=== PATIENT | male | born 1950 | race Caucasian/White ===

== ENCOUNTER 2020-09-15 14:03 | Outpatient (CLI) | payer OTHER, SELFPAY ==
[2020-09-20 03:11] LABS: Abnormal Protein Band 1 3.7 g/dL; Albumin 3.7 g/dL (3.8-4.8); Alpha 1 Globulin 0.3 g/dL (0.2-0.3); Alpha 2 Globulin 0.7 g/dL (0.5-0.9); Beta 1 Globulin 0.4 g/dL (0.4-0.6); Gamma Globulin 3.9 g/dL (0.8-1.7); Protein, Total 9.1 g/dL (6.1-8.1)
== END 2020-09-15 14:04 | disposition home or self-care (01) ==
PROVIDERS: PCP Emergency Medicine; Visit Provider Emergency Medicine
DX: R79.82 Elevated C-reactive protein (CRP) (principal)
CPT/HCPCS: 36415; 84155; 84165

== ENCOUNTER 2020-10-28 14:54 | Outpatient (CLI) | payer OTHER, SELFPAY ==
--- NOTE | ~2020-10-28 | DEXA_ITS ---
Bone Density Report Name: Tommy Antony Age: 70 Sex: Male Ethnicity: White Date of : 1950 Indication: osteopenia; height loss; Referring Provider: Abhinav Caal Study: Bone densitometry was performed. Exam Date: October 28, 2020 Accession number: [id number] Bone Density: Region BMD T-score Z-score Classification AP Spine (L1-L4) 0.851 -2.2 -1.3 Osteopenia Femoral Neck (Left) 0.522 -3.0 -1.8 Osteoporosis Total Hip (Left) 0.709 -2.1 -1.4 Osteopenia Total Hip Bilateral Avg 0.680 -2.3 -1.6 Osteopenia Femoral Neck (Right) 0.481 -3.3 -2.1 Osteoporosis Total Hip (Right) 0.650 -2.5 -1.8 Osteoporosis World Health Organization criteria for BMD impression classify patients as: Normal (T-score at or above -1.0), Osteopenia (T-score between -1.0 and -2.5), or Osteoporosis (T-score at or below -2.5). 10-year Fracture Risk: FRAX not reported because: Some T-score for Spine Total or Hip Total or Femoral Neck at or below -2.5 Previous Exams: Region Exam Age BMD T-score BMD Change BMD Change Date g/cm2 vs Baseline vs Previous AP Spine(L1-L4) 10/28/2020 70 0.851 -2.2 -0.031(-3.5%)* -0.031(-3.5%)* 10/23/2016 66 0.882 -1.9 Total Hip(Left) 10/28/2020 70 0.709 -2.1 -0.054(-7.1%)* -0.054(-7.1%)* 10/23/2016 66 0.763 -1.8 Total Hip(Right) 10/28/2020 70 0.650 -2.5 -0.087(-11.8%) -0.087(-11.8%) 10/23/2016 66 0.737 -2.0 *Denotes significance at 95% confidence level, LSC for AP Spine = 0.022 g/cm2, LSC for Total Hip = 0.027 g/cm2 Clinical Information Provided by Patient: Has used the following medications: Vitamin D Patient maximum height was 69 No regular weight bearing exercise Drinks caffeinated beverages Impression: The patient has osteoporosis, based on the Right Femoral Neck T-score. The BMD for the AP Spine(L1-L4) decreased, changing by -3.5% since the last DXA exam. The BMD for the Total Hip(Left) decreased, changing by -7.1% since the last DXA exam. The BMD for the Total Hip(Right) decreased, changing by -11.8% since the last DXA exam. Discussion: HIGH RISK OF FRACTURE. BONE DENSITY IS UNDESIRABLY LOW AT ONE OR MORE SKELETAL SITES, CONSISTENT WITH OSTEOPOROSIS. ALSO, BONE DENSITY IS LOWER THAN EXPECTED FOR AGE, SEX AND RACE AT ONE OR MORE SKELETAL SITES; RECOMMEND A DILIGENT SEARCH FOR SECONDARY CAUSES OF BONE LOSS. This patient's lowest T-score meets the World Health Organization's (WHO) criteria for osteoporosis at one or more sites (T-score -2.5 or below)
== END 2020-10-28 14:55 | disposition home or self-care (01) ==
PROVIDERS: PCP Emergency Medicine; Visit Provider Emergency Medicine
DX: M81.0 Age-related osteoporosis without current pathological fracture (principal); M85.851 Other specified disorders of bone density and structure, right thigh; M85.852 Other specified disorders of bone density and structure, left thigh
CPT/HCPCS: 77080

== ENCOUNTER 2021-08-01 20:24 | Emergency (ER) | payer OTHER, SELFPAY ==
--- NOTE | ~2021-08-01 | XR_ITS ---
EXAM: XR thoracic spine 2V HISTORY: PAIN SINCE MAY RADIATES DOWN RT LEG,WORSE TONIGHT COMPARISON: X-ray chest 09/25/2014. FINDINGS: Severely decreased mineralization. This decreases the sensitivity of radiographs. Exaggera yvette thoracic kyphosis. Severe height loss at T12. Mild anterior wedge deformity at T11. Remaining una tebral body heights are maintained given that the upper thoracic spine is poorly visualized in the la teral view. IMPRESSION: Limited exam due to severe osteopenia and poor visualization of the upper thoracic spine and lateral view. Acute versus chronic thoracic compression deformities, severe at T12, mild at T11. Reviewed, dictated and finalized at location K. IMPRESSION: Limited exam due to severe osteopenia and poor visualization of the upper thora cic spine and lateral view. Acute versus chronic thoracic compression deformities, severe at T12, mild at T 11.
--- NOTE | ~2021-08-01 | XR_ITS ---
EXAM: XR lumbar spine 2-3V HISTORY: PAIN SINCE MAY RADIATES DOWN RT LEG,WORSE TONIGHT COMPARISON: CT abdomen and pelvis 09/26/2014. FINDINGS: Bilateral iliac grafts. Soft tissue anchors project over the right pelvis. Severe osteopen ia. 5 nonrib-bearing lumbar-type vertebral bodies with intact pedicles. Stable grade 1 anterolisthesi s of L4 on L5. Multilevel vertebral body height loss at all levels in the lumbar spine. Mild anterior wedge deformity of L2 and L3. IMPRESSION: Moderate vertebral body compression fractures, all levels in the lumbar spine. All demonstrate progre ssion since the comparison study. Reviewed, dictated and finalized at location K. IMPRESSION: Moderate vertebral body compression fractures, all levels in the lumbar spine. All demonstrate progression since the comparison study.
--- NOTE | ~2021-08-01 | CT_ITS ---
EXAMINATION: CT thoracic lumbar wo con DATE: 08/01/2021 23:26 INDICATION: Back pain TECHNIQUE: Computed tomography (CT) of the thoracic and lumbar spine was performed without intravenou s contrast. The dose-length product (DLP) was 1276.51 mGy-cm. Iterative reconstruction was used. COMPARISON: None FINDINGS: Thoracic spine: There is an age-indeterminate compression fracture of T6 with approximately 50% loss of anterior vertebral body height. There is an age-indeterminate compression fracture of T12 with rusty roximately 70% of anterior vertebral body loss. Bone alignment is normal. There is moderate to severe loss of intervertebral disc space height at multiple levels in the thoracic spine. Lumbar spine: There are multiple age-indeterminate fractures of the lumbar spine. At L1 there is a co mpression fracture with approximately 30% vertebral body loss. At L2 there is a compression fracture with approximately 50% vertebral body height loss. At L3 there is a compression fracture with approxi mately 40% vertebral body height loss. There is a burst fracture of L4 with approximately 4 mm of ret ropulsion of fracture fragments. There is a compression fracture of L5 with approximately 35% vertebr al body height loss. There is severe loss of intervertebral disc space height at L1-2 and L5-S1. Endo luminal stents are noted in the common iliac veins. IMPRESSION: 1. Age-indeterminate compression and burst fractures of the thoracic and lumbar spine as detailed abo ve. Reviewed, dictated and finalized at location A. IMPRESSION: 1. Age-indeterminate compression and burst fractures of the thoracic and lumbar spine as detailed above.
[2021-08-01 20:27] VITALS: BP 110/61; PULSE 93; RESP 16; TEMP 37.3; O2SAT 99
[2021-08-01 22:14] VITALS: BP 129/73; PULSE 78; RESP 18; O2SAT 98
[2021-08-01] MEDS: IBUPROFEN 600 MG TABLET PO (23:03)
[2021-08-01] MEDS: ACETAMINOPHEN 325 MG TABLET 650 MG PO (23:04)
--- NOTE | 2021-08-01 23:07 | PC.NURSE ---
assumed care of pt. at this time. report from ISAI Castano and ISAI Velásquez
[2021-08-01 23:08] VITALS: BP 110/61; PULSE 74; RESP 19; O2SAT 98
[2021-08-01] MEDS: LIDOCAINE 5% PATCH 1 PATCH TRANSDERM (23:57)
--- NOTE | 2021-08-02 00:07 | ED.BACK ---
HPI - Back Pain/Injury General Chief Complaint: Back Pain/Injury <PHYLLIS Hawkins Last Filed: 08/02/21 02:10> Stated Complaint: Back pain, seizing up <PHYLLIS Hawkins Last Filed: 08/02/21 02:10> Time Seen by Provider: 08/01/21 22:05 <PHYLLIS Hawkins Last Filed: 08/02/21 02:10> History of Present Illness HPI Narrative: Patient is a 70-year-old male here for evaluation of low back pain that first came on about 2 months ago but worsened in severity today. The pain begins in his right low back and occasionally will radiate down his right leg or left lower back. He states the pain feels like a spasm . The pain worsened today when he was twisting his torso. He attempted 400 milligrams of ibuprofen without relief of pain. He denies no known trauma to his back, no recent falls, incontinence or retention of his bowel or bladder, saddle anesthesia. Denies any chest pain, shortness of breath, fevers, rashes. <PHYLLIS Hawkins Last Filed: 08/02/21 02:10> Related Data Allergies/Adverse Reactions: Allergies Allergy/AdvReac Type Severity Reaction Status Date / Time Penicillins Allergy Intermediate Unknown Verified 08/01/21 23:06 <PHYLLIS Hawkins Last Filed: 08/02/21 02:10> Review of Systems Review of Systems: Gen.: Denies fevers or chills Eyes: Denies eye pain or visual change ENT: Denies congestion Respiratory: Denies shortness of breath or cough CV: Denies chest pain or palpitations GI: Denies abdominal pain nausea, emesis or diarrhea denies burning, urgency, frequency or hematuria Musculoskeletal: Reports back pain. Denies saddle anesthesia, incontinence or retention of bowel or bladder. Neuro: Denies numbness, tingling, weakness or focal weakness Skin: Denies rash Except as documented, all other systems reviewed and negative <PHYLLIS Hawkins Last Filed: 08/02/21 02:10> Exam Narrative: APPEARANCE: Uncomfortable appearing. Head normocephalic and atraumatic. EYES: PERRLA/EOMI, conjunctivae clear EARS: External ear normal in appearance THROAT: Oropharynx is clear. Mucous membranes are moist. NECK: Supple. No adenopathy, no masses. RESPIRATORY: Airway patent, respirations nonlabored. Clear to auscultation bilaterally, no rales, rhonchi, wheezing. CARDIOVASCULAR: Regular rate and rhythm without murmurs, rubs, or gallops. 2+ DP and PT pulses bilaterally. ABDOMINAL: Normoactive bowel sounds. Soft, nontender, nondistended. No rebound tenderness or guarding. MUSCULOSKELETAL: Tender to palpation in left paraspinal region; no palpable muscle spasm. No midline tenderness along cervical, thoracic, or lumbar spine. Straight leg raise negative bilaterally. Extremities are warm and well-perfused. No edema. No CVA tenderness. NEURO: Normal speech. No focal neurologic deficits. SKIN: Skin is warm and dry. No rashes. Patient has dry skin to bilateral lower extremities with thick toenails, but no ulcers noted on feet bilaterally. PSYCHIATRIC: Normal affect/mood. <Lisa Cueva PA-C - Last Filed: 08/02/21 02:10> Course Course Emergency Course: CT L spine and T spine with evidence of compression fracture at T6 and T12, with no evidence of retropulsion or posterior element fracture. <Lisa Cueva PA-C - Last Filed: 08/02/21 02:10> OUTPATIENT SERVICES DIRECTOR/PA Physician Supervision I did not see this patient but the care plan was discussed with me, imaging reviewed. I agree with the documentation as above <Alex Alas MD - Last Filed: 08/02/21 02:23> Vital Signs Vital signs: Vital Signs Temperature 37.3 C 08/01/21 20:27 Pulse Rate 93 08/01/21 20:27 Respiratory Rate 16 08/01/21 20:27 Blood Pressure 110/61 08/01/21 20:27 Pulse Oximetry 99 08/01/21 20:27 Temperature 37.3 C 08/01/21 20:27 Pulse Rate 88 08/02/21 02:15 Respiratory Rate 14 08/02/21 02:15 Blood Pressure 110/74
[2021-08-02] MEDS: CYCLOBENZAPRINE HCL 10 MG TABLET PO (01:14)
[2021-08-02 01:18] VITALS: BP 111/74; PULSE 77; RESP 14; O2SAT 97
[2021-08-02 02:15] VITALS: BP 110/74; PULSE 88; RESP 14; O2SAT 97
== END 2021-08-02 02:15 | disposition home or self-care (01) ==
PROVIDERS: Emergency Provider Emergency Medicine; PCP Emergency Medicine
DX: S39.012A Strain of muscle, fascia and tendon of lower back, initial encounter (principal); X58.XXXA Exposure to other specified factors, initial encounter
CPT/HCPCS: 72070; 72100; 72128; 72131; 99284; A9270

== ENCOUNTER 2021-09-01 23:51 | Inpatient (IN) | payer OTHER, SELFPAY ==
--- NOTE | ~2021-09-01 | BM_ITS ---
EXAMINATION: CCL bone marrow asp w bx diag ORDER COMPLETED DATE: 09/05/2021 12:58 INDICATION: Multiple myeloma workup. Multiple fractures suspicious for pathologic fracture. TECHNIQUE: A time-out was performed to verify the patient's name, date of , and procedure to b e performed. The procedure including the risks and benefits was discussed with the patient. Risks dis cussed included bleeding, infection, nerve injury and allergic reaction. The patient understood the r isks and agreed to proceed. The skin overlying the right posterior iliac spine was prepped and draped in usual sterile fashion. Anesthetic was administered with 1% lidocaine subcutaneously. Moderate co nscious sedation was achieved with 100 mcg fentanyl IV and 2 mg of Versed IV. An 11 gauge needle was inserted into the ilium with fluoroscopic guidance. Bone marrow was aspirated. An 8 gauge needle was then inserted into the ilium with fluoroscopic guidance. A core bone marrow biopsy was obtained. The needle was removed and the entry site was cleaned and dressed. There were no immediate complications . A total of 9 fluoroscopic images were recorded. Fluoroscopy exposure time was 0.1 minutes. Total DA P was 48.0 mGycm^2 FINDINGS: Real-time fluoroscopy demonstrates the biopsy needle tip overlying the right posterior mehnaz c spine. IMPRESSION: 1. Successful fluoroscopic guided bone marrow aspiration. 2. Successful fluoroscopic guided bone marrow biopsy. Reviewed, dictated and finalized at location A.
--- NOTE | ~2021-09-01 | CT_ITS ---
EXAMINATION: CTA chest PE protocol DATE: 09/02/2021 05:17 INDICATION: Shortness of breath, tachycardia TECHNIQUE: Computed tomography angiography (CTA) of the chest was performed with 100 mL Omnipaque-350 intravenous contrast timed to evaluate the pulmonary arteries. Coronal maximum intensity projection 3D-reconstructions were created by the technologist. The dose-length product (DLP) was 526.72 mGy-cm. Automated exposure control and iterative reconstruction technique were employed. COMPARISON: 08/01/2021 FINDINGS: The pulmonary arteries are moderately well-opacified. No pulmonary embolism is identified. There are airspace opacities in the lower lobes. Small pleural effusions are present. There is no pne umothorax. Cardiomegaly is noted. There are no pathologically enlarged thoracic lymph nodes. There ar e multiple left-sided rib fractures, some acute and some healing. There is a new burst fracture of T1 1. There is a stable burst fracture of T12 there is stable compression fracture of T6. IMPRESSION: 1. No pulmonary embolism identified. 2. Bibasilar airspace opacities, consistent with atelectasis and/or pneumonia. 3. New burst fracture of T11. 4. Multiple left-sided rib fractures, acute and healing. Reviewed, dictated and finalized at location A.
--- NOTE | ~2021-09-01 | XR_ITS ---
EXAMINATION: XR chest 1V portable INDICATION: Shortness of breath TECHNIQUE: Portable AP chest at 0129 hours COMPARISON: 09/25/2014 FINDINGS: There is mild atelectasis of the lung bases. No pleural effusion or pneumothorax is identif ied. Cardiomegaly is noted. IMPRESSION: 1. Mild atelectasis of the lung bases. Reviewed, dictated and finalized at location A.
--- NOTE | ~2021-09-01 | XR_ITS ---
EXAMINATION: BONE SURVEY/METASTATIC SURVEY DATE: 09/02/2021 INDICATION: Old fractures. Assess for multiple myeloma. TECHNIQUE: A skeletal survey was performed including AP views of the chest, abdomen and pelvis; AP an d lateral/lateral swimmers views of the cervical, thoracic and lumbar spine; lateral view of the skul l, and AP and lateral views of the appendicular skeleton excluding the hands and feet. COMPARISON: CT chest dated 09/02/[address] thoracic and lumbar spine dated 08/01/2021 FINDINGS: There are multiple chronic thoracic and lumbar compression and burst fractures. There are also severa l bilateral rib fractures which appear to be a very including ascites. Comment diffuse osteopenia thr oughout the axial and appendicular skeleton with increased prominence of the trabecular pattern resul ting in artifactual appearance of numerous small lucencies which is most conspicuous in the long bone s. Multiple small lucencies project over the skull but no definitive lytic lesions along the profiled portions of the inner or outer tables of the skull. No clearly suspicious lytic or blastic bone lesi ons evident on the plain radiographs. On review of the CT images of the chest, thoracic and lumbar sp ine there is redemonstration of the prominent diffuse osteopenia resulting diffuse increased lucency of the bones. The most suspicious locations for or discrete lytic lesions include at the right escalator attendant ior aspect of the T1 vertebral body where there is loss of the trabecular pattern and with heterogene ous soft tissue attenuation medullary space which extends into the right transverse process. Endolumi nal stenting of the left and right common iliac veins. Postoperative change of right inguinal hernia repair. Small lung volumes particularly on the left where there is relative elevation left hemidiaphr agm. Bibasilar opacities most likely atelectasis although differential includes pneumonia. Heart size is normal. IMPRESSION: 1. Multiple compression and burst fractures in the thoracic and lumbar spine and multiple bilateral r ib fractures of varying thickness disease. 2. Widespread increased lucency of the bones with appearance consistent with marked diffuse osteopeni a. No definitive lytic lesions evident on the plain radiographs although there is suggestion of a cou ple potential lytic lesions on the CT images at T1 and at the left innominate bone for which differen tial would include both osteopenia and multiple myeloma. Reviewed, dictated and finalized at location A. IMPRESSION: 1. Multiple compression and burst fractures in the thoracic and lumbar spine an d multiple bilateral rib fractures of varying thickness disease. 2. Widespread increased lucency of the bones with appearance consistent with ma rked diffuse osteopenia. No definitive lytic lesions evident on the plain radio graphs although there is suggestion of a couple potential lytic lesions on the CT images at T1 and at the left innominate bone for which differential would in clude both osteopenia and multiple myeloma.
[2021-09-01 23:56] VITALS: BP 146/81; PULSE 121; RESP 26; TEMP 37.3; O2SAT 98
[2021-09-02] VITALS (44 sets, daily range): BP systolic 101–158; BP diastolic 66–101; PULSE 93–115; RESP 12–25; TEMP 36.3–36.9; O2SAT 97–100; BMI 24.7
--- NOTE | 2021-09-02 | ECHO_ITS ---
Patient Info Name: Tommy Antony Age: 71 years : 1950 Gender: Male Ht: 64 in Wt: 144 lbs BSA: 1.73 m2 HR: 103 bpm BP: 127 / 66 mmHg Heart Rhythm: Sinus Rhythm Technical Quality: Fair Exam Date: 09/02/2021 4:34 PM Exam Location: [facility] Patient Status: Inpatient Admit Date: 09/02/2021 Staff Ordering Physician: Isacc Dumont MD Accounting Tutor: Pina Aguiar RDCS Attending Provider: Leandro Joy DO Exam Type: CA echo doppler color flow Study Info Indications - cp Complete two-dimensional, color flow and Doppler transthoracic echocardiogram is performed. Summary 1. Complete two-dimensional, color flow and Doppler transthoracic echocardiogram is performed. 2. Left ventricular chamber dimension is normal. 3. Left ventricular systolic function is normal, estimated at 60-65%. 4. There is mildly increased left ventricular wall thickness. 5. The left ventricular diastolic function is grade I diastolic dysfunction. 6. E/e' 6 is not elevated. 7. Left atrial chamber dimension is moderately enlarged. 8. The mitral valve has mildly calcified annulus. 9. There is trace mitral valve regurgitation. 10. There is trace tricuspid valve regurgitation. 11. No pulmonary hypertension, estimated pulmonary arterial systolic pressure is 36 mmHg. 12. There is trace pulmonic regurgitation. Left Ventricle E/e' 6 is not elevated. Left ventricular chamber dimension is normal. Left ventricular systolic function is normal, estimated at 60-65%. There is mildly increased left ventricular wall thickness. The left ventricular diastolic function is grade I diastolic dysfunction. Right Ventricle Right ventricular systolic function is normal and with normal TAPSE 2.5 cm. Right ventricular chamber dimension is normal. Left Atria Left atrial chamber dimension is moderately enlarged. Right Atria Right atrial chamber dimension is normal. Aortic Valve The aortic valve is trileaflet. There is no aortic valve stenosis. There is no aortic valve regurgitation. Pulmonic Valve There is trace pulmonic regurgitation. Mitral Valve The mitral valve has mildly calcified annulus. There is no mitral valve stenosis. There is trace mitral valve regurgitation. Tricuspid Valve There is trace tricuspid valve regurgitation. No pulmonary hypertension, estimated pulmonary arterial systolic pressure is 36 mmHg. Pericardium/Pleural There is no pericardial effusion. Inferior Vena Cava Normal inferior vena cava with >50% collapse upon inspiration consistent with normal right atrial pressure, 5 mmHg. Aorta The aortic root size at the sinus of Valsalva is normal. Left Ventricular Outflow Tract Name Value Normal LVOT 2D LVOT Diameter 2.0 cm LVOT Doppler LVOT Peak Gradient 7 mmHg LVOT Mean Gradient 3 mmHg LVOT VTI 21 cm LVOT VTI/AV VTI Ratio 0.9 LVOT Stroke Volume 67 ml LVOT CO 6.7 l/min LVOT CI
--- NOTE | 2021-09-02 | ECG_ITS ---
Measurements Intervals [place] Rate: 117 P: 56 TN: 141 QRS: 24 QRSD: 96 T: 12 QT: 295 QTc: 412 Interpretive Statements SINUS TACHYCARDIA VENTRICULAR PREMATURE COMPLEX BORDERLINE ST-T WAVE ABNORMALITY- INFERIOR LEADS BASELINE ARTIFACT- I, II, III, AVL, AVF, V5-V6 ABNORMAL ECG Electronically Signed On 09-02-2021 6:33:28 CDT by Madi Bradley D.O.
[2021-09-02] MEDS: ALBUTEROL SULFATE NEB 2.5 MG/3 ML INH 5 MG INHALATION ×3 (00:52→02:18)
[2021-09-02] MEDS: IPRATROPIUM BR 0.02% INH SOLN 0.5 MG/2.5 ML VIAL INHALATION ×3 (00:53→02:18)
[2021-09-02 01:26] LABS: Alanine Aminotransferase 21 U/L (6-50); Albumin Level 3.2 g/dL (3.5-5.1); Alkaline Phosphatase 106 U/L (38-126); Anion Gap 4 mmol/L (8-16); Aspartate Amino Transferase 42 U/L (17-59); Bilirubin,Total 0.2 mg/dL (0.2-1.3); Blood Urea Nitrogen 30 mg/dL (9-20); Carbon Dioxide 26 mmol/L (22-30); Chloride 113 mmol/L (98-107); Estimated CRCL calculation 49 ml/min; Estimated Glomerular Filt Rate > 60; Glucose 100 mg/dL (65-110); Magnesium 1.7 mg/dL (1.6-2.3); Potassium 4.2 mmol/L (3.4-5.0); Sodium 143 mmol/L (137-145)
[2021-09-02 01:40] LABS: NT Pro B Type Natriuretic Pept 83 pg/mL (5-100); Troponin I 0.036 ng/mL (0.000-0.034)
[2021-09-02 01:42] LABS: Basophils Percent Auto 0.4 % (0.2-1.2); Eosinophils Absolute Auto 0.1 K/mm3 (0-0.3); Eosinophils Percent Auto 1.8 % (0-4.4); Hematocrit 23.8 % (42.0-52.0); Hemoglobin 7.2 g/dL (14.0-18.0); Immature Granulocyte Absolute 0.03 K/mm3 (0.00-0.031); Immature Granulocyte Percent A 1.1 % (0-0.5); Lymphocytes Absolute Auto 1.09 K/mm3 (0.9-3.2); Lymphocytes Percent Auto 39.6 % (18.3-44.2); Mean Corpuscular HGB Conc 30.3 g/dl (32-36); Mean Corpuscular Volume 109.2 fl (80-100); Mean Platelet Volume 8.6 fl (7.4-10.4); Monocytes Absolute Auto 0.1 K/mm3 (0.1-0.6); Neutrophils Absolute Auto 1.5 K/mm3 (1.3-6.7); Neutrophils Percent Auto 53.1 % (45.5-73.1); Platelet Count Result 154 k/mm3 (150-375); Red Blood Count 2.18 M/mm3 (4.6-6.20); Red Cell Distribution Width 16.2 % (11.5-14.5); White Blood Count 2.8 K/mm3 (4.5-10.0)
[2021-09-02] MEDS: WARFARIN (*PBKC) 2 MG TABLET PO (02:42)
[2021-09-02 04:27] LABS: Troponin I 0.039 ng/mL (0.000-0.034)
--- NOTE | 2021-09-02 04:28 | ED.SOB ---
HPI - SOB/Dyspnea General Chief Complaint: Shortness of Breath/Dyspnea Stated Complaint: sob Time Seen by Provider: 09/02/21 00:03 History of Present Illness HPI Narrative: 71-year-old male presents here with 1 month of difficulty breathing, worse with exertion, he is already on Coumadin for DVT, she was seen in clinic today and with his shallow breathing, the nurse told him come to the ER. Denies any nausea or vomiting, fevers or chills, cough. Related Data Allergies Allergy/AdvReac Type Severity Reaction Status Date / Time Penicillins Allergy Intermediate Unknown Verified 08/01/21 23:06 Review of Systems Review of Systems: All systems reviewed & are unremarkable except as noted in HPI and below PMFSH Past Medical History Medical History DVT (deep venous thrombosis) Exam Narrative: EXAMINATION OF ORGAN SYSTEMS/BODY AREAS: Constitutional: Vital signs per nursing GENERAL:[No acute distress, non-toxic appearing.] HEAD: Normal with no signs of head trauma. EYES: EOMI, conjunctiva normal ENT: Hearing grossly intact LUNGS: Tachypneic, clear lung sounds HEART: Tachycardic ABD: [Soft], [nontender to palpation] EXT: Normal range of motion SKIN: [No rashes or lesions.] NEURO: [Alert and oriented x 3. No gross focal sensory or strength deficits.] PSYCH: Normal affect Course Course Emergency Course: ED COURSE AND MEDICAL DECISION MAKIN-year-old male presenting with dyspnea on exertion. Vital signs notable for tachycardia, exam shows clear lungs but dyspneic patient. Differential includes ACS/GA, valvular etiology, less likely PE as he has been taking Coumadin, possibly COPD. EKG done in triage negative for acute ischemic changes. Cardiac workup is initiated. EKG: Performed in triage and interpreted by me. Sinus tachycardia. Rate 117. Normal axis. RI normal. QRS duration normal. QTc normal. No pathologic Q waves. No ST segment elevation or depression to suggest acute ischemia. No RV strain pattern. Troponin is elevated, ASA is given, I feel patient would benefit from admission at this time, he is amenable to this. DISPOSITION: Admit to telemetry, case discussed with hospitalist IMPRESSION: Acute chest pain, NOS. Vital Signs Vital signs: Vital Signs Temperature 99.2 F 09/01/21 23:56 Pulse Rate 121 H 09/01/21 23:56 Respiratory Rate 26 H 09/01/21 23:56 Blood Pressure 146/81 H 09/01/21 23:56 Pulse Oximetry 98 09/01/21 23:56 Temperature 99.2 F 09/01/21 23:56 Pulse Rate 109 H 09/02/21 02:18 Respiratory Rate 20 09/02/21 02:18 Blood Pressure 146/81 H 09/01/21 23:56 Pulse Oximetry 99 09/02/21 00:11 MDM - SOB/Dyspnea Lab Data Result diagrams: 09/02/21 01:08 09/02/21 01:08 Labs: Lab Results 09/02/21 09/02/21 09/02/21 Range/Units 01:08 01:08 03:49 WBC 2.8 L (4.5-10.0) K/mm3 RBC 2.18 L (4.6-6.20) M/mm3 Hgb 7.2 L (14.0-18.0) g/dL Hct 23.8 L (42.0-52.0) % MCV 109.2 H (80-100) fl MCH 33.0 (26-34) pg MCHC 30.3 L (32-36) g/dl RDW 16.2 H (11.5-14.5) % Plt Count 154 (150-375) k/mm3 MPV 8.6 (7.4-10.4) fl Immature Gran % (Auto) 1.1 H (0-0.5) % Neut % (Auto) 53.1 (45.5-73.1) % Lymph % (Auto) 39.6 (18.3-44.2) % Webb % (Auto) 4.0 (2.6-8.5) % Eos % (Auto) 1.8 (0-4.4) % Baso % (Auto) 0.4 (0.2-1.2) % Lymph # (Auto) 1.09 (0.9-3.2) K/mm3 Webb # (Auto) 0.1 (0.1-0.6) K/mm3 Eos # (Auto) 0.1 (0-0.3) K/mm3 Baso # (Auto) 0.0 (0.0-0.1) K/mm3 Abs Immat Gran (auto) 0.03 (0.00-0.031) K/mm3 Absolute Neuts (auto) 1.5 (1.3-6.7) K/mm3 Absolute Nucleated RBC 0.0 (0.0-0.012) K/mm3 Nucleated RBC % 0.0 (0.0-0.2) % Sodium 143 (137-145) mmol/L Potassium 4.2 (3.4-5.0) mmol/L Chloride 113 H (98-107) mmol/L Carbon Dioxide 26 (22-30) mmol/L Anion Gap 4 L (8-16) mmol/L BUN 30 H
[2021-09-02 04:39] LABS: SARS-CoV-2 RNA PCR Negative
[2021-09-02] MEDS: ASPIRIN 81 MG CHEWABLE TABLET 324 MG PO (05:30)
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
--- NOTE | 2021-09-02 07:56 | ADMGEN ---
This patient, Tommy Antony, was admitted to IMU Room 202-01 at 0721. Patient/family oriented to hospital policies and general routines including ID bracelet, bed and alarms, visiting hours, pain management, procedures, bathroom and other care routines, personal items, smoking policy, room service/diet, and visiting hours. Information on how to activate the Rapid Response Team has been discussed. Patient/Family are encouraged to report perceived risks to care and to ask questions if they do not understand what they are told or what they should do.
[2021-09-02 14:37] LABS: Immature Reticulocyte Fraction 16.9 % (3.0-15.9); Reticulocyte Hemoglobin Conten 31.8 pg (28.2-35.7); Reticulocyte Percent 0.89 % (0.7-4.3); Reticulocytes Absolute 0.02 B/L (32.2-175.7)
[2021-09-02 14:46] LABS: Phosphorus 4.2 mg/dL (2.5-4.5)
[2021-09-02 14:48] LABS: Rheumatoid Factor < 8.6 IU/ML (<12)
[2021-09-02 14:48] LABS: INR 2.7; Partial Thromboplastin Time 35.2 SECONDS (22.3-36.8); Prothrombin Time 27.7 Seconds (11.1-14.7)
[2021-09-02 15:06] LABS: Iron 74 ug/dL (49-181)
[2021-09-02 15:16] LABS: Percent Iron Saturation 30 % (20-50)
[2021-09-02 15:28] LABS: Hemoglobin A1C 5.9 % (<5.7)
[2021-09-02 15:53] LABS: Folic Acid 7.6 ng/mL (2.76->20)
[2021-09-02 15:54] LABS: Immunoglobulin A < 40 mg/dL (70-400); Immunoglobulin G 6220 mg/dL (700-1600); Immunoglobulin M < 25 mg/dL (40-230)
[2021-09-02 16:19] LABS: Vitamin D 25 Hydroxy 64.2 ng/mL
[2021-09-02] MEDS: FERROUS SULFATE 324 MG TABLET PO (16:20)
[2021-09-02] MEDS: TAMSULOSIN HCL 0.4 MG CAPSULE PO (16:20)
[2021-09-02] MEDS: PANTOPRAZOLE 40 MG TABLET PO (16:21)
[2021-09-02 16:45] LABS: Glucose Point of Care 105 mg/dl (65-105)
--- NOTE | 2021-09-02 16:47 | PDONCCN ---
HPI - Date of Consult Date/Time: 09/02/21 16:47 Requesting Physician: Leandro Joy DO Primary Care Provider: Abhinav Caal MD - Consult Narrative Reason for consult: Likely multiple myeloma Narrative: Tommy Antony is a 71 year old male who has been in good health came to the emergency department with complaint of shortness of breath. He developed back pain while he was shoveling snow back in May of 2021. He came to the ER in July and found to have compression fracture of T6 and T12 vertebral body. Now he has been dealing with ribcage pain especially when he tries to take deep breath. He denies any weight loss. CTA chest showed no PE but new T11 burst fracture. Labs showed hemoglobin of 7.2 with WBC of 2.8. Total protein was elevated at 10.0. Quantitative immunoglobulin showed IgG level of 6220. He denies any previous history of malignancy. Review of Systems - Review of Systems All systems reviewed & are unremarkable except as noted in [facility] and [facility] Medical History: Medical History (Last Updated 09/02/21 @ 14:11 by Isacc Dumont MD) BPH (benign prostatic hyperplasia) Chronic venous stasis Stents in common iliac veins for the chronic edema Diabetes mellitus Patient denies DVT (deep venous thrombosis) Right common femoral in 2014 History of nephrolithiasis obstructing req hosp in 2014 Hx of essential hypertension Patient denies Osteoporosis Surgical History: Surgical History (Last Updated 09/02/21 @ 06:55 by Isacc Dumont MD) Hx of hemorrhoidectomy Hx of tonsillectomy Family History: Family History (Last Reviewed 09/02/21 @ 13:43 by Isacc Dumont MD) Mother Heart disease CHF (congestive heart failure) Father Parkinson disease - Social History Social History: Social History (Last Updated 09/02/21 @ 13:44 by Isacc Dumont MD) Alcohol Use: Alcohol intake: never Substance Use: Substance use: never Others: Spiritual care concerns: No Smoking Status: Smoking status: Never smoker Meds Home Medications Medication Instructions Recorded Confirmed Type cyclobenzaprine 10 mg PO TID PRN #30 tablet 08/09/21 09/02/21 Rx cholecalciferol (vitamin D3) 50,000 unit PO MONTHLY 09/02/21 09/02/21 History ferrous sulfate 325 mg PO DAILY 09/02/21 09/02/21 History tamsulosin 0.4 mg PO DAILY 09/02/21 09/02/21 History warfarin 6 mg PO DAILY 09/02/21 09/02/21 History Allergies Allergy/AdvReac Type Severity Reaction Status Date / Time Penicillins Allergy Intermediate Unknown Verified 08/01/21 23:06 Results - Labs CBC & Chem 7: 09/02/21 01:08 09/02/21 01:08 Labs: Short CBC 09/02/21 Range/Units 01:08 WBC 2.8 L (4.5-10.0) K/mm3 Hgb 7.2 L (14.0-18.0) g/dL Hct 23.8 L (42.0-52.0) % Plt Count 154 (150-375) k/mm3 BMP 09/02/21 01:08 Sodium 143 Potassium 4.2 Chloride 113 H Carbon Dioxide 26 BUN 30 H Creatinine 1.10 Glucose 100 Calcium 8.0 L Cardiac Enzymes 09/02/21 09/02/21 Range/Units 01:08 03:49 Troponin I 0.036 H* 0.039 H* (0.000-0.034) ng/mL Liver Function 09/02/21 Range/Units 01:08 Total Bilirubin 0.2 (0.2-1.3) mg/dL AST 42 (17-59) U/L ALT 21 (6-50) U/L Alkaline Phosphatase 106 (38-126) U/L Albumin 3.2 L (3.5-5.1) g/dL Assessment and Plan - Additional Plan Likely multiple myeloma. Patient came into the hospital with ribcage pain feels like charley horses specially with a deep breath. CTA chest showed no evidence of PE but new T11 burst fracture. Labs showed leukopenia and anemia with elevated serum protein. Quantitative immunoglobulin showed elevated IgG level. Serum protein electrophoresis immunofixation is pending. Skeletal survey has been performed and results are pending. I will order bone marrow aspiration and biopsy. I have provided him my office information for follow-up. Anemia. Kidney function is normal. Ir
--- NOTE | 2021-09-02 17:25 | PM.CNOR ---
Assessment and Plan Assessment and plan (1) Vertebral fracture: Qualifiers: Encounter type: initial encounter Fracture morphology: wedge compression Fracture of vertebra location: thoracic Fracture type: closed Thoracic vertebra fracture level: unspecified thoracic vertebra Qualified Code(s): S22.000A - Wedge compression fracture of unspecified thoracic vertebra, initial encounter for closed fracture Status: Acute Assessment and Plan: Multiple compression fractures at varying stages of healing. Thoracic kyphosis. Complains of episodic severe thoracic pain. Pain may be secondary to the fractures or systemic disease (multiple myeloma). Consider a thoracic brace. This can be ordered from [facility]. The patient says he is overwhelmed by all of the information today, and would like to consider his options. History of Present Illness HPI Consult date: 09/02/21 Chief complaint: Dyspnea on exertion, elevated troponin Narrative: 71 y.o. male complains of intermittent severe chest pain, rib pain and thoracic back pain. Several episodes of worsening symptoms over the last few months. Diagnosed with T11 compression fracture in the ER in July. He was referred to neurosurgery but did not follow up. Now complains of persistent symptoms and admitted for evaluation. Review of Systems Review of Systems: Gen.: Denies fevers or chills Eyes: Denies eye pain or visual change ENT: Denies congestion Respiratory: Denies shortness of breath or cough CV: Denies chest pain or palpitations GI: Denies abdominal pain nausea, emesis or diarrhea denies burning, urgency, frequency or hematuria Musculoskeletal: Reports back pain. Denies saddle anesthesia, incontinence or retention of bowel or bladder. Neuro: Denies numbness, tingling, weakness or focal weakness Skin: Denies rash Except as documented, all other systems reviewed and negative [facility] Past Medical History Medical History BPH (benign prostatic hyperplasia) Chronic venous stasis Stents in common iliac veins for the chronic edema Diabetes mellitus Patient denies DVT (deep venous thrombosis) Right common femoral in 2014 History of nephrolithiasis obstructing req hosp in 2014 Hx of essential hypertension Patient denies Osteoporosis Surgical History Surgical History Hx of hemorrhoidectomy Hx of tonsillectomy Family History Family History Mother Heart disease CHF (congestive heart failure) Father Parkinson disease Social History Social History Social History: Patient lives alone. Lifelong nonsmoker. Rare alcohol use. No drug use. Full code. He does not have an individual who would make medical decisions for him if he is unable. Smoking status: Never smoker Alcohol intake: never Substance use: never Spiritual care concerns: No Meds Home Medications and Allergies Home Medications Medication Instructions Recorded Confirmed Type cyclobenzaprine 10 mg PO TID PRN #30 tablet 08/09/21 09/02/21 Rx cholecalciferol (vitamin D3) 50,000 unit PO MONTHLY 09/02/21 09/02/21 History ferrous sulfate 325 mg PO DAILY 09/02/21 09/02/21 History tamsulosin 0.4 mg PO DAILY 09/02/21 09/02/21 History warfarin 6 mg PO DAILY 09/02/21 09/02/21 History Allergies Allergy/AdvReac Type Severity Reaction Status Date / Time Penicillins Allergy Intermediate Unknown Verified 08/01/21 23:06 Vital Signs Vital Signs - 24 hr 09/01/21 23:56 09/02/21 00:11 09/02/21 00:13 Temperature 37.3 C Pulse Rate 121 H 112 H Respiratory Rate 26 H Blood Pressure 146/81 H Pulse Oximetry 98 99 09/02/21 00:46 09/02/21 00:58 09/02/21 01:31 Temperature Pulse Rate 107 H Respiratory Rate 20 Blood Pressure 127/74
[2021-09-02 20:41] LABS: Glucose Point of Care 118 mg/dl (65-105)
[2021-09-02] MEDS: EUCERIN CREAM 120 GM JAR 1 APPLIC TOPICAL (22:52)
[2021-09-03] VITALS (10 sets, daily range): BP systolic 118–137; BP diastolic 76–93; PULSE 96–126; RESP 16–20; TEMP 35.6–36.8; O2SAT 97–100
[2021-09-03 01:31] LABS: Add Urine Microscopic? YES; Appearance Urine Clear (Clear); Bilirubin Urine Negative (Negative); Blood Urine 2+ (Negative); Color Urine Yellow (Yellow); Glucose Urine UA Negative (Negative); Ketones Urine Negative (Negative); Leukocyte Esterase Ur Negative LEU/UL (Negative); Nitrate Urine Negative (Negative); Protein Urine 1+ mg/dL (Negative); Specific Grav Ur 1.025 (1.001-1.035); Urobilinogen Urine 0.2 mg/dL (<2.0)
[2021-09-03 01:48] LABS: Bacteria Urine Trace /hpf; Mucus Urine Rare /lpf; RBC Urine 51-75 /hpf (0-2)
[2021-09-03 06:04] LABS: Eosinophils Absolute Auto 0.1 K/mm3 (0-0.3); Eosinophils Percent Auto 1.8 % (0-4.4); Hematocrit 24.1 % (42.0-52.0); Hemoglobin 7.4 g/dL (14.0-18.0); Immature Granulocyte Absolute 0.01 K/mm3 (0.00-0.031); Immature Granulocyte Percent A 0.4 % (0-0.5); Lymphocytes Absolute Auto 1.21 K/mm3 (0.9-3.2); Mean Corpuscular HGB Conc 30.7 g/dl (32-36); Mean Corpuscular Hemoglobin 32.7 pg (26-34); Mean Corpuscular Volume 106.6 fl (80-100); Mean Platelet Volume 8.8 fl (7.4-10.4); Monocytes Absolute Auto 0.1 K/mm3 (0.1-0.6); Monocytes Percent Auto 3.3 % (2.6-8.5); Neutrophils Absolute Auto 1.4 K/mm3 (1.3-6.7); Neutrophils Percent Auto 50.5 % (45.5-73.1); Platelet Count Result 157 k/mm3 (150-375); Red Blood Count 2.26 M/mm3 (4.6-6.20); Red Cell Distribution Width 15.9 % (11.5-14.5); White Blood Count 2.8 K/mm3 (4.5-10.0)
[2021-09-03 06:14] LABS: INR 2.2; Prothrombin Time 23.3 Seconds (11.1-14.7)
[2021-09-03 06:16] LABS: Alanine Aminotransferase 18 U/L (6-50); Albumin Level 3.1 g/dL (3.5-5.1); Alkaline Phosphatase 107 U/L (38-126); Anion Gap 4 mmol/L (8-16); Aspartate Amino Transferase 36 U/L (17-59); Bilirubin,Total 0.3 mg/dL (0.2-1.3); Blood Urea Nitrogen 24 mg/dL (9-20); Calcium 7.9 mg/dL (8.4-10.2); Carbon Dioxide 24 mmol/L (22-30); Chloride 109 mmol/L (98-107); Estimated CRCL calculation 55 ml/min; Estimated Glomerular Filt Rate > 60; Glucose 95 mg/dL (65-110); Magnesium 1.6 mg/dL (1.6-2.3); Potassium 3.8 mmol/L (3.4-5.0); Sodium 137 mmol/L (137-145)
[2021-09-03 07:01] LABS: Platelet Estimate Adequate (Adequate); Poikilocytosis 1+ (NORMAL)
--- NOTE | 2021-09-03 08:00 | ECG_ITS ---
Measurements Intervals [place] Rate: 99 P: 60 MA: 154 QRS: 0 QRSD: 93 T: 14 QT: 343 QTc: 442 Interpretive Statements SINUS RHYTHM BORDERLINE T WAVE ABNORMALITY- INFERIOR LEADS BASELINE ARTIFACT- II, III, AVF, V6 BORDERLINE ECG Electronically Signed On 09-03-2021 15:00:50 CDT by Madi Bradley D.O.
[2021-09-03 08:11] LABS: Glucose Point of Care 91 mg/dl (65-105)
[2021-09-03] MEDS: CYANOCOBALAMIN 1,000 MCG TABLET 1000 MCG PO (09:55)
[2021-09-03] MEDS: FOLIC ACID 1 MG TABLET PO (09:55)
[2021-09-03] MEDS: EUCERIN CREAM 120 GM JAR 1 APPLIC TOPICAL (09:56)
[2021-09-03] MEDS: PANTOPRAZOLE 40 MG TABLET PO (09:56)
[2021-09-03] MEDS: TAMSULOSIN HCL 0.4 MG CAPSULE PO (09:56)
[2021-09-03] MEDS: FERROUS SULFATE 324 MG TABLET PO (09:56)
--- NOTE | 2021-09-03 10:21 | PM.IMPN ---
Progress Note: A&P Assessment and Plan (1) Chest pain: Qualifiers: Chest pain type: other chest pain Qualified Code(s): R07.89 - Other chest pain Code(s): R07.9 - Chest pain, unspecified Status: Acute Assessment and Plan: Patient with positional chest pain that is more associated with his rib and vertebral fractures then cardiac. Unclear why Troponin were drawn. EKG reviewed showing no acute findings. Will monitor on tele for now. Check echocardiogram. CTA also showing bibasilar airspace disease and more likely atelectasis given no cough, no SOB (unless he bends over), no fever or elevated WBC. Monitor for now. Add incentive spirometry (2) Elevated troponin: Code(s): R77.8 - Other specified abnormalities of plasma proteins Status: Acute Assessment and Plan: Troponin mildly elevated but flat. Doubt cardiac etiology. This is probably more likely related to the tachycardia on presentation. CTA was negative for PE. Echo unremarkable (3) Vertebral fracture: Qualifiers: Encounter type: initial encounter Fracture of vertebra location: thoracic Thoracic vertebra fracture level: unspecified thoracic vertebra Fracture type: closed Fracture morphology: wedge compression Qualified Code(s): S22.000A - Wedge compression fracture of unspecified thoracic vertebra, initial encounter for closed fracture Status: Acute Assessment and Plan: Last month, patient had a CT of the thoracic and lumbar spine which showed age-indeterminate compression fracture of T6 and T12. There is also some multiple age-indeterminate fracture of the lumbar spine with L4 being a burst fracture. CTA of the chest this admission shows new burst fracture in T11, stable burst fracture in T12 and stable compression fracture T6. Suspect pathological fx's (4) Rib fracture: Qualifiers: Encounter type: sequela Rib fracture type: multiple ribs Fracture type: closed Laterality: left Qualified Code(s): S22.42XS - Multiple fractures of ribs, left side, sequela Code(s): S22.39XA - Fracture of one rib, unspecified side, initial encounter for closed fracture Status: Acute Assessment and Plan: CTA shows multiple left-sided rib fractures that appear to be acute and chronic with some healing. He denies any overt trauma. He may have severe osteoporosis resulting in acute fractures with minimal exertion. Continue supportive care. (5) Hyperproteinemia: Code(s): E88.09 - Other disorders of plasma-protein metabolism, not elsewhere classified Status: Acute Assessment and Plan: Protein level is 10 with a low albumin. Concerning for either elevated immunoglobulins or elevated paraprotein. Immunofixation and electrophoresis ordered. Also check rheumatoid factor. (6) Leukopenia: Qualifiers: Leukopenia type: unspecified Qualified Code(s): D72.819 - Decreased white blood cell count, unspecified Code(s): D72.819 - Decreased white blood cell count, unspecified Status: Acute Assessment and Plan: Patient with leukopenia with normal differential. B12 unremarkable. Bone marrow Bx pending (7) Macrocytic anemia: Code(s): D53.9 - Nutritional anemia, unspecified Status: Acute Assessment and Plan: Hemoglobin 7.2 on admission. 09/03 7.4 Await bone marrow bx. (8) Diabetes mellitus: Qualifiers: Diabetes mellitus type: type 2 Diabetes mellitus scrubber operator insulin use: without scrubber operator use Diabetes mellitus complication status: without complication Qualified Code(s): E11.9 - Type 2 diabetes mellitus without complications Code(s): E11.9 - Type 2 diabetes mellitus without complications Status: Acute Assessment and Plan: A1c 5.7, c/w IGT vs DM2 that has improved with his recent weight loss. D/c bedside glucose monitoring. (9) DVT (deep venous thrombosis): Qualifiers:
--- NOTE | 2021-09-03 16:31 | PC.NURSE ---
This patient, Tommy Antony, was transferred to [[id number] ] on 09/03/21 at 1631. Personal belongings sent with patient. Report given to [ Shameka ALXE]. Appropriate documentation sent with patient.
--- NOTE | 2021-09-03 16:37 | PC.NURSE ---
Patient received from IMU room 202 to room 259. Patient oriented to the room.
[2021-09-03 16:59] LABS: Glucose Point of Care 131 mg/dl (65-105)
[2021-09-03 17:00] LABS: Glucose Point of Care 93 mg/dl (65-105)
--- NOTE | 2021-09-03 23:23 | ECG_ITS ---
Measurements Intervals [place] Rate: 98 P: 23 MI: 144 QRS: -10 QRSD: 92 T: 3 QT: 336 QTc: 431 Interpretive Statements SINUS RHYTHM DELAYED PRECORDIAL R/S TRANSITION VOLTAGE CRITERIA FOR LVH BORDERLINE T WAVE ABNORMALITY- INFERIOR LEADS BASELINE ARTIFACT- I, II, III, AVR, AVL, AVF, V4-V6 BORDERLINE ECG Electronically Signed On 09-04-2021 7:44:43 CDT by Madi Bradley D.O.
[2021-09-04 04:32] VITALS: BP 130/84; PULSE 94; RESP 18; TEMP 36; O2SAT 97
[2021-09-04 06:46] LABS: INR 1.5; Prothrombin Time 17.6 Seconds (11.1-14.7)
[2021-09-04] MEDS: PANTOPRAZOLE 40 MG TABLET PO (08:35)
[2021-09-04] MEDS: CYANOCOBALAMIN 1,000 MCG TABLET 1000 MCG PO (08:35)
[2021-09-04] MEDS: TAMSULOSIN HCL 0.4 MG CAPSULE PO (08:36)
[2021-09-04] MEDS: FOLIC ACID 1 MG TABLET PO (08:36)
[2021-09-04] MEDS: FERROUS SULFATE 324 MG TABLET PO (09:08)
[2021-09-04] MEDS: DOCUSATE SODIUM 100 MG CAPSULE PO ×2 (09:08→20:03)
--- NOTE | 2021-09-04 10:49 | PM.IMPN ---
Progress Note: A&P Assessment and Plan (1) Chest pain: Qualifiers: Chest pain type: other chest pain Qualified Code(s): R07.89 - Other chest pain Code(s): R07.9 - Chest pain, unspecified Status: Acute Assessment and Plan: Patient with positional chest pain that is more associated with his rib and vertebral fractures then cardiac. Unclear why Troponin were drawn. EKG reviewed showing no acute findings. Will monitor on tele for now. Check echocardiogram. CTA also showing bibasilar airspace disease and more likely atelectasis given no cough, no SOB (unless he bends over), no fever or elevated WBC. Monitor for now. Added incentive spirometry (2) Elevated troponin: Code(s): R77.8 - Other specified abnormalities of plasma proteins Status: Acute Assessment and Plan: Troponin mildly elevated but flat. Doubt cardiac etiology. This is probably more likely related to the tachycardia on presentation. CTA was negative for PE. Echo unremarkable (3) Vertebral fracture: Qualifiers: Encounter type: initial encounter Fracture of vertebra location: thoracic Thoracic vertebra fracture level: unspecified thoracic vertebra Fracture type: closed Fracture morphology: wedge compression Qualified Code(s): S22.000A - Wedge compression fracture of unspecified thoracic vertebra, initial encounter for closed fracture Status: Acute Assessment and Plan: Last month, patient had a CT of the thoracic and lumbar spine which showed age-indeterminate compression fracture of T6 and T12. There is also some multiple age-indeterminate fracture of the lumbar spine with L4 being a burst fracture. CTA of the chest this admission shows new burst fracture in T11, stable burst fracture in T12 and stable compression fracture T6. Suspect pathological fx's (4) Rib fracture: Qualifiers: Encounter type: sequela Rib fracture type: multiple ribs Fracture type: closed Laterality: left Qualified Code(s): S22.42XS - Multiple fractures of ribs, left side, sequela Code(s): S22.39XA - Fracture of one rib, unspecified side, initial encounter for closed fracture Status: Acute Assessment and Plan: CTA shows multiple left-sided rib fractures that appear to be acute and chronic with some healing. He denies any overt trauma. He may have severe osteoporosis resulting in acute fractures with minimal exertion. Continue supportive care. (5) Hyperproteinemia: Code(s): E88.09 - Other disorders of plasma-protein metabolism, not elsewhere classified Status: Acute Assessment and Plan: Protein level is 10 with a low albumin. Concerning for either elevated immunoglobulins or elevated paraprotein. Immunofixation and electrophoresis ordered. Also checked rheumatoid factor. (6) Leukopenia: Qualifiers: Leukopenia type: unspecified Qualified Code(s): D72.819 - Decreased white blood cell count, unspecified Code(s): D72.819 - Decreased white blood cell count, unspecified Status: Acute Assessment and Plan: Patient with leukopenia with normal differential. B12 unremarkable. Bone marrow Bx pending (7) Macrocytic anemia: Code(s): D53.9 - Nutritional anemia, unspecified Status: Acute Assessment and Plan: Hemoglobin 7.2 on admission. 09/03 7.4 Await bone marrow bx. (8) Diabetes mellitus: Qualifiers: Diabetes mellitus type: type 2 Diabetes mellitus senior care insulin use: without pressure sealer and tester use Diabetes mellitus complication status: without complication Qualified Code(s): E11.9 - Type 2 diabetes mellitus without complications Code(s): E11.9 - Type 2 diabetes mellitus without complications Status: Acute Assessment and Plan: A1c 5.7, c/w IGT vs DM2 that has improved with his recent weight loss. D/c bedside glucose monitoring. (9) DVT (deep venous thrombosis): Qualifi
[2021-09-04 11:26] LABS: IFOB Positive Control Positive; Immunochemical Fecal Occult Bl Negative (N)
[2021-09-04 12:00] VITALS: BP 132/78; PULSE 98; RESP 18; TEMP 36.6; O2SAT 99
[2021-09-04 14:00] VITALS: BP 128/82; PULSE 92; RESP 16; TEMP 36.3; O2SAT 98
[2021-09-04 19:48] VITALS: BP 112/67; PULSE 100; RESP 18; TEMP 36; O2SAT 100
[2021-09-04 20:00] VITALS: PULSE 100; RESP 18; O2SAT 100
[2021-09-04 21:19] LABS: Glucose Point of Care 92 mg/dl (65-105)
[2021-09-04] MEDS: TRIAMCINOLONE ACET 0.1% OINT 15 GM TUBE 1 APPLIC TOPICAL (21:26)
[2021-09-05 03:38] VITALS: BP 126/71; PULSE 84; RESP 17; TEMP 36.4; O2SAT 97
[2021-09-05 05:40] LABS: Hematocrit 23.2 % (42.0-52.0); Hemoglobin 7.2 g/dL (14.0-18.0); Mean Corpuscular Hemoglobin 32.6 pg (26-34); Mean Platelet Volume 8.4 fl (7.4-10.4); Platelet Count Result 148 k/mm3 (150-375); Red Blood Count 2.21 M/mm3 (4.6-6.20); Red Cell Distribution Width 15.6 % (11.5-14.5); White Blood Count 2.5 K/mm3 (4.5-10.0)
[2021-09-05 05:49] LABS: INR 1.3; Prothrombin Time 15.8 Seconds (11.1-14.7)
[2021-09-05 06:12] LABS: Sodium 132 mmol/L (137-145)
[2021-09-05 06:16] LABS: Anion Gap 0 mmol/L (8-16); Blood Urea Nitrogen 25 mg/dL (9-20); Calcium 7.9 mg/dL (8.4-10.2); Carbon Dioxide 29 mmol/L (22-30); Chloride 103 mmol/L (98-107); Estimated CRCL calculation 55 ml/min; Estimated Glomerular Filt Rate > 60; Glucose 95 mg/dL (65-110); Potassium 3.9 mmol/L (3.4-5.0)
[2021-09-05] MEDS: DOCUSATE SODIUM 100 MG CAPSULE PO ×2 (08:39→21:05)
[2021-09-05] MEDS: PANTOPRAZOLE 40 MG TABLET PO (08:40)
[2021-09-05] MEDS: CYANOCOBALAMIN 1,000 MCG TABLET 1000 MCG PO (08:40)
[2021-09-05] MEDS: FOLIC ACID 1 MG TABLET PO (08:40)
[2021-09-05] MEDS: FERROUS SULFATE 324 MG TABLET PO (08:40)
[2021-09-05] MEDS: TAMSULOSIN HCL 0.4 MG CAPSULE PO (08:40)
--- NOTE | 2021-09-05 10:53 | PCPTNOTE ---
Patient refused treatment this session. Patient reported he has something to take care of with nursing at the moment.
--- NOTE | 2021-09-05 11:20 | PCOTNOTE ---
Attempted to see patient this am, however patient off floor for testing/procedure.
--- NOTE | 2021-09-05 11:53 | WPDMODSED ---
Moderate Sedation Note-Pt Data Patient Data Allergies Allergy/AdvReac Type Severity Reaction Status Date / Time Penicillins Allergy Intermediate Unknown Verified 08/01/21 23:06 Home Medications Medication Instructions Recorded Confirmed Type cyclobenzaprine 10 mg PO TID PRN #30 tablet 08/09/21 09/02/21 Rx cholecalciferol (vitamin D3) 50,000 unit PO MONTHLY 09/02/21 09/02/21 History ferrous sulfate 325 mg PO DAILY 09/02/21 09/02/21 History tamsulosin 0.4 mg PO DAILY 09/02/21 09/02/21 History warfarin 6 mg PO DAILY 09/02/21 09/02/21 History Current Medications: Active Medications Cyanocobalamin (Cyanocobalamin 1,000 Mcg Tablet) 1,000 mcg PO QAM [facility] Last Admin: 09/05/21 08:40 Dose: 1,000 mcg Documented by: Dextrose (Dextrose 50% 25 Gm/50 Ml Syringe) 12.5 gm IV PUSH PRN PRN; Protocol PRN Reason: Hypoglycemia Docusate Sodium (Docusate Sodium 100 Mg Capsule) 100 mg PO Q12HR [facility] Last Admin: 09/05/21 08:39 Dose: 100 mg Documented by: Ferrous Sulfate (Ferrous Sulfate 324 Mg Tablet) 324 mg PO DAILY@0800 [facility] Last Admin: 09/05/21 08:40 Dose: 324 mg Documented by: Folic Acid (Folic Acid 1 Mg Tablet) 1 mg PO DAILY [facility] Last Admin: 09/05/21 08:40 Dose: 1 mg Documented by: Glucagon (Glucagon For Inj 1 Mg Vial) 1 mg IM PRN PRN; Protocol PRN Reason: Hypoglycemia Glucose (Glucose Oral Gel 15 Gm Of Glucse In 37.5 Gm Tube) 15 gm PO PRN PRN; Protocol PRN Reason: Hypoglycemia Dextrose (Dextrose 5% 1,000 Ml) 1,000 mls @ 100 mls/hr IVPB PRN PRN; Protocol PRN Reason: Hypoglycemia Neomycin/Polymyxin/Bacitracin (Neomycin/Polymyxin/Bacitracin Ointment 15 Gm Tube) 1 applic TOPICAL PRN PRN PRN Reason: with dressing changes Pantoprazole Sodium (Pantoprazole 40 Mg Tablet) 40 mg PO QAM [facility] Last Admin: 09/05/21 08:40 Dose: 40 mg Documented by: Perflutren Lipid Microsphere (Perflutren Lipid Microspheres 1.5 Ml Vial Diluted To 10 Ml Total Volume) 0 ml IV PUSH ONCE PRN; Protocol PRN Reason: adequate visualization Senna (Sennosides 8.8 Mg/5 Ml Syrup) 8.8 mg PO BID PRN PRN Reason: Constipation Tamsulosin HCl (Tamsulosin Hcl 0.4 Mg Capsule) 0.4 mg PO DAILY [facility] Last Admin: 09/05/21 08:40 Dose: 0.4 mg Documented by: Triamcinolone Acetonide (Triamcinolone Acet 0.1% Oint 15 Gm Tube) 1 applic TOPICAL Q12HR PRN PRN Reason: Dry Skin Last Admin: 09/04/21 21:26 Dose: 1 applic Documented by: Sedation/Anesthesia: No previous sedation/anesthesia problems (including family history). [facility] Past Medical History Medical History BPH (benign prostatic hyperplasia) Chronic venous stasis Stents in common iliac veins for the chronic edema Diabetes mellitus Patient denies DVT (deep venous thrombosis) Right common femoral in 2014 History of nephrolithiasis obstructing req hosp in 2014 Hx of essential hypertension Patient denies Osteoporosis Surgical History Surgical History Hx of hemorrhoidectomy Hx of tonsillectomy Family History Family History Mother Heart disease CHF (congestive heart failure) Father Parkinson disease Social History Social History Social History: Patient lives alone. Lifelong nonsmoker. Rare alcohol use. No drug use. Full code. He does not have an individual who would make medical decisions for him if he is unable. Smoking status: Never smoker Alcohol intake: never Substance use: never Spiritual care concerns: No Mod Sed Physical Exam Physical Exam Pre Procedural Exam: Normal: Appearance, Throat, Lungs, Heart Rate, Heart Rhythm and Extremities Hours since solid foods: 12 Hours since liquid intake: 12 Mallampati Classification: class III Internal Medicine - PN: Obj Da Vital Signs Vital Signs: Vital Signs - 24 hr 09/04/21 12:00 09/04/21 14:00 09/04/21 19:48
--- NOTE | 2021-09-05 12:28 | PM.IMPN ---
Progress Note: A&P Assessment and Plan (1) Chest pain: Qualifiers: Chest pain type: other chest pain Qualified Code(s): R07.89 - Other chest pain Code(s): R07.9 - Chest pain, unspecified Status: Acute Assessment and Plan: Patient with positional chest pain that is more associated with his rib and vertebral fractures then cardiac. Unclear why Troponin were drawn. EKG reviewed showing no acute findings. Echocardiogram showed EF of 60 65% and grade 1 diastolic dysfunction. CTA also showing bibasilar airspace disease and more likely atelectasis given no cough, no SOB (unless he bends over), no fever or elevated WBC. Continue to monitor. Encourage incentive spirometry use. (2) Elevated troponin: Code(s): R77.8 - Other specified abnormalities of plasma proteins Status: Acute Assessment and Plan: Troponin mildly elevated but flat. Doubt cardiac etiology. This is probably more likely related to the tachycardia on presentation. CTA was negative for PE. Echo unremarkable. (3) Vertebral fracture: Qualifiers: Encounter type: initial encounter Fracture morphology: wedge compression Fracture of vertebra location: thoracic Fracture type: closed Thoracic vertebra fracture level: unspecified thoracic vertebra Qualified Code(s): S22.000A - Wedge compression fracture of unspecified thoracic vertebra, initial encounter for closed fracture Status: Acute Assessment and Plan: Last year bone density showing osteoporosis and osteopenia. Last month, patient had a CT of the thoracic and lumbar spine which showed age-indeterminate compression fracture of T6 and T12. There is also some multiple age-indeterminate fracture of the lumbar spine with L4 being a burst fracture. CTA of the chest this admission shows new burst fracture in T11, stable burst fracture in T12 and stable compression fracture T6. Suspect pathological fx's. Appreciate ortho input. Bone bx performed today. Thoracic brace being considered. (4) Rib fracture: Qualifiers: Encounter type: sequela Fracture type: closed Laterality: left Rib fracture type: multiple ribs Qualified Code(s): S22.42XS - Multiple fractures of ribs, left side, sequela Code(s): S22.39XA - Fracture of one rib, unspecified side, initial encounter for closed fracture Status: Acute Assessment and Plan: CTA shows multiple left-sided rib fractures that appear to be acute and chronic with some healing. He denies any overt trauma. He may have severe osteoporosis resulting in acute fractures with minimal exertion. Consider also pathologic fractures. Continue supportive care. (5) Hyperproteinemia: Code(s): E88.09 - Other disorders of plasma-protein metabolism, not elsewhere classified Status: Acute Assessment and Plan: Protein level is 10 with a low albumin. Skeletal survey showing widespread lucency. IgG 6220 with undetectable IgA and IgM. Concerning for either elevated immunoglobulins or elevated paraprotein. Rheumatoid factor negative. Immunofixation and electrophoresis ordered. Concern for multiple myeloma. Bone bx performed today. (6) Leukopenia: Qualifiers: Leukopenia type: unspecified Qualified Code(s): D72.819 - Decreased white blood cell count, unspecified Code(s): D72.819 - Decreased white blood cell count, unspecified Status: Acute Assessment and Plan: Patient with leukopenia with normal differential. B12 low end of normal. Check MMA. Bone marrow Bx performed with path pending. B12 orally started. (7) Macrocytic anemia: Code(s): D53.9 - Nutritional anemia, unspecified Status: Acute Assessment and Plan: Hemoglobin 7.2 on admission. 09/03 7.4 and 09/05 7.2. Low but stable. Await bone marrow bx results. (8) Diabetes mellitus: Qualifiers: Diabetes mellitus complication status: without complication Diabet
--- NOTE | 2021-09-05 13:05 | P.PNONC_ITS ---
Progress Note: A/P - Additional Plan Likely multiple myeloma. Patient scan prior from the bone marrow aspiration and biopsy. Previous CT chest showed T11 burst fracture. A skeletal survey say multiple compression and burst fracture in the thoracic and lumbar spine along with widespread increased lucency of the bone consistent with marked osteopenia with no definitive lytic lesions but there was the suggestion of couple of poten tial lytic lesion of the CT images at T1 and left innominate bone. Quantitative immunoglobulin showed IgG level of 6220. Serum protein electrophoresis and immunofixation findings are pending. Patient was given my office information for follow-up. - Time Spent With Patient Total time spent is greater than 50% in coordination of care (as documented) at patient's floor/unit and/or counseling patient: 15 - 25 minutes Subjective Interval history: Likely multiple myeloma Review of Systems - Review of Systems Patient just came back from the bone marrow biopsy. He denies any chest pain and shortness of breath. He has some back pain. No other new complaints. Exam Vital signs: Temp Pulse Resp BP Pulse Ox 36.4 C 84 17 126/71 97 09/05/21 03:38 09/05/21 03:38 09/05/21 03:38 09/05/21 03:38 09/05/21 03:38 Narrative: Lungs are clear to auscultation bilaterally Cardiovascular regular rate rhythm no murmurs Abdomen soft nontender nondistended bowel sounds are positive Extremities no edema PN: Objective Data - Labs CBC & Chem 7: 09/05/21 05:26 09/05/21 05:26 Labs: Laboratory Results - last 24 hr 09/04/21 09/05/21 09/05/21 20:05 05:26 05:26 WBC 2.5 L RBC 2.21 L Hgb 7.2 L Hct 23.2 L MCV 105.0 H MCH 32.6 MCHC 31.0 L RDW 15.6 H Plt Count 148 L MPV 8.4 PT 15.8 H INR 1.3 Sodium Potassium Chloride Carbon Dioxide Anion Gap BUN Creatinine Estim Creat Clear Calc Estimated GFR Glucose POC Capillary Glucose 92 Calcium 09/05/21 05:26 WBC RBC Hgb Hct MCV MCH MCHC RDW Plt Count MPV PT INR Sodium 132 L Potassium 3.9 Chloride 103 Carbon Dioxide 29 Anion Gap 0 L BUN 25 H Creatinine 0.90 Estim Creat Clear Calc 55 Estimated GFR > 60 Glucose 95 POC Capillary Glucose Calcium 7.9 L
[2021-09-05 13:52] VITALS: BP 119/77; PULSE 88; RESP 16; TEMP 36.2; O2SAT 96
[2021-09-05] MEDS: ACETAMINOPHEN 325 MG TABLET 650 MG PO (16:36)
[2021-09-05] MEDS: WARFARIN (*PBKC) 3 MG TABLET 6 MG PO (16:36)
--- NOTE | 2021-09-05 17:25 | PC.NURSE ---
Patient states that tylenol does nothing for his pain and he wants 800mg Ibuprofen TID, called Dr Dumont of patients request. gave order for 1x 400mg ibuprofen.
--- NOTE | 2021-09-05 17:30 | PC.NURSE ---
Ibuprofen has a severe interaction with Warfarin, new order for norco 5-325 Q^ PRN for pain 6-[address] Dumont.
--- NOTE | 2021-09-05 17:41 | PC.NURSE ---
Patient refuses the norco 5-325 states doesn't want narcotics, explained to him that warfarin and ibuprofen together can lead to excessive bleeding and therefore can not give.
[2021-09-05 19:36] VITALS: BP 127/65; PULSE 92; RESP 17; TEMP 36.2; O2SAT 92
[2021-09-05 20:00] VITALS: O2SAT 92
[2021-09-06 03:52] VITALS: BP 123/84; PULSE 82; RESP 16; TEMP 36.2; O2SAT 94
[2021-09-06 05:24] LABS: Eosinophils Absolute Auto 0.1 K/mm3 (0-0.3); Eosinophils Percent Auto 1.7 % (0-4.4); Hematocrit 23.7 % (42.0-52.0); Hemoglobin 7.4 g/dL (14.0-18.0); Immature Granulocyte Absolute 0.01 K/mm3 (0.00-0.031); Immature Granulocyte Percent A 0.3 % (0-0.5); Lymphocytes Absolute Auto 1.12 K/mm3 (0.9-3.2); Mean Corpuscular HGB Conc 31.2 g/dl (32-36); Mean Corpuscular Hemoglobin 32.9 pg (26-34); Mean Corpuscular Volume 105.3 fl (80-100); Mean Platelet Volume 8.6 fl (7.4-10.4); Monocytes Absolute Auto 0.1 K/mm3 (0.1-0.6); Monocytes Percent Auto 3.5 % (2.6-8.5); Neutrophils Absolute Auto 1.6 K/mm3 (1.3-6.7); Neutrophils Percent Auto 55.5 % (45.5-73.1); Platelet Count Result 153 k/mm3 (150-375); Red Blood Count 2.25 M/mm3 (4.6-6.20); Red Cell Distribution Width 15.4 % (11.5-14.5); White Blood Count 2.9 K/mm3 (4.5-10.0)
[2021-09-06 05:31] LABS: INR 1.3; Prothrombin Time 15.4 Seconds (11.1-14.7)
[2021-09-06 05:36] LABS: Anion Gap 2 mmol/L (8-16); Blood Urea Nitrogen 27 mg/dL (9-20); Calcium 7.9 mg/dL (8.4-10.2); Carbon Dioxide 30 mmol/L (22-30); Chloride 101 mmol/L (98-107); Estimated CRCL calculation 49 ml/min; Estimated Glomerular Filt Rate > 60; Glucose 91 mg/dL (65-110); Magnesium 1.6 mg/dL (1.6-2.3); Sodium 133 mmol/L (137-145)
[2021-09-06] MEDS: CYANOCOBALAMIN 1,000 MCG TABLET 1000 MCG PO (08:53)
[2021-09-06] MEDS: FERROUS SULFATE 324 MG TABLET PO (08:53)
[2021-09-06] MEDS: PANTOPRAZOLE 40 MG TABLET PO (08:53)
[2021-09-06] MEDS: DOCUSATE SODIUM 100 MG CAPSULE PO ×2 (08:53→21:41)
[2021-09-06] MEDS: FOLIC ACID 1 MG TABLET PO (08:53)
[2021-09-06] MEDS: TAMSULOSIN HCL 0.4 MG CAPSULE PO (09:41)
[2021-09-06 13:40] LABS: Abnormal Protein Band 1 4.7 g/dL; Albumin 3.6 g/dL (3.8-4.8); Alpha 1 Globulin 0.4 g/dL (0.2-0.3); Alpha 2 Globulin 0.9 g/dL (0.5-0.9); Beta 1 Globulin 0.4 g/dL (0.4-0.6); Protein, Total 10.4 g/dL (6.1-8.1)
--- NOTE | 2021-09-06 13:55 | PM.IMPN ---
Progress Note: A&P Assessment and Plan (1) Chest pain: Qualifiers: Chest pain type: other chest pain Qualified Code(s): R07.89 - Other chest pain Code(s): R07.9 - Chest pain, unspecified Status: Acute Assessment and Plan: Patient with positional chest pain that is more associated with his rib and vertebral fractures then cardiac. Unclear why Troponin were drawn. EKG reviewed showing no acute findings. Echocardiogram showed EF of 60 65% and grade 1 diastolic dysfunction. CTA also showing bibasilar airspace disease and more likely atelectasis given no cough, no SOB (unless he bends over), no fever or elevated WBC. Encouraged incentive spirometry use. (2) Elevated troponin: Code(s): R77.8 - Other specified abnormalities of plasma proteins Status: Acute Assessment and Plan: Troponin mildly elevated but flat. Doubt cardiac etiology. This is more likely related to the tachycardia on presentation. CTA was negative for PE. Echo unremarkable. (3) Vertebral fracture: Qualifiers: Encounter type: initial encounter Fracture morphology: wedge compression Fracture of vertebra location: thoracic Fracture type: closed Thoracic vertebra fracture level: unspecified thoracic vertebra Qualified Code(s): S22.000A - Wedge compression fracture of unspecified thoracic vertebra, initial encounter for closed fracture Status: Acute Assessment and Plan: Last year bone density showing osteoporosis and osteopenia. Last month, patient had a CT of the thoracic and lumbar spine which showed age-indeterminate compression fracture of T6 and T12. There is also some multiple age-indeterminate fracture of the lumbar spine with L4 being a burst fracture. CTA of the chest this admission shows new burst fracture in T11, stable burst fracture in T12 and stable compression fracture T6. Suspect pathological fx's. Appreciate ortho input. Bone bx performed yesterday. Thoracic brace being considered. Clarify with ortho if this is necessary. (4) Rib fracture: Qualifiers: Encounter type: sequela Fracture type: closed Laterality: left Rib fracture type: multiple ribs Qualified Code(s): S22.42XS - Multiple fractures of ribs, left side, sequela Code(s): S22.39XA - Fracture of one rib, unspecified side, initial encounter for closed fracture Status: Acute Assessment and Plan: CTA shows multiple left-sided rib fractures that appear to be acute and chronic with some healing. He denies any overt trauma. He may have severe osteoporosis resulting in acute fractures with minimal exertion. Consider also pathologic fractures. Continue supportive care. (5) Hyperproteinemia: Code(s): E88.09 - Other disorders of plasma-protein metabolism, not elsewhere classified Status: Acute Assessment and Plan: Protein level is 10 with a low albumin. Skeletal survey showing widespread lucency. IgG 6220 with undetectable IgA and IgM. Concerning for either elevated immunoglobulins or elevated paraprotein. Rheumatoid factor negative. Concern for multiple myeloma. Bone bx results pending. SPEP showing M-spike. SIF pending. (6) Leukopenia: Qualifiers: Leukopenia type: unspecified Qualified Code(s): D72.819 - Decreased white blood cell count, unspecified Code(s): D72.819 - Decreased white blood cell count, unspecified Status: Acute Assessment and Plan: Patient with leukopenia with normal differential. B12 low end of normal. Check MMA. Bone Marrow Bx performed with path pending. B12 orally started. (7) Macrocytic anemia: Code(s): D53.9 - Nutritional anemia, unspecified Status: Acute Assessment and Plan: Hemoglobin 7.2 on admission. Low but stable. Await bone marrow bx results. (8) Diabetes mellitus: Qualifiers: Diabetes mellitus complication status: without complication Diabetes mellitus long te
[2021-09-06 14:00] VITALS: BP 124/82; PULSE 80; RESP 16; TEMP 36.4; O2SAT 94
[2021-09-06] MEDS: MAGNESIUM HYDROXIDE SUSP 30 ML UDC PO (14:56)
[2021-09-06] MEDS: WARFARIN (*PBKC) 3 MG TABLET 6 MG PO (16:22)
[2021-09-06 20:11] VITALS: BP 135/80; PULSE 107; RESP 18; TEMP 37; O2SAT 97
[2021-09-06 20:15] VITALS: PULSE 107; RESP 18; O2SAT 97
[2021-09-06 20:50] VITALS: O2SAT 94
[2021-09-07 05:16] VITALS: BP 130/70; PULSE 92; RESP 18; TEMP 36.4; O2SAT 98
--- NOTE | 2021-09-07 05:24 | PC.NURSE ---
Pt states that he had a large BM during night& refuses soap suds enema.
[2021-09-07 05:56] LABS: INR 1.3; Prothrombin Time 15.6 Seconds (11.1-14.7)
[2021-09-07] MEDS: FERROUS SULFATE 324 MG TABLET PO (08:19)
[2021-09-07] MEDS: CYANOCOBALAMIN 1,000 MCG TABLET 1000 MCG PO (08:19)
[2021-09-07] MEDS: PANTOPRAZOLE 40 MG TABLET PO (08:19)
[2021-09-07] MEDS: TAMSULOSIN HCL 0.4 MG CAPSULE PO (08:19)
[2021-09-07] MEDS: FOLIC ACID 1 MG TABLET PO (08:19)
[2021-09-07] MEDS: DOCUSATE SODIUM 100 MG CAPSULE PO (08:19)
--- NOTE | 2021-09-07 13:19 | PM.DS ---
DS: Admitting Diagnosis Discharge Date 09/07/21 Admitting Diagnosis Chest pain DS: Discharge Diagnosis Discharge Diagnosis (1) Chest pain: Qualifiers: Chest pain type: other chest pain Qualified Code(s): R07.89 - Other chest pain Code(s): R07.9 - Chest pain, unspecified Status: Acute Assessment and Plan: Patient with positional chest pain that is felt related to his rib and vertebral fractures then cardiac. Unclear why Troponin were drawn. EKG reviewed showing no acute findings. Echocardiogram showed EF of 60 65% and grade 1 diastolic dysfunction. CTA Chest showing bibasilar airspace disease and more likely atelectasis given no cough, no SOB (unless he bends over), no fever or elevated WBC. We encouraged incentive spirometry use. (2) Elevated troponin: Code(s): R77.8 - Other specified abnormalities of plasma proteins Status: Acute Assessment and Plan: Troponin mildly elevated but flat. Doubt cardiac etiology. This is more likely related to the tachycardia on presentation. CTA was negative for PE. Echo unremarkable. (3) Vertebral fracture: Qualifiers: Encounter type: initial encounter Fracture morphology: wedge compression Fracture of vertebra location: thoracic Fracture type: closed Thoracic vertebra fracture level: unspecified thoracic vertebra Qualified Code(s): S22.000A - Wedge compression fracture of unspecified thoracic vertebra, initial encounter for closed fracture Status: Acute Assessment and Plan: Last year bone density showing osteoporosis and osteopenia. Last month, patient had a CT of the thoracic and lumbar spine which showed age-indeterminate compression fracture of T6 and T12. There is also some multiple age-indeterminate fracture of the lumbar spine with L4 being a burst fracture. CTA of the chest this admission shows new burst fracture in T11, stable burst fracture in T12 and stable compression fracture T6. Suspect pathological fx's from multiple myeloma. Appreciate ortho input. Bone bx performed and results pending. Spoke with Ortho about Thoracic brace but they felt this would have minimal benefit. (4) Rib fracture: Qualifiers: Encounter type: sequela Fracture type: closed Laterality: left Rib fracture type: multiple ribs Qualified Code(s): S22.42XS - Multiple fractures of ribs, left side, sequela Code(s): S22.39XA - Fracture of one rib, unspecified side, initial encounter for closed fracture Status: Acute Assessment and Plan: CTA shows multiple left-sided rib fractures that appear to be acute and chronic with some healing. He denies any overt trauma. He may have severe osteoporosis resulting in acute fractures with minimal exertion. Consider also pathologic fractures. He worked with PT/OT and was ambulating well with therapy. Encouraged him to use the walker. (5) Hyperproteinemia: Code(s): E88.09 - Other disorders of plasma-protein metabolism, not elsewhere classified Status: Acute Assessment and Plan: Protein level is 10 with a low albumin. Skeletal survey showing widespread lucency. IgG 6220 with undetectable IgA and IgM. Concerning for either elevated immunoglobulins or elevated paraprotein. Rheumatoid factor negative. Concern for multiple myeloma. Bone bx results pending. SPEP showing M-spike. SIF pending. Pateint will follow up with Dr Godoy after discharge. An appointment was made. (6) Leukopenia: Qualifiers: Leukopenia type: unspecified Qualified Code(s): D72.819 - Decreased white blood cell count, unspecified Code(s): D72.819 - Decreased white blood cell count, unspecified Status: Acute Assessment and Plan: Patient with leukopenia with normal differential. B12 low end of normal. MMA level pending. Bone Marrow Bx performed with path pending. B12 orally started. (7) Macrocytic anemia: Code(s): D53.9 - Nutri
[2021-09-07 14:08] VITALS: BP 131/62; PULSE 117; RESP 16; TEMP 36.6; O2SAT 100
[2021-09-07] MEDS: RIVAROXABAN 10 MG TABLET PO (16:40)
[2021-09-08 13:27] LABS: Methylmalonic Acid 98 nmol/L (87-318)
[2021-09-11 05:48] LABS: Abnormal Protein Band 1 47 mg/dL; Total Protein/Creatinine Ratio 1049 mg/g creat (22-128)
[2021-09-12 12:13] LABS: Creatinine, Random Urine 102
--- NOTE | 2021-09-16 07:18 | PC.NURSE ---
SIF, UIF, MMA, UPEP results faxed to Dr. Godoy. Dr. Dumont aware of lab results.
== END 2021-09-07 18:54 | disposition home or self-care (01) | DRG 347 ==
LOC: ANHED 09-02 05:03 → ANHIMU 09-02 05:51 → ANH2MED 09-03 16:18
PROVIDERS: Internal Medicine; Radiology Diagnostic Radiology; Admitting Provider Internal Medicine; Emergency Provider Emergency Medicine; PCP Emergency Medicine; Referring Provider Internal Medicine Hematology & Oncology; Visit Provider Internal Medicine
PROC: 079T3ZX Drainage of Bone Marrow, Percutaneous Approach, Diagnostic (ICD-10-PCS; principal; 2021-09-05 11:30)
DX: S22.000A Wedge compression fracture of unspecified thoracic vertebra, initial encounter for closed fracture (principal); R07.9 Chest pain, unspecified; Z20.822 Contact with and (suspected) exposure to COVID-19; E88.09 Other disorders of plasma-protein metabolism, not elsewhere classified; D72.819 Decreased white blood cell count, unspecified; D53.9 Nutritional anemia, unspecified; E11.9 Type 2 diabetes mellitus without complications; M81.0 Age-related osteoporosis without current pathological fracture; S22.42XA Multiple fractures of ribs, left side, initial encounter for closed fracture; I82.509 Chronic embolism and thrombosis of unspecified deep veins of unspecified lower extremity; D61.818 Other pancytopenia; N40.0 Benign prostatic hyperplasia without lower urinary tract symptoms; I10 Essential (primary) hypertension; Z82.49 Family history of ischemic heart disease and other diseases of the circulatory system; Z79.01 Long term (current) use of anticoagulants; R00.0 Tachycardia, unspecified
CPT/HCPCS: 36415; 38222; 71045; 71275; 77075; 80048; 80053; 81001; 82274; 82306; 82570; 82607; 82728; 82746; 82784; 82948; 83036; 83540; 83550; 83735; 83880; 83921; 84100; 84155; 84156; 84165; 84166; 84443; 84484; 85025; 85027; 85046; 85610; 85730; 86334; 86335; 86430; 87086; 87088; 87106; 88184; 88185; 88305; 88311; 88313; 88341; 88342; 88360; 93005; 93306; 94640; 97110; 97116; 97161; 97165; 97530; 97535; 99285; A9270; C9803; G0378; G0379; J1642; J2250; J3010; Q9967; U0003; U0005

== ENCOUNTER 2021-09-29 13:58 | Emergency (ER) | payer OTHER, SELFPAY ==
[2021-09-29 14:42] VITALS: BP 120/67; PULSE 118; RESP 18; TEMP 36.9; O2SAT 99
--- NOTE | 2021-09-29 14:47 | ECG_ITS ---
Measurements Intervals [place] Rate: 115 P: 49 FL: 156 QRS: 17 QRSD: 89 T: 38 QT: 320 QTc: 443 Interpretive Statements SINUS TACHYCARDIA ABNORMAL RHYTHM ECG COMPARED TO ECG 09/03/2021 23:42:47 SINUS TACHYCARDIA NOW PRESENT Electronically Signed On 09-29-2021 20:39:20 CDT by Crissy Alejandro M.D.
[2021-09-29 15:11] LABS: Eosinophils Percent Auto 0.7 % (0-4.4); Hematocrit 24.4 % (42.0-52.0); Hemoglobin 7.5 g/dL (14.0-18.0); Immature Granulocyte Absolute 0.02 K/mm3 (0.00-0.031); Immature Granulocyte Percent A 0.7 % (0-0.5); Lymphocytes Absolute Auto 0.92 K/mm3 (0.9-3.2); Lymphocytes Percent Auto 34.2 % (18.3-44.2); Mean Corpuscular HGB Conc 30.7 g/dl (32-36); Mean Corpuscular Hemoglobin 33.2 pg (26-34); Mean Platelet Volume 8.7 fl (7.4-10.4); Monocytes Absolute Auto 0.1 K/mm3 (0.1-0.6); Monocytes Percent Auto 3.7 % (2.6-8.5); Neutrophils Absolute Auto 1.6 K/mm3 (1.3-6.7); Neutrophils Percent Auto 60.7 % (45.5-73.1); Platelet Count Result 163 k/mm3 (150-375); Red Blood Count 2.26 M/mm3 (4.6-6.20); Red Cell Distribution Width 16.2 % (11.5-14.5); White Blood Count 2.7 K/mm3 (4.5-10.0)
[2021-09-29 15:30] LABS: Alanine Aminotransferase 23 U/L (6-50); Albumin Level 3.5 g/dL (3.5-5.1); Alkaline Phosphatase 112 U/L (38-126); Anion Gap 3 mmol/L (8-16); Aspartate Amino Transferase 35 U/L (17-59); Bilirubin,Total 0.3 mg/dL (0.2-1.3); Blood Urea Nitrogen 23 mg/dL (9-20); Calcium 8.4 mg/dL (8.4-10.2); Carbon Dioxide 27 mmol/L (22-30); Chloride 109 mmol/L (98-107); Estimated CRCL calculation 42 ml/min; Estimated Glomerular Filt Rate > 60; Glucose 121 mg/dL (65-110); Ovalocytes 1+ (NORMAL); Platelet Estimate Adequate (Adequate); Potassium 3.7 mmol/L (3.4-5.0); Sodium 139 mmol/L (137-145)
--- NOTE | 2021-09-29 16:22 | PC.NURSE ---
danette [phone] fax [phone]
[2021-09-29 16:47] LABS: EDCOVIDSCREEN Negative (Negative)
[2021-09-29 17:41] LABS: Appearance Urine Clear (Clear); Bilirubin Urine Negative (Negative); Blood Urine 2+ (Negative); Color Urine Yellow (Yellow); Glucose Urine UA Negative (Negative); Ketones Urine Negative (Negative); Leukocyte Esterase Ur Trace LEU/UL (Negative); Nitrate Urine Negative (Negative); Protein Urine 1+ mg/dL (Negative)
[2021-09-29 17:48] VITALS: BP 132/70; PULSE 103; RESP 17; O2SAT 98
[2021-09-29 17:50] LABS: Bacteria Urine Trace /hpf; Budding Yeast Urine Present /hpf; Mucus Urine Rare /lpf; RBC Urine 51-75 /hpf (0-2); Squamous Epithelial Cell Urine Rare /hpf (Few); WBC Urine 16-20 /hpf
[2021-09-29 17:54] LABS: Add Urine Microscopic? YES
--- NOTE | 2021-09-29 17:55 | ED.GENADULT ---
HPI - General Adult General Chief complaint: Unspecified Stated complaint: requesting skilled nursing placement Time Seen by Provider: 09/29/21 14:38 Source: patient Mode of arrival: ambulatory Limitations: no limitations History of Present Illness HPI narrative: 71-year-old male presents to the ER today for evaluation for admission to skilled nursing. Patient recently diagnosed with multiple myeloma and has been seeing his primary doctor. They had made decision that being admitted to rehab/skilled nursing would be the best possible plan for him. Patient needed evaluation prior to being admitted to [facility]. Patient has no new complaints, denies chest pain, new shortness of breath, abdominal pain, fevers, cough, runny nose. Related Data Home Medications Medication Instructions Recorded Confirmed cholecalciferol (vitamin D3) 1,250 50,000 unit PO MONTHLY 09/02/21 09/02/21 mcg (50,000 unit) capsule ferrous sulfate 325 mg (65 mg 325 mg PO DAILY 09/02/21 09/02/21 iron) tablet tamsulosin 0.4 mg capsule 0.4 mg PO DAILY 09/02/21 09/02/21 Allergies Allergy/AdvReac Type Severity Reaction Status Date / Time Penicillins Allergy Intermediate Unknown Verified 08/01/21 23:06 Review of Systems Review of Systems: CONSTITUTIONAL: Denies fever, chills, or sweats. EYES: Denies visual changes, redness, or discharge. ENT: Denies rhinorrhea, congestion, sore throat, or otalgia. CARDIOVASCULAR: Denies chest pain, palpitations, or edema. RESPIRATORY: Chronic shortness of breath. Denies cough. GASTROINTESTINAL: Denies abdominal pain, nausea, vomiting, or diarrhea. GENITOURINARY: Denies dysuria or hematuria. SKIN: Denies rash or itching. MUSCULOSKELETAL: Denies back pain, joint pain, or myalgia. NEUROLOGIC: Denies headache, numbness, dizziness, or weakness. PSYCHIATRIC: Denies anxiety or depression. [facility] Past Medical History Medical History BPH (benign prostatic hyperplasia) Chronic venous stasis Stents in common iliac veins for the chronic edema Diabetes mellitus Patient denies DVT (deep venous thrombosis) Right common femoral in 2014 History of nephrolithiasis obstructing req hosp in 2014 Hx of essential hypertension Patient denies Osteoporosis Surgical History Surgical History Hx of hemorrhoidectomy Hx of tonsillectomy Family History Family History Mother Heart disease CHF (congestive heart failure) Father Parkinson disease Social History Social History Social History: Patient lives alone. Lifelong nonsmoker. Rare alcohol use. No drug use. Full code. He does not have an individual who would make medical decisions for him if he is unable. Smoking status: Never smoker Alcohol intake: never Substance use: never Spiritual care concerns: No Exam Narrative: GENERAL: Pale, ill-appearing, and in no acute distress. HEAD: Normocephalic, atraumatic. EYES: PERRLA and EOMI. NECK: Supple. No adenopathy or masses. No carotid bruits or JVD CHEST: Clear to auscultation. No respiratory distress. No wheezes rales or rhonchi HEART: Regular rate and rhythm. No murmur heard. Normal peripheral pulses. ABDOMEN: Soft, nontender, nondistended, normal active bowel sounds. EXTREMITIES: Normal range of motion. No edema. SKIN: Pale, warm, dry, no rash. NEURO: No focal deficits. Alert and oriented x3. PSYCH: Normal mood and affect. Course Vital Signs Vital signs: Vital Signs Temperature 36.9 C 09/29/21 14:42 Pulse Rate 118 H 09/29/21 14:42 Respiratory Rate 18 09/29/21 14:42 Blood Pressure 120/67 09/29/21 14:42 Pulse Oximetry 99 09/29/21 14:42 Oxygen Delivery Room Air 09/29/21 14:42 Temperature 36.9 C 09/29/21 14:42 Pulse Rate 103 H 09/29/21 17:48 Respiratory Rate 17 09/29/21 17:48
== END 2021-09-29 17:55 ==
PROVIDERS: Emergency Provider Nurse Practitioner Family
DX: C90.00 Multiple myeloma not having achieved remission (principal); E11.9 Type 2 diabetes mellitus without complications; Z86.718 Personal history of other venous thrombosis and embolism; Z20.822 Contact with and (suspected) exposure to COVID-19
CPT/HCPCS: 36415; 80053; 81001; 85025; 87086; 87088; 87426; 93005; 99283; C9803

== ENCOUNTER 2021-10-24 19:18 | Inpatient (IN) | payer OTHER, SELFPAY ==
[2021-10-24] VITALS (8 sets, daily range): BP systolic 108; BP diastolic 91; PULSE 128–142; RESP 20–40; TEMP 36.9; O2SAT 99–100
--- NOTE | ~2021-10-24 | CT_ITS ---
EXAMINATION: CTA chest PE protocol DATE: 10/29/2021 17:04 CDT INDICATION: Positive d-dimer. Shortness of breath. Covid infection. TECHNIQUE: Computed tomographic angiography (CTA) of the chest was performed with 100 mL Omnipaque-35 0 intravenous contrast. The dose-length product was 394.70 mGy-cm. Maximum intensity projection 3D-re constructions of the aorta and other arteries were constructed by the technologist on a separate work station. COMPARISON: CT dated 10/24/2021. FINDINGS: The study is technically limited by contrast bolus timing and motion artifact. No large bisi tral pulmonary embolism. There is atherosclerosis of the aorta. Cardiomegaly. There is bilateral lowe r lobe airspace consolidation which may represent pneumonia and/or atelectasis. There is a hiatal her carlos. No thoracic lymphadenopathy. Generalized osteopenia. There are multiple bilateral rib fractures of varying age. There are multiple wedge compression and burst fractures of the thoracic spine, age i ndeterminate. Large amount of retained fecal material in the colon with residual contrast. IMPRESSION: 1. Technically limited study. No large central pulmonary embolism. 2: Bilateral lower lobe airspace consolidation which may represent pneumonia and/or atelectasis. Reviewed, dictated and finalized at location A. IMPRESSION: 1. Technically limited study. No large central pulmonary embolism. 2: Bilateral lower lobe airspace consolidation which may represent pneumonia an d/or atelectasis.
--- NOTE | ~2021-10-24 | XR_ITS ---
EXAMINATION: XR chest 1V portable DATE: 10/30/2021 06:01 INDICATION: Respiratory failure TECHNIQUE: frontal view of the chest was obtained. COMPARISON: Chest radiograph and CT dated 10/29/2021 FINDINGS: Decreased lung volumes. Persistent opacities at the medial aspect of the bilateral lower lung zones m ost likely atelectasis with differential including pneumonia. No pulmonary edema, pleural effusion or pneumothorax. Cardiomegaly. Enlargement of the central pulmonary arteries consistent with pulmonary arterial hypertension. Multiple bilateral rib fractures. IMPRESSION: 1. Persistent opacities in the bilateral lower lung zones which could represent atelectasis or pneumo carlos. 2. Cardiomegaly. Reviewed, dictated and finalized at location A. IMPRESSION: 1. Persistent opacities in the bilateral lower lung zones which could represent atelectasis or pneumonia. 2. Cardiomegaly.
--- NOTE | ~2021-10-24 | XR_ITS ---
XR enema water soluble DATE: 10/25/2021 15:03 INDICATION: Colonic distention, constipation. Rule out obstruction. TECHNIQUE: Single contrast water-soluble contrast enema with Gastrografin contrast material. 15 images 87.82 DAP 3.9 minutes fluoroscopy time COMPARISON: 10/2021 CTA chest abdomen pelvis FINDINGS: Water-soluble repeat contrast material was allowed to enter the rectum and colon, with retr ograde filling of the colon is far as the distal transverse colon. There is a very prominent amount o f fecal material within the colon. No stricture was detected from the distal transverse colon to the rectum. The patient insisted upon termination of the procedure prior to completion., Complaining of shortness of breath Upon correlation of the water-soluble contrast enema CT examination, there does not appear to be a co lonic obstructing lesion. There is prominent constipation. IMPRESSION: Incomplete examination, due to insistence upon termination by the patient. Patient was co mplaining of shortness of breath. No apparent colonic obstruction Prominent constipation, large amount retained fecal material within the colon Reviewed, dictated and finalized at Location A. Reviewed, dictated and finalized at location A. IMPRESSION: Incomplete examination, due to insistence upon termination by the p atient. Patient was complaining of shortness of breath. No apparent colonic obstruction Prominent constipation, large amount retained fecal material within the colon
--- NOTE | ~2021-10-24 | XR_ITS ---
EXAMINATION: XR abdomen NG/feed tube insert INDICATION: Nasogastric tube placement TECHNIQUE: Portable AP KUB-NG at 1157 hours and 1208 hours COMPARISON: None available FINDINGS: Initial image demonstrates a nasogastric tube coiled in the esophagus. Final image demonstr ates the repositioned nasogastric tube in the stomach. There are multiple dilated loops of bowel. End oluminal stents are noted in the common iliac veins. IMPRESSION: 1. Nasogastric tube in the stomach. 2. Bowel obstruction. Reviewed, dictated and finalized at location B.
--- NOTE | ~2021-10-24 | XR_ITS ---
EXAMINATION: XR chest 1V portable DATE: 10/31/2021 05:50 INDICATION: Respiratory failure. TECHNIQUE: A single frontal view of the chest was obtained. COMPARISON: Chest single view 10/30/2021, chest CT 10/29/2021 FINDINGS: The lung volumes are small without change. There is mild atelectasis at left lung base. No pleural effusion or pneumothorax. The heart size is normal. The colon is distended, likely adynamic i leus. There are multiple old healed bilateral rib fractures. There is an old healed fracture of right clavicle. IMPRESSION: 1. Persistently small lung volumes with mild atelectasis at left lung base. 2. Persistent distention of the colon, likely adynamic ileus. Reviewed, dictated and finalized at location A.
--- NOTE | ~2021-10-24 | XR_ITS ---
EXAMINATION: XR chest 1V portable DATE: 10/29/2021 05:53 INDICATION: Respiratory failure TECHNIQUE: frontal view of the chest was obtained. COMPARISON: Chest radiograph dated 10/28/2021 FINDINGS: Lung volumes remain small. Persistent opacities at the bilateral lower lung zones. No pulmonary edema , pleural effusion or pneumothorax. The cardiomediastinal silhouette is normal. Consistent gas and st ool scattered throughout multiple loops of colon. There is some residual oral contrast material withi n the descending colon from an earlier single contrast enema. Multiple bilateral rib fractures. IMPRESSION: 1. Persistent opacities in the bilateral lower lung zones which could represent atelectasis or pneumo carlos. Reviewed, dictated and finalized at location A. IMPRESSION: 1. Persistent opacities in the bilateral lower lung zones which could represent atelectasis or pneumonia.
--- NOTE | ~2021-10-24 | XR_ITS ---
EXAMINATION: XR chest 1V portable DATE: 10/28/2021 06:23 INDICATION: Respiratory failure TECHNIQUE: frontal view of the chest was obtained. COMPARISON: Chest radiograph dated 10/27/2021 FINDINGS: Lungs lungs remain small. Persistent opacities at the medial aspect of the bilateral lower lung zones . No pulmonary edema, pleural effusion or pneumothorax. The cardiomediastinal silhouette is within no rmal limits for AP technique. Gas scattered throughout multiple loops of bowel in the upper abdomen w hich appears predominantly colonic. IMPRESSION: 1. Small lung volumes with persistent opacities at the bilateral lower lung zones which could represe nt atelectasis and/or pneumonia. Reviewed, dictated and finalized at location A. IMPRESSION: 1. Small lung volumes with persistent opacities at the bilateral lower lung zon es which could represent atelectasis and/or pneumonia.
--- NOTE | ~2021-10-24 | XR_ITS ---
EXAMINATION: XR chest 1V portable DATE: 10/27/2021 05:35 INDICATION: Respiratory failure TECHNIQUE: frontal view of the chest was obtained. COMPARISON: Chest radiograph dated 10/26/2021 FINDINGS: Lung volumes remain small. Opacities in the medial aspect of the bilateral lower lung zones. No pulmo nary edema, pleural effusion or pneumothorax. The cardiomediastinal silhouette is normal. Colonic gas and retained oral contrast material from prior water soluble enema. Bilateral old rib fractures and chronic compression fractures in the thoracic and lumbar spine. IMPRESSION: 1. Small lung volumes with airspace opacities in the bilateral lower lung zones which could represent atelectasis or pneumonia. Reviewed, dictated and finalized at location A.
--- NOTE | ~2021-10-24 | XR_ITS ---
EXAMINATION: XR chest 1V portable Exam Date/Time: 10/24/2021 19:55 CDT HISTORY: SOB/DIAPHORETIC TODAY HX HTN Comparison: 09/02/2021, x-ray chest and x-ray bone survey. RESULT: Lines, tubes, and devices: None. Lungs and pleura: Low lung volumes, senescent change, bibasilar subsegmental opacities. Cardiomediastinal silhouette: Stable cardiomediastinal silhouette. Other: No acute osseous or upper abdominal finding. Stable chronic large bowel dilation. IMPRESSION: No acute cardiopulmonary process. Reviewed, dictated and finalized at location K.
--- NOTE | ~2021-10-24 | XR_ITS ---
EXAMINATION: XR abdomen obstructive series, XR chest 1V portable DATE: 10/26/2021 06:29 INDICATION: Small bowel obstruction TECHNIQUE: 1. Portable AP upright view of the chest was obtained. 2. Frontal supine and upright views of the abdomen were obtained. COMPARISON: Studies dated 10/25/[address] dated 10/24/2021 FINDINGS: Chest: Persistent opacities in the medial aspect of the bilateral lower lung zones which could represent ate lectasis or pneumonia. No pulmonary edema, pleural effusion or pneumothorax. Cardiomediastinal silhou ette is within normal limits for AP technique. General skeletal changes in the spine and at both shou lders. Osteopenia with multiple thoracic compression fractures but appreciated on prior CT. Obstructive series: Nasogastric tube tip in proximal side port in the relatively decompressed body of the stomach. Gas, r esidual contrast and moderate to large amount of stool scattered throughout multiple loops of colon w hich have decreased in degree of distention since the prior water soluble enema. No definitive dilate d loops of gas-filled small bowel identified. No free intraperitoneal gas. Endoluminal stenting justin ng the bilateral common iliac arteries. Surgical clips at the right groin likely related to prior ing uinal hernia repair. IMPRESSION: 1. Opacities at the bilateral lower lung zones which could represent atelectasis and/or pneumonia. 2. No free intraperitoneal gas or definitive dilated gas-filled loops of small bowel to suggest small bowel obstruction. 3. Persistent prominent gas, stool and retained contrast scattered throughout the colon suggestive of ileus or constipation. Reviewed, dictated and finalized at location A. IMPRESSION: 1. Opacities at the bilateral lower lung zones which could represent atelectasi s and/or pneumonia. 2. No free intraperitoneal gas or definitive dilated gas-filled loops of small bowel to suggest small bowel obstruction. 3. Persistent prominent gas, stool and retained contrast scattered throughout t he colon suggestive of ileus or constipation.
--- NOTE | ~2021-10-24 | CT_ITS ---
EXAMINATION: CTA chest PE abdomen pel DATE: 10/24/2021 21:55 INDICATION: Elevated d-dimer. Abdominal distention. TECHNIQUE: Computed tomography angiography (CTA) of the chest, abdomen and pelvis was performed with 100 mL Omnipaque-350 intravenous contrast timed to evaluate the pulmonary arteries. Coronal maximum i ntensity projection 3D-reconstructions were created by the technologist. Automated exposure control a nd iterative reconstruction technique were employed. Exam dose: 757.79 mGy-cm total exam DLP. COMPARISON: 10/24/2021 portable AP chest 09/02/2021 CT pulmonary scan 09/26/2014 CT abdomen pelvis FINDINGS: There is moderate opacification the pulmonary arteries and no apparent pulmonary embolism. Heart size is within normal range. No pericardial or pleural effusion. No hilar or mediastinal mass l esion or lymphadenopathy. Thoracic aortic calcification. No thoracic aortic aneurysm or dissection. Tortuous left subclavian an d left common carotid arteries. Prominent bilateral lower lobe and lingular basilar atelectasis with air bronchograms. The stomach is distended with large air-fluid level. There is a right inguinal hernia containing small bowel, with very prominent gaseous distention of th e small bowel, suggesting bowel obstruction due to the inguinal hernia. There are some surgical fixat ion devices along the right lower anterior pelvic wall and inguinal area. There is also very prominent amount of gas and fecal material within the colon. Consider barium enema and small bowel series for further evaluation of the complicated intestinal findings. The liver, gallbladder, bile ducts, spleen, pancreas, pancreatic duct and adrenal glands and kidneys appear unremarkable. Bilateral iliac vein grafts are noted. Normal caliber of the abdominal aorta. Tortuous common iliac arteries. No lymphadenopathy or ascites is noted. The urinary bladder was unremarkable. There is prostate enlargement with dilatation of the prosthetic urethral area suggesting prior transurethral resection of the prostate. Diffuse osteopenia. In the anterior right second rib fracture Subacute lateral right eighth, ninth and 10th rib fractures . There are subacute healing and/or old rib fractures on the left from the third through the 10th rib s. Prominent degenerative disc disease at C5-6 and C6-7. Compression fracture deformities of T3, T4, T6, T7, L1, L3 and L5. Burst fracture deformities of T11, T12, L2 and L4.. IMPRESSION: Right inguinal hernia containing small bowel, with apparent associated small bowel obstru ction Prominent gaseous distention of fecal material within the colon. Consider small bowel series and barium enema for more definitive evaluation Prominent bilateral lower lobe and lingular basilar atelectasis with air bronchograms Bilateral subacute and/or old rib fractures Multiple compression and burst fractures of thoracic and lumbar spine Reviewed, dictated and finalized at Location A. Reviewed, dictated and finalized at location A. IMPRESSION: Right inguinal hernia containing small bowel, with apparent associa yvette small bowel obstruction Prominent gaseous distention of fecal material within the colon. Consider small bowel series and barium enema for more definitive evaluation Prominent bilateral lower lobe and lingular basilar atelectasis with air bronch ograms Bilateral subacute and/or old rib fractures Multiple compression and burst fractures of thoracic and lumbar spine
--- NOTE | 2021-10-24 10:27 | ECG_ITS ---
Measurements Intervals [place] Rate: 139 P: 15 [place]: 133 QRS: -14 QRSD: 93 T: -7 QT: 284 QTc: 433 Interpretive Statements SINUS TACHYCARDIA DELAYED PRECORDIAL R/S TRANSITION LEFT VENTRICULAR HYPERTROPHY BORDERLINE ST-T WAVE ABNORMALITY- INFERIOR LEADS BASELINE ARTIFACT- I, II, III, AVR, AVL, AVF, V6 ABNORMAL ECG Electronically Signed On 10-26-2021 15:45:50 CDT by Madi Bradley D.O.
--- NOTE | 2021-10-24 19:26 | ED.GENADULT ---
HPI - General Adult General Chief complaint: Shortness of Breath/Dyspnea Stated complaint: SOB Time Seen by Provider: 10/24/21 19:19 History of Present Illness HPI narrative: 69-year-old male with recent COVID diagnosis presenting the emergency department evaluation of worsening shortness of breath. Patient states he was diagnosed with COVID on the . Patient states since that time he has had slowly worsening shortness of breath. His shortness of breath was so bad today that he called EMS for assistance. Upon arrival to the scene patient was saturating in the 60s and then moderate respiratory distress. Patient was placed on CPAP, he was treated with mag sulfate and transferred to the ED. Upon arrival to the emergency department patient was alert oriented and stated he did feel improved. Patient's saturation was 90% on CPAP. Patient was transitioned to BiPAP. Related Data Home Medications Medication Instructions Recorded Confirmed cholecalciferol (vitamin D3) 1,250 50,000 unit PO MONTHLY 09/02/21 10/25/21 mcg (50,000 unit) capsule ferrous sulfate 325 mg (65 mg 325 mg PO DAILY 09/02/21 10/25/21 iron) tablet Allergies Allergy/AdvReac Type Severity Reaction Status Date / Time Penicillins Allergy Intermediate Unknown Verified 08/01/21 23:06 Review of Systems Review of Systems: ROS unobtainable: Yes unobtainable due to medical condition PMFSH Past Medical History Medical History BPH (benign prostatic hyperplasia) Chronic venous stasis Stents in common iliac veins for the chronic edema Diabetes mellitus Patient denies DVT (deep venous thrombosis) Right common femoral in 2014 History of nephrolithiasis obstructing req hosp in 2014 Hx of essential hypertension Patient denies Osteoporosis Surgical History Surgical History Hx of hemorrhoidectomy Hx of tonsillectomy Family History Family History Mother Heart disease CHF (congestive heart failure) Father Parkinson disease Social History Social History Social History: Patient lives alone. Lifelong nonsmoker. Rare alcohol use. No drug use. Full code. He does not have an individual who would make medical decisions for him if he is unable. Smoking status: Never smoker Alcohol intake: never Substance use: never Spiritual care concerns: No Exam Narrative: APPEARANCE: Ill-appearing HEAD: normocephalic, atraumatic. EYES: PERRLA/EOMI, conjunctivae clear. NOSE: Normal no drainage NECK: Supple. No adenopathy, no masses. RESPIRATORY: Increased respiratory effort and rate. Rhonchi on CARDIOVASCULAR: Regular rate and rhythm without murmurs rubs or gallops. ABDOMINAL: Soft, nontender, nondistended, normal bowel sounds MUSCULOSKELETAL: Moves all extremities. Strength/ROM intact, No edema, No calf tenderness. NEURO: Alert. Cranial nerves II through XII intact. SKIN: Warm, dry. Normal Color PSYCHIATRIC: Normal affect/mood. Course Course Emergency Course: Upon arrival patient was placed on BiPAP. Patient with initial respiratory rate was in the 40s with a heart rate of 140. After being on BiPAP and a continuous neb of 10 mg of albuterol and 2 mg of ipratropium patient's heart rate did improve. At time of admission patient's heart rate is 115, patient's blood pressure is 111/79 and his respiratory rate is in the 20s CTA showed no evidence of pulmonary embolism but did show bibasilar atelectasis versus pneumonia. Patient has recent hospitalization so he is being treated for healthcare associated pneumonia. Patient was started on bank and azithromycin. Cefepime was held due to his underlying penicillin allergy. Case was discussed with patient was accepted for admission to IMU. Vital Signs Vital signs: Vital Signs Temperature 98.4 F
[2021-10-24] MEDS: IPRATROPIUM BR 0.02% INH SOLN 0.5 MG/2.5 ML VIAL 2 MG INHALATION (19:45)
[2021-10-24] MEDS: ALBUTEROL SULFATE NEB 2.5 MG/3 ML INH 10 MG INHALATION (19:45)
[2021-10-24 19:47] LABS: Alveolar/Arterial O2 Gradient 430.5 mmHg; Base Excess ABG -4.4 mEq/l (+/-2.0); Fractional Inspired Oxygen 85 %; HCO3 ABG 18.7 mEq/l (22.0-26.0); Oxygen Content ABG 14.2 %vol (16.0-22.0); Oxyhemoglobin 97.8 % THb (90.0-100.0); PCO2 ABG 27.8 mmHg (35.0-45.0); PO2 ABG 146.7 mmHg (80.0-100.0); PO2 FiO2 Ratio Arterial Blood 1.73 %; Total Hemoglobin 10.1 g/dL (12.0-18.0); pH ABG 7.446 (7.350-7.450)
[2021-10-24 19:48] LABS: Eosinophils Percent Auto 0.4 % (0-4.4); Hematocrit 29.8 % (42.0-52.0); Hemoglobin 9.1 g/dL (14.0-18.0); Immature Granulocyte Absolute 0.01 K/mm3 (0.00-0.031); Immature Granulocyte Percent A 0.4 % (0-0.5); Mean Corpuscular HGB Conc 30.5 g/dl (32-36); Mean Corpuscular Hemoglobin 32.5 pg (26-34); Mean Corpuscular Volume 106.4 fl (80-100); Mean Platelet Volume 9.6 fl (7.4-10.4); Monocytes Absolute Auto 0.1 K/mm3 (0.1-0.6); Monocytes Percent Auto 2.9 % (2.6-8.5); Neutrophils Absolute Auto 2.3 K/mm3 (1.3-6.7); Neutrophils Percent Auto 85.3 % (45.5-73.1); Platelet Count Result 170 k/mm3 (150-375); Red Cell Distribution Width 16.3 % (11.5-14.5); White Blood Count 2.7 K/mm3 (4.5-10.0)
[2021-10-24 19:48] LABS: Device BIPAP; Expiratory Pressure 6 cmH2O; Inspiratory Pressure 14 cmH2O; Site Drawn RIGHT BRACHIAL
[2021-10-24] MEDS: SODIUM CHLORIDE 0.9% IV 500 ML 999 ML IV CONT (19:52)
[2021-10-24 20:02] LABS: Alanine Aminotransferase 27 U/L (6-50); Albumin Level 3.8 g/dL (3.5-5.1); Alkaline Phosphatase 107 U/L (38-126); Anion Gap 8 mmol/L (8-16); Aspartate Amino Transferase 30 U/L (17-59); Bilirubin,Total 0.3 mg/dL (0.2-1.3); Blood Urea Nitrogen 62 mg/dL (9-20); Calcium 9.3 mg/dL (8.4-10.2); Carbon Dioxide 21 mmol/L (22-30); Chloride 112 mmol/L (98-107); Estimated CRCL calculation 29 ml/min; Estimated Glomerular Filt Rate 40; Glucose 177 mg/dL (65-110); Potassium 4.3 mmol/L (3.4-5.0); Sodium 141 mmol/L (137-145)
--- NOTE | 2021-10-24 20:55 | PC.NURSE ---
PT WAS COVID POSITIVE ON 10/11/21. PT IS OUT OF QUARANTINE AT THIS TIME
[2021-10-24 21:14] LABS: SARS-CoV-2 RNA PCR Positive
--- NOTE | 2021-10-24 21:25 | PC.NURSE ---
ADDENDUM: PER NSG HOME THE PT WAS COVID POSITIVE ON 10/07/21
[2021-10-24] MEDS: SODIUM CHLORIDE 0.9% IV 1,000 ML 999 ML IV CONT (21:32)
[2021-10-24 21:39] LABS: Appearance Urine Clear (Clear); Bilirubin Urine Negative (Negative); Blood Urine Negative (Negative); Color Urine Yellow (Yellow); Glucose Urine UA Negative (Negative); Ketones Urine Negative (Negative); Leukocyte Esterase Ur Trace LEU/UL (Negative); Nitrate Urine Negative (Negative); Protein Urine Negative (Negative); Urobilinogen Urine 0.2 mg/dL (<2.0); pH Urine 5.5 (5.0-9.0)
[2021-10-24 21:53] LABS: Bacteria Urine Trace /hpf; Mucus Urine Few /lpf; Squamous Epithelial Cell Urine Rare /hpf (Few); WBC Urine 0-3 /hpf
[2021-10-24 22:02] LABS: Add Urine Microscopic? YES
--- NOTE | 2021-10-24 23:58 | PM.IMHP ---
H&P: HPI History of Present Illness Date/Time: 10/24/21 23:58 Chief Complaint: shortness of breath Narrative: this is a 71-year-old male with past medical history significant for COPD / emphysema, osteoporosis, multiple vertebrae and rib fractures, hyper paraproteinemia, recently diagnosed with COVID, benign prostatic hyperplasia. patient was brought via EMS to the emergency room due to worsening shortness of breath. Patient was had been saturating the 60% on room air required BiPAP in the emergency room continuous. preliminary workup was significant for CT angio of the chest with no acute pulmonary embolism however bilateral bibasal infiltrates were present. Patient is unable to give any history as he is on BiPAP at the time of my visit. Patient is being admitted for further evaluation, management and treatment. Review of Systems Review of Systems: ROS unobtainable: Yes unobtainable due to medical condition ( On BiPAP) PMFSH Past Medical History Medical History (Updated 10/25/21 @ 04:48 by Howard Ashton MD) BPH (benign prostatic hyperplasia) Chronic venous stasis Stents in common iliac veins for the chronic edema Diabetes mellitus Patient denies DVT (deep venous thrombosis) Right common femoral in 2014 History of nephrolithiasis obstructing req hosp in 2014 Hx of essential hypertension Patient denies Osteoporosis Surgical History Surgical History Hx of hemorrhoidectomy Hx of tonsillectomy Family History Family History Mother Heart disease CHF (congestive heart failure) Father Parkinson disease Social History Social History Social History: Patient lives alone. Lifelong nonsmoker. Rare alcohol use. No drug use. Full code. He does not have an individual who would make medical decisions for him if he is unable. Smoking status: Never smoker Alcohol intake: former Substance use: never Spiritual care concerns: No Meds Home Medications and Allergies Home Medications Medication Instructions Recorded Confirmed Type cholecalciferol (vitamin D3) 1,250 50,000 unit PO MONTHLY 09/02/21 10/25/21 History mcg (50,000 unit) capsule ferrous sulfate 325 mg (65 mg 325 mg PO DAILY 09/02/21 10/25/21 History iron) tablet cyanocobalamin (vitamin B-12) 1,000 mcg PO QAM #30 tabs 09/07/21 10/25/21 Rx 1,000 mcg tablet (Vitamin B-12) cyclobenzaprine 10 mg tablet 10 mg PO TID PRN muscle spasm #10 09/07/21 10/25/21 Rx tabs rivaroxaban 20 mg tablet (Xarelto) 10 mg PO DAILY@1700 #30 tabs 09/07/21 10/25/21 Rx Saccharomyces boulardii 250 mg 1 cap PO DAILY 10/25/21 10/25/21 History capsule (Daily Probiotic (S. boulardii)) acyclovir 200 mg capsule 200 mg PO TID 10/25/21 10/25/21 History benzonatate 100 mg capsule 200 mg PO USEASDIRECTD 10/25/21 10/25/21 History dexamethasone 4 mg tablet 4 mg PO DAILY 10/25/21 10/25/21 History docusate sodium 100 mg capsule 100 mg PO DAILY 10/25/21 10/25/21 History lenalidomide 25 mg capsule 25 mg PO DAILY 10/25/21 10/25/21 History lisinopril 2.5 mg tablet 2.5 mg PO DAILY 10/25/21 10/25/21 History sulfamethoxazole 800 1 tablet PO Q12H 10/25/21 10/25/21 History mg-trimethoprim 160 mg tablet (Bactrim DS) tamsulosin 0.4 mg capsule 1 cap PO DAILY 10/25/21 10/25/21 History triamcinolone acetonide 0.1 % See Rx Instructions .Route .COMPLEX 10/25/21 10/25/21 History topical cream Allergies Allergy/AdvReac Type Severity Reaction Status Date / Time Penicillins Allergy Intermediate Unknown Verified 08/01/21 23:06 Vital Signs Vital Signs - 24 hr 10/24/21 19:19 10/24/21 19:32 10/24/21 19:32 Temperature 98.4 F Pulse Rate 140 H 142 H Respiratory Rate 40 H Blood Pressure 108/91 H Pulse Oximetry 100 100 Oxygen Delivery CPAP CPAP Oxygen Flow Rate 15 10/24/21 19:33 10/24/21 19:4
[2021-10-25] VITALS (25 sets, daily range): BP systolic 102–167; BP diastolic 50–96; PULSE 90–130; RESP 20–31; TEMP 36.5–36.6; O2SAT 92–100; BMI 20.9
[2021-10-25] MEDS: IPRATROPIUM BR 0.02% INH SOLN 0.5 MG/2.5 ML VIAL INHALATION ×4 (01:01→19:37)
[2021-10-25] MEDS: ALBUTEROL SULFATE NEB 2.5 MG/3 ML INH 5 MG INHALATION ×2 (01:01→08:25)
--- NOTE | 2021-10-25 03:25 | ADMIMU ---
This patient, Tommy Antony, was admitted to IMU status, and placed in Intensive Care Unit-4. Patient/family oriented to hospital policies and general routines including ID bracelet, bed and alarms, visiting hours, pain management, procedures, bathroom and other care routines, personal items, smoking policy, room service/diet, and visiting hours. Valuables list has been completed. Information on how to activate the Rapid Response Team has been discussed. Patient/Family are encouraged to report perceived risks to care and to ask questions if they do not understand what they are told or what they should do.
[2021-10-25] MEDS: DEXTROSE 5%/0.45% SOD CHL 1,000 ML 50 ML IV CONT (08:22)
[2021-10-25] MEDS: CYCLOBENZAPRINE HCL 10 MG TABLET PO (08:24)
[2021-10-25] MEDS: CYANOCOBALAMIN 1,000 MCG TABLET 1000 MCG PO (08:24)
[2021-10-25] MEDS: FERROUS SULFATE 324 MG TABLET PO (08:25)
[2021-10-25] MEDS: TAMSULOSIN HCL 0.4 MG CAPSULE PO (08:25)
[2021-10-25] MEDS: ACYCLOVIR 200 MG CAPSULE PO (08:25)
[2021-10-25] MEDS: BENZONATATE 100 MG CAPSULE 200 MG PO (08:25)
[2021-10-25] MEDS: DEXAMETHASONE 2 MG TABLET 6 MG PO (08:26)
--- NOTE | 2021-10-25 10:54 | PM.CNGS ---
Assessment and Plan Assessment and plan (1) Reducible right inguinal hernia: Code(s): K40.90 - Unilateral inguinal hernia, without obstruction or gangrene, not specified as recurrent Status: Acute Assessment and Plan: CTA suggested right inguinal hernia with associated small bowel obstruction. I was able to fully reduce his right inguinal hernia on exam and this is nontender. He is not complaining of abdominal pain or nausea, but has significantly small bowel dilatation on CTA. Will order NG tube placement for decompression and keep him NPO. There is no evidence of incarceration or strangulation that would indicate need for urgent surgical intervention. He is not a candidate for repair at this time due to his multiple co-morbidities, anticoagulation, and COVID pneumonia. Would recommend to try treating this conservatively and monitor closely. (2) Small bowel obstruction: Code(s): K56.609 - Unspecified intestinal obstruction, unspecified as to partial versus complete obstruction Status: Acute Assessment and Plan: [place] this is likely secondary to the right inguinal hernia that has been reduced. Continue NG tube decompression, NPO, IV fluids, and analgesics as needed. (3) Abnormal CT of the abdomen: Code(s): R93.5 - Abnormal findings on diagnostic imaging of other abdominal regions, including retroperitoneum Status: Acute Assessment and Plan: CTA suggests colonic distention with a significant amount of gas and stool in the colon. The teleradiologist report suggests that they cannot rule out colonic obstruction. He reportedly had a negative colonoscopy in 2017. Will get a Hypaque enema today, which would be both therapeutic and diagnostic. (4) Multiple myeloma: Code(s): C90.00 - Multiple myeloma not having achieved remission Status: Acute Assessment and Plan: Patient recently diagnosed with multiple myeloma and reportedly sees Dr. Godoy. He is currently taking lenalidomide and dexamethasone. These medications have been continued by the admitting provider. Discussed this with Dr. Rojas today and if there is a need to possibly hold his chemotherapy given the COVID pneumonia? Will consult Oncology for their recommendations. (5) Pneumonia due to 2019-nCoV: Code(s): U07.1 - COVID-19; J12.82 - Pneumonia due to coronavirus disease 2018 Status: Acute Assessment and Plan: Diagnosed with COVID on 10/13/21 with continued worsening symptoms. Currently on BiPAP. Discussed with Dialysis Registered Nurse and is okay with taking him off BiPAP for NG placement and Hypaque enema. Pulmonology consulted as well. Continue management per primary service and pulmonology. 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 Also believe that thromboprophylaxis is recommended when taking lenalidomide due to the increased risk of DVT/PE while taking this medication. Discussed this with Dialysis Registered Nurse - we would recommend to hold his Xarelto for now in case of the need for surgery. Dialysis Registered Nurse recommended prophylactic dosed Lovenox for now and can continue to monitor his kidney function. Xarelto stopped this morning - last dose was at the correction yesterday. (7) VALDEMAR (acute kidney injury): Code(s): N17.9 - Acute kidney failure, unspecified Status: Acute Assessment and Plan: Creatinine 1.7. Continue IV fluids, monitor labs. (8) Chronic venous stasis: Code(s): I87.8 - Other specified disorders of veins Status: Acute Plan I have discussed the patient's case and plan of care with Dr. Leon. Thank you for allowing us to see the patient in consultation and we will continue to follow along with you. History of Present Illness Consult details Consult date: 10/25/21 Reason for consult: other (Right ing
[2021-10-25 11:09] LABS: Glucose Point of Care 124 mg/dl (65-105)
--- NOTE | 2021-10-25 14:25 | PC.NURSE ---
Patient off floor to radiology for procedure at 14:05
--- NOTE | 2021-10-25 14:31 | PM.IMPN ---
Progress Note: A&P Assessment and Plan (1) Small bowel obstruction: Code(s): K56.609 - Unspecified intestinal obstruction, unspecified as to partial versus complete obstruction Status: Acute Assessment and Plan: Patient is a small-bowel obstruction was seen CT scan of the abdomen and pelvis -NG tube in place, continue low intermittent suction for decompression -currently NPO -surgery has been consulted -hypaque enema has been ordered (2) Pneumonia due to 2019-nCoV: Code(s): U07.1 - COVID-19; J12.82 - Pneumonia due to coronavirus disease 2018 Status: Acute Assessment and Plan: Patient hypoxic likely secondary pneumonia, also was positive for SARS-CoV-2 PCR -patient started on azithromycin vancomycin, I added cefepime -switch dexamethasone to IV -patient not a candidate for remdesivir due to acute kidney injury, if kidney functions improve will place him on remdesivir -patient is NPO so cannot get baricitinib -continue BiPAP and high-flow therapy with Airvo intermittently with supplemental oxygen -continue bronchodilators and Pulmicort given COPD (3) Respiratory failure: Code(s): J96.90 - Respiratory failure, unspecified, unspecified whether with hypoxia or hypercapnia Status: Acute Assessment and Plan: As above (4) Hyperproteinemia: Code(s): E88.09 - Other disorders of plasma-protein metabolism, not elsewhere classified Status: Acute Assessment and Plan: Hyper paraproteinemia could be related to multiple myeloma -patient is on lenalidomide at home will hold for now given patient has small-bowel obstruction -oncology has been consulted to evaluate the patient (5) Anticoagulant long-term use: Code(s): Z79.01 - intermission coordinator (current) use of anticoagulants Status: Acute Assessment and Plan: Patient has a history of recurrent DVTs and is on DVT prophylactic dose of Xarelto -continue Lovenox subQ 40 mg daily (6) DVT prophylaxis: Code(s): Z29.9 - Encounter for prophylactic measures, unspecified Status: Acute Assessment and Plan: Patient was on DVT prophylaxis dose of Xarelto -will hold Xarelto for now and start him on Lovenox subQ Plan NG tube to low intermittent suction for bowel decompression Hyaque enema per surgery Bronchodilators Continue antibiotic Additional Plan Code status full code This dictation may have been done utilizing a voice recognition system. Attempts have been made to correct errors. However, there may be uncorrected grammatical, spelling, and recognition errors present. Due to a high probability of clinically significant, life threatening deterioration, the patient required my highest level of preparedness to intervene emergently and I personally spent this critical care time directly and personally managing the patient. This critical care time included obtaining a history; examining the patient; pulse oximetry; ordering and review of studies; arranging urgent treatment with development of a management plan; evaluation of patient's response to treatment; frequent reassessment; and discussions with other providers. It was exclusive of separately billable procedures and treating other patients and teaching time. 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 CTA chest was negative for PE our showed bilateral bibasilar infiltrates. Patient was started on antibiotics and admitted to the IMU 10/25/2021: Patient being seen for hospitalist team. Patient is awake, remains on BiPAP, answers to bronsoni
[2021-10-25] MEDS: LACTATED RINGERS 1,000 ML 999 ML IV CONT (15:06)
--- NOTE | 2021-10-25 15:19 | PC.NURSE ---
Patient returned to ICU 4 from radiology at 1500. All vitals stable at this time.
[2021-10-25] MEDS: LEVALBUTEROL NEB 1.25 MG/3 ML 0.63 MG INHALATION ×2 (15:37→19:37)
--- NOTE | 2021-10-25 18:29 | PDONCCN ---
HPI - Date of Consult Date/Time: 10/25/21 18:29 Requesting Physician: Juanito French MD Primary Care Provider: Luis F Lara, - Consult Narrative Reason for consult: Multiple myeloma Narrative: Tommy Antony is a 71 year old male who was recently diagnosed with stage III multiple myeloma with multiple rib fractures. Patient has a history of COPD and osteoporosis. [place] is [place]. Patient was started on treatment with Revlimid and dexamethasone and so far has completed 1 cycle of the treatment. He came into the hospital with shortness of breath. According the patient he was exposed to some COVID patient while he was in the [place]. Labs showed WBC 2.7. CT scan showed bilateral subacute and old rib fractures along with multiple compression and blood fracture of the thoracic and lumbar spine. He was diagnosed with COVID pneumonia as well as small-bowel obstruction. NG tube was placed. 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 DM2 DVT (deep venous thrombosis) Right common femoral in 2014 History of nephrolithiasis obstructing req hosp in 2014 Hx of essential hypertension Patient denies Multiple myeloma Osteoporosis Surgical History: Surgical History (Last Reviewed 10/25/21 @ 11:27 by PRIYA Rodriguez) History of colonoscopy Most recent colonoscopy 2017 reportedly negative History of right inguinal hernia repair History of transurethral resection of prostate Hx of hemorrhoidectomy Hx of tonsillectomy Family History: Family History (Last Reviewed 10/25/21 @ 11:27 by PRIYA Rodriguez) Mother Heart disease CHF (congestive heart failure) Father Parkinson disease - Social History Social History: Social History (Last Reviewed 10/25/21 @ 11:27 by PRIYA Rodriguez) Alcohol Use: Alcohol intake: former Substance Use: Substance use: never Others: Spiritual care concerns: No Smoking Status: Smoking status: Never smoker Meds Home Medications Medication Instructions Recorded Confirmed Type cholecalciferol (vitamin D3) 1,250 50,000 unit PO MONTHLY 09/02/21 10/25/21 History mcg (50,000 unit) capsule ferrous sulfate 325 mg (65 mg 325 mg PO DAILY 09/02/21 10/25/21 History iron) tablet cyanocobalamin (vitamin B-12) 1,000 mcg PO QAM #30 tabs 09/07/21 10/25/21 Rx 1,000 mcg tablet (Vitamin B-12) cyclobenzaprine 10 mg tablet 10 mg PO TID PRN muscle spasm #10 09/07/21 10/25/21 Rx tabs rivaroxaban 20 mg tablet (Xarelto) 10 mg PO DAILY@1700 #30 tabs 09/07/21 10/25/21 Rx Saccharomyces boulardii 250 mg 1 cap PO DAILY 10/25/21 10/25/21 History capsule (Daily Probiotic (S. boulardii)) acyclovir 200 mg capsule 200 mg PO TID 10/25/21 10/25/21 History benzonatate 100 mg capsule 200 mg PO USEASDIRECTD 10/25/21 10/25/21 History dexamethasone 4 mg tablet 4 mg PO DAILY 10/25/21 10/25/21 History docusate sodium 100 mg capsule 100 mg PO DAILY 10/25/21 10/25/21 History lenalidomide 25 mg capsule 25 mg PO DAILY 10/25/21 10/25/21 History lisinopril 2.5 mg tablet 2.5 mg PO DAILY 10/25/21 10/25/21 History sulfamethoxazole 800 1 tablet PO Q12H 10/25/21 10/25/21 History mg-trimethoprim 160 mg tablet (Bactrim DS) tamsulosin 0.4 mg capsule 1 cap PO DAILY 10/25/21 10/25/21 History triamcinolone acetonide 0.1 % See Rx Instructions .Route .COMPLEX 10/25/21 10/25/21 History topical cream Allergies Allergy/AdvReac Type Severity Reacti
--- NOTE | 2021-10-25 19:31 | PM.CNPUL ---
Assessment and Plan Assessment and plan (1) Respiratory failure: Qualifiers: Chronicity: acute Respiratory failure complication: hypoxia Qualified Code(s): J96.01 - Acute respiratory failure with hypoxia Code(s): J96.90 - Respiratory failure, unspecified, unspecified whether with hypoxia or hypercapnia Status: Acute Assessment and Plan: He has acute hypoxemic respiratory failure secondary to COVID pneumonia. He is able oxygen 8 using BiPAP and alternates with cannulas to give his face a chance to have the tightly fitting mask off. He has a compensated ABG with acceptable acid base status. He has simultaneous problems including his bowel distention with what looked like a sbo and NG placement. He could not tolerate the hypaque enema due to shortness of breath which is better. (2) Pneumonia due to 2019-nCoV: Code(s): U07.1 - COVID-19; J12.82 - Pneumonia due to coronavirus disease 2019 Status: Acute Assessment and Plan: He tested (+) for COVID, cannot take remdesivir due to acute renal failure. He is getting IV dexamethasone 6 mg a day for COVID pneumonia. (3) Hypoxia: Code(s): R09.02 - Hypoxemia Status: Acute Assessment and Plan: His O2 can be weaned to maintain saturation adequately. Additional Plan d/w Dr Rojas History of Present Illness History of Present Illness Consult date: 10/25/21 Requesting physician: Lexi Rojas MD Chief complaint: COVID Hypoxia Narrative: pt was seen 10/25/2021 16:15 NEW: Tommy Antony is a 71 year old man with COVID pneumonia diagnosed October 13 and hypoxemia. He was recently diagnosed with multiple myeloma with several rib fractures, treated with chemotherapy. He was in the [place] where he lives, and contracted COVID there. He was admitted with increased shortness of breath, came to the ED with shortness of breath. He has bilateral pneumonia with huge loops of bowel on KUB. An NG tube was placed with feculent liquid returning. Dr Leon has evaluated him for his right inguinal hernia which is not incarcerated. He has low wbc 2.7 k, anemia H/H 9.1/29.8 and renal insufficiency BUN 62/1.7 creat. His SARS-CoV-2 PCR was positive again October 24. CT chest /abdomen /pelvis = bilateral subacute and old rib fractures, multiple compression fractures, thoracic and lumbar spine.? PMH:: chronic venous stasis, multiple DVTs on Xarelto prior to admission. He was recently diagnosed with multiple myeloma in his chemotherapy is on hold secondary to infection with COVID. Review of Systems Review of Systems: All systems reviewed & are unremarkable except as noted in HPI and below (HPI) PMFSH Past Medical History Medical History BPH (benign prostatic hyperplasia) S/p TURP Chronic venous stasis Stents in common iliac veins for the chronic edema Diabetes mellitus IGT versus DM2 DVT (deep venous thrombosis) Right common femoral in 2014 History of nephrolithiasis obstructing req hosp in 2014 Hx of essential hypertension Patient denies Multiple myeloma Osteoporosis Surgical History Surgical History History of colonoscopy Most recent colonoscopy 2017 reportedly negative History of right inguinal hernia repair History of transurethral resection of prostate Hx of hemorrhoidectomy Hx of tonsillectomy Family History Family History Mother Heart disease CHF (congestive heart failure) Father Parkinson disease Social History Social History Social History: Patient lives alone. Lifelong nonsmoker. Rare alcohol use. No ailyn
[2021-10-25] MEDS: BUDESONIDE RESPULE NEB 0.5 MG/2 ML AMP INHALATION (19:38)
[2021-10-25] MEDS: DEXTROSE 5%/0.45% SOD CHL 1,000 ML 100 ML IV CONT (22:38)
[2021-10-25] MEDS: MAGNESIUM HYDROXIDE SUSP 30 ML UDC FEED TUBE (22:39)
[2021-10-26] VITALS (30 sets, daily range): BP systolic 102–129; BP diastolic 64–81; PULSE 84–107; RESP 15–98; TEMP 34.3–36.8; O2SAT 97–100
[2021-10-26] MEDS: LEVALBUTEROL NEB 1.25 MG/3 ML 0.63 MG INHALATION ×4 (01:38→19:41)
[2021-10-26] MEDS: IPRATROPIUM BR 0.02% INH SOLN 0.5 MG/2.5 ML VIAL INHALATION ×4 (01:38→19:41)
[2021-10-26 04:54] LABS: Hematocrit 23.1 % (42.0-52.0); Lymphocytes Absolute Auto 0.22 K/mm3 (0.9-3.2); Lymphocytes Percent Auto 11.3 % (18.3-44.2); Mean Corpuscular HGB Conc 29.9 g/dl (32-36); Mean Corpuscular Hemoglobin 32.2 pg (26-34); Mean Corpuscular Volume 107.9 fl (80-100); Mean Platelet Volume 9.7 fl (7.4-10.4); Monocytes Absolute Auto 0.1 K/mm3 (0.1-0.6); Monocytes Percent Auto 7.2 % (2.6-8.5); Neutrophils Absolute Auto 1.6 K/mm3 (1.3-6.7); Neutrophils Percent Auto 81.5 % (45.5-73.1); Platelet Count Result 112 k/mm3 (150-375); Red Blood Count 2.14 M/mm3 (4.6-6.20); Red Cell Distribution Width 16.5 % (11.5-14.5)
[2021-10-26 05:04] LABS: INR 1.4; Prothrombin Time 16.8 Seconds (11.1-14.7)
[2021-10-26 05:07] LABS: Alanine Aminotransferase 20 U/L (6-50); Albumin Level 2.9 g/dL (3.5-5.1); Alkaline Phosphatase 75 U/L (38-126); Anion Gap 0 mmol/L (8-16); Aspartate Amino Transferase 22 U/L (17-59); Bilirubin,Total 0.4 mg/dL (0.2-1.3); Blood Urea Nitrogen 43 mg/dL (9-20); Calcium 7.9 mg/dL (8.4-10.2); Carbon Dioxide 26 mmol/L (22-30); Chloride 118 mmol/L (98-107); Estimated CRCL calculation 48 ml/min; Estimated Glomerular Filt Rate > 60; Glucose 112 mg/dL (65-110); Lipase 40 U/L (23-300); Magnesium 2.2 mg/dL (1.6-2.3); Phosphorus 4.3 mg/dL (2.5-4.5); Potassium 4.1 mmol/L (3.4-5.0); Sodium 144 mmol/L (137-145)
[2021-10-26 05:20] LABS: Hemoglobin 6.9 g/dL (14.0-18.0)
[2021-10-26] MEDS: BUDESONIDE RESPULE NEB 0.5 MG/2 ML AMP INHALATION ×2 (07:44→19:41)
[2021-10-26] MEDS: DEXTROSE 5%/0.45% SOD CHL 1,000 ML 100 ML IV CONT (08:53)
[2021-10-26] MEDS: PANTOPRAZOLE SODIUM IV 40 MG VIAL IV PUSH ×2 (09:59→21:30)
[2021-10-26] MEDS: DEXTROSE 5%/0.225% SOD CHL 1,000 ML 75 ML IV CONT ×2 (09:59→19:16)
[2021-10-26] MEDS: REMDESIVIR 200 MG/NS 250 ML 200 MG/250 ML BAG 250 MG IVPB (10:35)
--- NOTE | 2021-10-26 12:55 | WPDINTPN ---
Progress Note: A&P Assessment and Plan (1) Small bowel obstruction: Code(s): K56.609 - Unspecified intestinal obstruction, unspecified as to partial versus complete obstruction Status: Acute Assessment and Plan: Patient is a small-bowel obstruction was seen CT scan of the abdomen and pelvis -bowel sounds are present and he had 2 bowel movements overnight -NG tube is in place, continue low intermittent suction for decompression. He denies any nausea vomiting -currently NPO -surgery is following -patient was given milk of magnesia for constipation by general surgery -diet as per General surgery (2) Pneumonia due to 2019-nCoV: Code(s): U07.1 - COVID-19; J12.82 - Pneumonia due to coronavirus disease 2018 Status: Acute Assessment and Plan: Patient hypoxic likely secondary pneumonia, also was positive for SARS-CoV-2 PCR -patient started on azithromycin vancomycin and cefepime -he is on dexamethasone IV -patient initially was not started on remdesivir due to acute kidney injury but since his kidney function has improved I have started him on remdesivir -hold baricitinib or tocilizumab if deteriorates at this point as patient is leukopenic -his CT scan findings are not consistent with typical COVID 19 pneumonia -patient denies receiving COVID vaccine and also does not have any record of receiving one (3) Respiratory failure: Code(s): J96.90 - Respiratory failure, unspecified, unspecified whether with hypoxia or hypercapnia Status: Acute Assessment and Plan: Appears to be multifactorial. History of COPD emphysema, tested positive for COVID-19, CT scan suggestive of pneumonia and air bronchograms 10/25/2021: CT scan of the chest, abdomen and pelvis Right inguinal hernia containing small bowel, with apparent associated small bowel obstruction Prominent gaseous distention of fecal material within the colon. Consider small bowel series and barium enema for more definitive evaluation Prominent bilateral lower lobe and lingular basilar atelectasis with air bronchograms Bilateral subacute and/or old rib fractures Multiple compression and burst fractures of thoracic and lumbar spine He saturating well on 35% FiO2. I will transition him to nasal cannula and monitor He is on empiric vanc, cefepime and azithromycin Blood cultures have been sent and are pending He is on steroids and bronchodilators (4) Hyperproteinemia: Code(s): E88.09 - Other disorders of plasma-protein metabolism, not elsewhere classified Status: Acute Assessment and Plan: Hyper paraproteinemia could be related to multiple myeloma -patient is on lenalidomide at home will hold for now given patient has small-bowel obstruction -oncology has been consulted to evaluate the patient (5) Anticoagulant long-term use: Code(s): Z79.01 - [facility] (current) use of anticoagulants Status: Acute Assessment and Plan: Patient has a history of recurrent DVTs and is on DVT prophylactic dose of Xarelto He was started on Lovenox but is on hold due to drop in hemoglobin (6) DVT prophylaxis: Code(s): Z29.9 - Encounter for prophylactic measures, unspecified Status: Acute Assessment and Plan: Patient was on DVT prophylaxis dose of Xarelto Patient was started on Lovenox but since he has dropped his hemoglobin to 6.9 I will hold his anticoagulation. SCDs (7) UTI (urinary tract infection): Code(s): N39.0 - Urinary tract infection, site not specified Status: Acute Assessment and Plan: UA is abnormal although not classical for UTI Culture has been sent and patient is on broad-spectrum antibiotics already which would cover any UTI (8) Pancytopenia: Code(s): D61.818 - Other pancytopenia Status: Acute Assessment and Plan: Patient has pancytopenia likely partly from bone marrow suppression from chemotherapy and also hemodilution Hemoglobin dropped to 6.9 today
[2021-10-26 13:44] LABS: Glucose Point of Care 105 mg/dl (65-105)
--- NOTE | 2021-10-26 15:09 | PM.PNGS ---
Progress Note: A&P Assessment and Plan (1) Small bowel obstruction: Code(s): K56.609 - Unspecified intestinal obstruction, unspecified as to partial versus complete obstruction Status: Acute Assessment and Plan: Secondary to the right inguinal hernia that has been reduced. Resolved. Obstructive series this morning showed no dilated loops of small bowel and he has had 3 BMs. Will try clamping his NG and remove later today if he tolerates the clamping trial. Will start clears once the NG is removed. (2) Reducible right inguinal hernia: Code(s): K40.90 - Unilateral inguinal hernia, without obstruction or gangrene, not specified as recurrent Status: Acute Assessment and Plan: Right inguinal hernia soft and reducible. He is not a candidate for repair at this time due to his multiple co-morbidities, anticoagulation, and COVID pneumonia. Continue to monitor for now. Discussed with the patient how to try reducing this on his own if he notices pain/bulge. Could discuss elective repair as an outpatient once recovered from COVID pneumonia. (3) Abnormal CT of the abdomen: Code(s): R93.5 - Abnormal findings on diagnostic imaging of other abdominal regions, including retroperitoneum Status: Acute Assessment and Plan: CTA suggests colonic distention with a significant amount of gas and stool in the colon. Unable to tolerate the Hypaque enema due to SOB, but no apparent colonic obstruction and appears to be constipated. Now moving his bowels but still a fair amount of stool on his plain films this morning. Will give a fleets enema or dulcolax suppository, whichever he can tolerate better with his respiratory status. May also give another dose of milk of mag. (4) Multiple myeloma: Code(s): C90.00 - Multiple myeloma not having achieved remission Status: Acute Assessment and Plan: Oncology consulted and recommendations noted. Chemotherapy now being held due to COVID pneumonia. (5) Pneumonia due to 2019-nCoV: Code(s): U07.1 - COVID-19; J12.82 - Pneumonia due to coronavirus disease 2019 Status: Acute Assessment and Plan: Diagnosed with COVID on 10/13/21 and positive again on 10/24/21. Still on BiPAP today. Management per primary service and pulmonology. Continue appropriate isolation precautions. (6) Anticoagulant long-term use: Code(s): Z79.01 - [facility] (current) use of anticoagulants Status: Acute Assessment and Plan: He has a history of DVTs and is on Xarelto for DVT prophylaxis. This was switched to prophylactic-dosed Lovenox in case of the need for surgery. Lovenox now stopped as well due to drop in hemoglobin. (7) VALDEMAR (acute kidney injury): Code(s): N17.9 - Acute kidney failure, unspecified Status: Acute Assessment and Plan: Creatinine improved at 1.1 today. Monitor labs. (8) Chronic venous stasis: Code(s): I87.8 - Other specified disorders of veins Status: Acute (9) Pancytopenia: Code(s): D61.818 - Other pancytopenia Status: Acute Assessment and Plan: Likely multifactorial due to the multiple myeloma, bone marrow suppression, and possibly some hemodilution. Hgb dropped to 6.9 today, patient refusing transfusion. Xarelto on hold and he was switched to prophylactic-dosed Lovenox, which is now on hold as well due to the anemia. Continue to monitor labs. Plan I have discussed the patient's case and plan of care with Dr. Leon. Subjective Subjective Date/Time Seen: 10/26/21 13:30 Patient reports: no new complaints, flatus and bowel movement (x3) Review of Systems Review of Systems: All systems reviewed & are unremarkable except as noted in HPI and below Exam Const: General: no acute distress, awake and ill appearing chronically Nutritional Appearance: thin Orientation/consciousness: patient oriented x3 GI: Inspection: distended Neuro: General: moves all extre
[2021-10-27] VITALS (26 sets, daily range): BP systolic 106–131; BP diastolic 65–78; PULSE 68–109; RESP 16–30; TEMP 35.9–36.6; O2SAT 92–100
[2021-10-27] MEDS: LEVALBUTEROL NEB 1.25 MG/3 ML 0.63 MG INHALATION ×4 (01:43→21:38)
[2021-10-27] MEDS: IPRATROPIUM BR 0.02% INH SOLN 0.5 MG/2.5 ML VIAL INHALATION ×4 (01:43→21:39)
[2021-10-27 05:03] LABS: Hematocrit 22.2 % (42.0-52.0); Mean Corpuscular HGB Conc 31.1 g/dl (32-36); Mean Corpuscular Hemoglobin 32.7 pg (26-34); Mean Corpuscular Volume 105.2 fl (80-100); Mean Platelet Volume 9.6 fl (7.4-10.4); Platelet Count Result 107 k/mm3 (150-375); Red Blood Count 2.11 M/mm3 (4.6-6.20); Red Cell Distribution Width 16.1 % (11.5-14.5)
[2021-10-27 05:16] LABS: Alanine Aminotransferase 19 U/L (6-50); Albumin Level 2.7 g/dL (3.5-5.1); Alkaline Phosphatase 73 U/L (38-126); Anion Gap -2 mmol/L (8-16); Aspartate Amino Transferase 20 U/L (17-59); Bilirubin,Total 0.4 mg/dL (0.2-1.3); Blood Urea Nitrogen 27 mg/dL (9-20); Calcium 7.6 mg/dL (8.4-10.2); Carbon Dioxide 26 mmol/L (22-30); Chloride 110 mmol/L (98-107); Estimated CRCL calculation 58 ml/min; Estimated Glomerular Filt Rate > 60; Glucose 101 mg/dL (65-110); Magnesium 1.9 mg/dL (1.6-2.3); Potassium 3.8 mmol/L (3.4-5.0); Sodium 134 mmol/L (137-145)
[2021-10-27 05:44] LABS: White Blood Count 1.5 K/mm3 (4.5-10.0)
[2021-10-27 05:45] LABS: Hemoglobin 6.9 g/dL (14.0-18.0)
[2021-10-27 05:53] LABS: INR 1.3; Prothrombin Time 15.8 Seconds (11.1-14.7)
[2021-10-27] MEDS: BUDESONIDE RESPULE NEB 0.5 MG/2 ML AMP INHALATION ×2 (08:39→21:38)
--- NOTE | 2021-10-27 09:24 | PM.PNGS ---
Progress Note: A&P Assessment and Plan (1) Small bowel obstruction: Code(s): K56.609 - Unspecified intestinal obstruction, unspecified as to partial versus complete obstruction Status: Acute Assessment and Plan: resolving, NG out, exam benign, jerardo clears, slowly ADAT (2) Reducible right inguinal hernia: Code(s): K40.90 - Unilateral inguinal hernia, without obstruction or gangrene, not specified as recurrent Status: Acute Assessment and Plan: reduced, exam benign, will likely need interval repair as outpatient once acute medical issues are stablilized Subjective Subjective Date/Time Seen: 10/27/21 09:24 no acute issues, NG out, jerardo clears, +bowel fxn, no N/V Review of Systems Review of Systems: All systems reviewed & are unremarkable except as noted in HPI and below Exam Const: General: cooperative, comfortable, no acute distress and ill appearing Resp: Auscultation: diminished lung sounds Cardio: Rate: regular rate Rhythm: regular rhythm GI: Inspection: normal to inspection GI Palp: No abdominal tenderness, Yes Soft to palpation, No Tenderness to palpation present (GI), No Guarding due to palpation present (GI) and No Rigid due to palpation Objective Data Vital Signs Vital Signs: Vital Signs - 24 hr 10/26/21 10:38 10/26/21 10:52 10/26/21 11:50 Temperature Pulse Rate 94 93 93 Respiratory Rate 21 H 21 H Blood Pressure Pulse Oximetry 100 100 Oxygen Delivery BiPAP BiPAP Oxygen Flow Rate Fraction of Inspired Oxygen 40 10/26/21 12:00 10/26/21 12:00 10/26/21 13:57 Temperature 36.6 C Pulse Rate 89 91 Respiratory Rate 22 H Blood Pressure 118/75 Pulse Oximetry 100 99 Oxygen Delivery High Flow Nasal Cannula Oxygen Flow Rate 60 Fraction of Inspired Oxygen 45 10/26/21 14:00 10/26/21 11:35 10/26/21 11:36 Temperature Pulse Rate 96 93 91 Respiratory Rate 98 H 21 H Blood Pressure Pulse Oximetry 97 100 Oxygen Delivery BiPAP BiPAP Oxygen Flow Rate Fraction of Inspired Oxygen 40 10/26/21 14:36 10/26/21 14:20 10/26/21 14:38 Temperature Pulse Rate 94 95 94 Respiratory Rate 20 20 20 Blood Pressure Pulse Oximetry 100 Oxygen Delivery High Flow Therapy with Na Oxygen Flow Rate 60 Fraction of Inspired Oxygen 35 10/26/21 16:00 10/26/21 16:00 10/26/21 16:00 Temperature 36.7 C Pulse Rate 94 104 H 107 H Respiratory Rate 20 18 Blood Pressure 116/77 Pulse Oximetry 100 99 Oxygen Delivery High Flow Therapy with Na Oxygen Flow Rate 60 Fraction of Inspired Oxygen 35 10/26/21 18:00 10/26/21 18:07 10/26/21 19:41 Temperature Pulse Rate 103 H 102 H 105 H Respiratory Rate 20 26 H Blood Pressure 129/81 Pulse Oximetry 98 100 Oxygen Delivery BiPAP Oxygen Flow Rate Fraction of Inspired Oxygen 10/26/21 19:41 10/26/21 19:41 10/26/21 20:05 Temperature Pulse Rate 105 H 105 H 105 H Respiratory Rate 26 H 26 H 26 H Blood Pressure Pulse Oximetry 100 Oxygen Delivery BiPAP Oxygen Flow Rate Fraction of Inspired Oxygen 35 10/26/21 20:00 10/26/21 20:00 10/26/21 20:00 Temperature 36.4 C L Pulse Rate 106 H 106 H 106 H Respiratory Rate 21 H 21 H Blood Pressure 122/74 Pulse Oximetry 99 99 Oxygen Delivery BiPAP Oxygen Flow Rate Fraction of Inspired Oxygen 35 10/26/21 22:00 10/26/21 23:00 10/27/21 00:00 Temperature Pulse Rate 92 97 84 Respiratory Rate 24 H Blood Pressure Pulse Oximetry 97 Oxygen Delivery BiPAP Oxygen Flow Rate Fraction of Inspired Oxygen 10/27/21 00:00 10/27/21 00:00 10/27/21 01:43 Temperature 36.2 C L Pulse Rate 84 84 79 Respiratory Rate 20 20 22 H Blood Pressure 112/68 Pulse Oximetry 100 100 100 Oxygen Delivery BiPAP BiPAP Oxygen Flow Rate Fraction of Inspired Oxygen 35 10/27/21 01:43 10/27/21 02:00 10/27/21 02:03 Temperature Pulse Rate 79 81 79 Respiratory Rate 22 H 22 H Blood P
[2021-10-27] MEDS: DEXTROSE 5%/0.225% SOD CHL 1,000 ML 75 ML IV CONT ×2 (09:45→23:30)
[2021-10-27] MEDS: PANTOPRAZOLE SODIUM IV 40 MG VIAL IV PUSH ×2 (09:49→20:14)
[2021-10-27] MEDS: REMDESIVIR 100 MG/NS 250 ML 100 MG/250 ML BAG 250 MG IVPB (09:51)
[2021-10-27] MEDS: FILGRASTIM-SNDZ 480 MCG/0.8 ML SYRINGE SUB-Q (11:29)
[2021-10-27] MEDS: EPOETIN ALFA-EPBX 20,000 UNITS/ML VIAL 20000 UNITS SUB-Q (11:29)
--- NOTE | 2021-10-27 11:57 | PM.IMPN ---
Progress Note: A&P Assessment and Plan (1) Small bowel obstruction: Code(s): K56.609 - Unspecified intestinal obstruction, unspecified as to partial versus complete obstruction Status: Acute Assessment and Plan: Patient is a small-bowel obstruction was seen CT scan of the abdomen and pelvis - Patient was given milk of magnesia for constipation by general surgery -bowel sounds are present and he had 3 bowel movements yesterday -NG tube was placed on low intermittent suction for decompression. - 10/26 NG tube was removed by general surgery and patient tolerating clear liquid diet. No nausea vomiting at this time -continue advance diet as per General surgery (2) Pneumonia due to 2019-nCoV: Code(s): U07.1 - COVID-19; J12.82 - Pneumonia due to coronavirus disease 2018 Status: Acute Assessment and Plan: Patient hypoxic likely secondary pneumonia, also was positive for SARS-CoV-2 PCR -patient started on azithromycin vancomycin and cefepime -he is on dexamethasone IV -patient initially was not started on remdesivir due to acute kidney injury but since his kidney function has improved I have started him on remdesivir on 10/26 -hold baricitinib or tocilizumab at this point as patient is leukopenic -his CT scan findings are not consistent with typical COVID 19 pneumonia -patient denies receiving COVID vaccine and also does not have any record of receiving one (3) Respiratory failure: Qualifiers: Chronicity: acute Respiratory failure complication: hypoxia Qualified Code(s): J96.01 - Acute respiratory failure with hypoxia Code(s): J96.90 - Respiratory failure, unspecified, unspecified whether with hypoxia or hypercapnia Status: Acute Assessment and Plan: Appears to be multifactorial. History of COPD emphysema, tested positive for COVID-19, CT scan suggestive of pneumonia and air bronchograms 10/25/2021: CT scan of the chest, abdomen and pelvis Right inguinal hernia containing small bowel, with apparent associated small bowel obstruction Prominent gaseous distention of fecal material within the colon. Consider small bowel series and barium enema for more definitive evaluation Prominent bilateral lower lobe and lingular basilar atelectasis with air bronchograms Bilateral subacute and/or old rib fractures Multiple compression and burst fractures of thoracic and lumbar spine He saturating well on 30% FiO2. I will transition him to high-flow nasal cannula again this morning and monitor Continue BiPAP p.r.n. He is on empiric vanc, cefepime and azithromycin Blood cultures have been sent and are pending He is on steroids and bronchodilators (4) Pancytopenia: Code(s): D61.818 - Other pancytopenia Status: Acute Assessment and Plan: Patient has pancytopenia likely partly from bone marrow suppression from chemotherapy and also hemodilution Hemoglobin dropped to 6.9 today. Started ppi IV q.12 hours. Discontinue Lovenox. Monitor hemoglobin. Although patient would benefit from anticoagulation but considering patient is refusing to accept transfusion. In light of drop in hemoglobin I will continue to hold anticoagulation. Monitor platelet count Oncology has ordered a Check iron and vitamin B12 level Patient will be started on Epogen and filgrastim per oncology I spoke to patient in detail and he does not want to accept any blood product transfusion at this time. I explained to him that if his anemia or thrombocytopenia deteriorate to a point that it may become life-threatening [place] still do not want transfusion. He again confirmed that he does not want any transfusion in any situation even if his life depended on it. He does want to be full code and wants resuscitation and intubation if needed. 10/27 spoke to patient again today and he again reiterated that he does not want any blood products transfusion due to moral and ethical reasons as those are obtained from another lauren
[2021-10-27 13:14] LABS: Iron 79 ug/dL (49-181)
[2021-10-27 13:19] LABS: Folic Acid 6.7 ng/mL (2.76->20)
[2021-10-27 13:23] LABS: Percent Iron Saturation 40 % (20-50)
[2021-10-27] MEDS: ALPRAZolam (*CRX) 0.5 MG TABLET PO (13:33)
--- NOTE | 2021-10-27 23:16 | PC.NURSE ---
Verbal report and SBAR given to Pao Mohamud RN on IMU. Patient transferred to unit without any adverse events and all his belongings traveled with the patient. This included his cart, clothes, glass case and folder that was on his bedside table. All meds were given to RN.
[2021-10-28] VITALS (30 sets, daily range): BP systolic 113–131; BP diastolic 62–77; PULSE 75–116; RESP 16–28; TEMP 36.4–37.1; O2SAT 95–100
[2021-10-28] MEDS: IPRATROPIUM BR 0.02% INH SOLN 0.5 MG/2.5 ML VIAL INHALATION ×4 (02:01→20:30)
[2021-10-28] MEDS: LEVALBUTEROL NEB 1.25 MG/3 ML 0.63 MG INHALATION ×4 (02:02→20:30)
[2021-10-28 07:29] LABS: Hemoglobin 7.4 g/dL (14.0-18.0); Mean Corpuscular HGB Conc 30.8 g/dl (32-36); Mean Corpuscular Volume 103.9 fl (80-100); Mean Platelet Volume 9.7 fl (7.4-10.4); Platelet Count Result 102 k/mm3 (150-375); Red Blood Count 2.31 M/mm3 (4.6-6.20); Red Cell Distribution Width 15.8 % (11.5-14.5); White Blood Count 3.8 K/mm3 (4.5-10.0)
[2021-10-28 07:39] LABS: Alanine Aminotransferase 27 U/L (6-50); Albumin Level 2.7 g/dL (3.5-5.1); Alkaline Phosphatase 81 U/L (38-126); Anion Gap 0 mmol/L (8-16); Aspartate Amino Transferase 22 U/L (17-59); Bilirubin,Total 0.6 mg/dL (0.2-1.3); Blood Urea Nitrogen 19 mg/dL (9-20); Calcium 7.5 mg/dL (8.4-10.2); Carbon Dioxide 25 mmol/L (22-30); Chloride 104 mmol/L (98-107); Estimated CRCL calculation 74 ml/min; Estimated Glomerular Filt Rate > 60; Glucose 101 mg/dL (65-110); Magnesium 1.7 mg/dL (1.6-2.3); Potassium 3.9 mmol/L (3.4-5.0); Sodium 129 mmol/L (137-145)
[2021-10-28 07:42] LABS: INR 1.3; Prothrombin Time 15.8 Seconds (11.1-14.7)
[2021-10-28 08:00] LABS: Vancomycin Trough 5.7 ug/mL (10.0-20.0)
[2021-10-28] MEDS: BUDESONIDE RESPULE NEB 0.5 MG/2 ML AMP INHALATION ×2 (08:50→20:30)
[2021-10-28] MEDS: REMDESIVIR 100 MG/NS 250 ML 100 MG/250 ML BAG 250 MG IVPB (09:27)
[2021-10-28] MEDS: PANTOPRAZOLE SODIUM IV 40 MG VIAL IV PUSH ×2 (09:32→21:23)
[2021-10-28] MEDS: FILGRASTIM-SNDZ 480 MCG/0.8 ML SYRINGE SUB-Q (09:32)
--- NOTE | 2021-10-28 10:49 | PM.IMPN ---
Progress Note: A&P Assessment and Plan (1) Small bowel obstruction: Code(s): K56.609 - Unspecified intestinal obstruction, unspecified as to partial versus complete obstruction Status: Acute Assessment and Plan: Small-bowel obstruction with severe constipation status post NG tube decompression, improving, diet advanced (2) Pneumonia due to 2019-nCoV: Code(s): U07.1 - COVID-19; J12.82 - Pneumonia due to coronavirus disease 2018 Status: Acute Assessment and Plan: COVID pneumonia, unvaccinated, currently being treated for possible secondary bacterial infection with vancomycin, cefepime azithromycin, started on admission October 24, 2021, currently on day 5, not a candidate for DIRK inhibitor at this time Remdesivir started October 26 once renal function improved, end date October 30, to complete 5 doses Dexamethasone started October 26, end date November 04 to complete 10 doses (3) Respiratory failure: Qualifiers: Chronicity: acute Respiratory failure complication: hypoxia Qualified Code(s): J96.01 - Acute respiratory failure with hypoxia Code(s): J96.90 - Respiratory failure, unspecified, unspecified whether with hypoxia or hypercapnia Status: Acute Assessment and Plan: Appears to be multifactorial. History of COPD emphysema, tested positive for COVID-19, CT scan suggestive of pneumonia and air bronchograms 10/25/2021: CT scan of the chest, abdomen and pelvis Right inguinal hernia containing small bowel, with apparent associated small bowel obstruction Prominent gaseous distention of fecal material within the colon. Consider small bowel series and barium enema for more definitive evaluation Prominent bilateral lower lobe and lingular basilar atelectasis with air bronchograms Bilateral subacute and/or old rib fractures Multiple compression and burst fractures of thoracic and lumbar spine Blood cultures pending, wean oxygen as tolerated (4) Pancytopenia: Code(s): D61.818 - Other pancytopenia Status: Acute Assessment and Plan: From intensive care documentation: 10/26 Patient has pancytopenia likely partly from bone marrow suppression from chemotherapy and also hemodilution Hemoglobin dropped to 6.9 today. Started ppi IV q.12 hours. Discontinue Lovenox. Monitor hemoglobin. Although patient would benefit from anticoagulation but considering patient is refusing to accept transfusion. In light of drop in hemoglobin I will continue to hold anticoagulation. Monitor platelet count Oncology has ordered a Check iron and vitamin B12 level Patient will be started on Epogen and filgrastim per oncology I spoke to patient in detail and he does not want to accept any blood product transfusion at this time. I explained to him that if his anemia or thrombocytopenia deteriorate to a point that it may become life-threatening [place] still do not want transfusion. He again confirmed that he does not want any transfusion in any situation even if his life depended on it. He does want to be full code and wants resuscitation and intubation if needed. 10/27 spoke to patient again today and he again reiterated that he does not want any blood products transfusion due to moral and ethical reasons as those are obtained from another human body (5) Hyperproteinemia: Code(s): E88.09 - Other disorders of plasma-protein metabolism, not elsewhere classified Status: Acute Assessment and Plan: Hyper paraproteinemia could be related to multiple myeloma -patient is on lenalidomide at home will hold for now given patient has small-bowel obstruction -oncology has seen the patient (6) Anticoagulant long-term use: Code(s): Z79.01 - extermination supervisor (current) use of anticoagulants Status: Acute Assessment and Plan: Patient has a history of recurrent DVTs and is on DVT prophylactic dose of Xarelto He was started on Lovenox but is on hold due to drop in hemoglobin (7) DVT pr
--- NOTE | 2021-10-28 11:12 | PM.PNGS ---
Progress Note: A&P Assessment and Plan (1) Small bowel obstruction: Code(s): K56.609 - Unspecified intestinal obstruction, unspecified as to partial versus complete obstruction Status: Acute Assessment and Plan: resolved, exam benign, jerardo diet and having normal bowel fxn, no acute surgical issues at this point, will s/o, call c ?s, issues Subjective Subjective Date/Time Seen: 10/28/21 11:12 no acute issues, jerardo diet and having normal bowel fxn Review of Systems Review of Systems: All systems reviewed & are unremarkable except as noted in HPI and below Exam Const: General: cooperative, comfortable and ill appearing Resp: Auscultation: diminished lung sounds Cardio: Rate: regular rate Rhythm: regular rhythm GI: Inspection: normal to inspection and non-distended GI Palp: No abdominal tenderness and Yes Soft to palpation Objective Data Vital Signs Vital Signs: Vital Signs - 24 hr 10/27/21 12:00 10/27/21 12:00 10/27/21 12:00 Temperature 36.3 C L Pulse Rate 108 H 108 H Respiratory Rate 21 H Blood Pressure 120/65 Pulse Oximetry 94 94 Oxygen Delivery High Flow Therapy with Na Oxygen Flow Rate 60 Fraction of Inspired Oxygen 40 10/27/21 14:00 10/27/21 15:35 10/27/21 15:57 Temperature Pulse Rate 101 H 90 Respiratory Rate 16 Blood Pressure Pulse Oximetry 98 Oxygen Delivery High Flow Therapy with Na Oxygen Flow Rate 60 Fraction of Inspired Oxygen 40 10/27/21 16:00 10/27/21 16:00 10/27/21 18:00 Temperature 36.3 C L Pulse Rate 96 99 98 Respiratory Rate 28 H Blood Pressure 131/78 Pulse Oximetry 100 Oxygen Delivery Oxygen Flow Rate Fraction of Inspired Oxygen 10/27/21 21:39 10/27/21 21:43 10/27/21 21:54 Temperature Pulse Rate 91 87 87 Respiratory Rate 21 H 19 18 Blood Pressure Pulse Oximetry 100 Oxygen Delivery High Flow Therapy with Na Oxygen Flow Rate 60 Fraction of Inspired Oxygen 40 10/27/21 20:00 10/27/21 20:00 10/27/21 20:00 Temperature 35.9 C L Pulse Rate 109 H 109 H 109 H Respiratory Rate 25 H 25 H Blood Pressure 106/73 Pulse Oximetry 92 92 Oxygen Delivery High Flow Therapy with Na Oxygen Flow Rate 60 Fraction of Inspired Oxygen 40 10/27/21 22:00 10/27/21 22:20 10/27/21 23:50 Temperature Pulse Rate 102 H 106 H 83 Respiratory Rate 21 H Blood Pressure Pulse Oximetry 97 100 Oxygen Delivery High Flow Therapy with Na BiPAP Oxygen Flow Rate 45 Fraction of Inspired Oxygen 45 10/28/21 00:00 10/28/21 00:00 10/28/21 02:01 Temperature Pulse Rate 76 80 Respiratory Rate 20 Blood Pressure Pulse Oximetry 100 98 Oxygen Delivery High Flow Therapy with Na BiPAP Oxygen Flow Rate 60 Fraction of Inspired Oxygen 40 10/28/21 02:02 10/28/21 02:12 10/28/21 02:00 Temperature Pulse Rate 90 86 80 Respiratory Rate 23 H 22 H Blood Pressure Pulse Oximetry Oxygen Delivery Oxygen Flow Rate Fraction of Inspired Oxygen 10/28/21 04:00 10/28/21 04:00 10/28/21 04:00 Temperature 36.7 C Pulse Rate 76 80 Respiratory Rate 20 Blood Pressure 119/69 Pulse Oximetry 98 99 Oxygen Delivery BiPAP Oxygen Flow Rate Fraction of Inspired Oxygen 10/28/21 06:00 10/28/21 05:33 10/28/21 08:07 Temperature 36.5 C Pulse Rate 81 80 84 Respiratory Rate 22 H 20 Blood Pressure 113/70 Pulse Oximetry 99 100 Oxygen Delivery BiPAP Oxygen Flow Rate Fraction of Inspired Oxygen 10/28/21 08:50 10/28/21 08:51 10/28/21 09:03 Temperature Pulse Rate 90 94 90 Respiratory Rate 20 20 Blood Pressure Pulse Oximetry 96 Oxygen Delivery High Flow Therapy with Na Oxygen Flow Rate 45 Fraction of Inspired Oxygen 35 10/28/21 08:00 10/28/21 08:00 10/28/21 10:00 Temperature Pulse Rate 75 96 Respiratory Rate Blood Pressure Pulse Oximetry 100 Oxygen Delivery High Flow Therapy with Na Oxygen Flow Rate
[2021-10-28 11:30] LABS: CRP 1.3 mg/dL (<1.0)
[2021-10-28 11:38] LABS: D Dimer 6.47 ug/mL (<0.48)
[2021-10-28 12:19] LABS: Vitamin B12 > 1000.0 pg/mL (239-931)
[2021-10-28] MEDS: DEXTROSE 5%/0.225% SOD CHL 1,000 ML 75 ML IV CONT (15:34)
--- NOTE | 2021-10-28 16:37 | WPDONCPN ---
Progress Note: A/P - Additional Plan Stage III multiple myeloma status post bone marrow biopsy done on September 05, 2021 that showed 90% of bone marrow involvement with multiple myeloma. Patient started treatment with Revlimid and dexamethasone. So far he has completed cycle 1 of the treatment. Plan is to resume treatment with Revlimid and dexamethasone upon recovery from the COVID pneumonia. I have informed him to follow up with me in the office for blood check prior to restarting treatment with Revlimid and dexamethasone. Pancytopenia. This is secondary to Revlimid and also for multiple myeloma. Patient was started on Neupogen and Procrit with improvement in WBC count and hemoglobin. COVID pneumonia. Patient is slowly improving. History of recurrent DVT. Patient will continue Lovenox prophylaxis. - Time Spent With Patient Total time spent is greater than 50% in coordination of care (as documented) at patient's floor/unit and/or counseling patient: 15 - 25 minutes Subjective Interval history: Multiple myeloma Pancytopenia Review of Systems - Review of Systems Patient has now been transferred out of the ICU. He is feeling better. He is eating better. Denies any fevers and chills. Still has some tiredness and fatigue. No bleeding. He is feeling better and recovering well from the COVID pneumonia. - Neurologic Reports system reviewed and no additional complaints, except as documented, Reports hearing normal, Denies focal weakness, Denies numbness, Denies tingling Exam Vital signs: Temp Pulse Resp BP Pulse Ox O2 Del Method O2 Flow Rate 37.0 C 107 H 18 121/69 97 High Flow Nasal Cannula 10 10/28/21 16:01 10/28/21 16:01 10/28/21 16:01 10/28/21 16:01 10/28/21 16:01 10/28/21 15:25 10/28/21 15:25 FiO2 35 10/28/21 12:00 PN: Objective Data - Labs CBC & Chem 7: 10/28/21 07:15 10/28/21 07:15 Labs: Laboratory Results - last 24 hr 10/27/21 10/27/21 10/28/21 04:32 12:52 07:15 WBC 3.8 L RBC 2.31 L Hgb 7.4 L Hct 24.0 L MCV 103.9 H MCH 32.0 MCHC 30.8 L RDW 15.8 H Plt Count 102 L MPV 9.7 PT INR D-Dimer Sodium Potassium Chloride Carbon Dioxide Anion Gap BUN Creatinine Estim Creat Clear Calc Estimated GFR Glucose Calcium Magnesium % Saturation 40 Total Bilirubin AST ALT Alkaline Phosphatase C-Reactive Protein Total Protein Albumin Vitamin B12 > 1000.0 H Vancomycin Trough 10/28/21 10/28/21 10/28/21 07:15 07:15 07:15 WBC RBC Hgb Hct MCV MCH MCHC RDW Plt Count MPV PT 15.8 H INR 1.3 D-Dimer Sodium 129 L Potassium 3.9 Chloride 104 Carbon Dioxide 25 Anion Gap 0 L BUN 19 Creatinine 0.70 Estim Creat Clear Calc 74 Estimated GFR > 60 Glucose 101 Calcium 7.5 L Magnesium 1.7 % Saturation Total Bilirubin 0.6 AST 22 ALT 27 Alkaline Phosphatase 81 C-Reactive Protein Total Protein 8.0 Albumin 2.7 L Vitamin B12 Vancomycin Trough 5.7 L 10/28/21 10/28/21 07:15 07:15 WBC RBC Hgb Hct MCV MCH MCHC RDW Plt Count MPV PT INR D-Dimer 6.47 H Sodium Potassium Chloride Carbon Dioxide Anion Gap BUN Creatinine Estim Creat Clear Calc Estimated GFR Glucose Calcium Magnesium % Saturation Total Bilirubin AST ALT Alkaline Phosphatase C-Reactive Protein 1.3 H Total Protein Albumin Vitamin B12 Vancomycin Trough
[2021-10-28] MEDS: diazePAM (*CRX) 2 MG TABLET PO (21:22)
[2021-10-29] VITALS (23 sets, daily range): BP systolic 97–152; BP diastolic 57–85; PULSE 85–119; RESP 18–26; TEMP 36.3–36.8; O2SAT 94–100
[2021-10-29] MEDS: IPRATROPIUM BR 0.02% INH SOLN 0.5 MG/2.5 ML VIAL INHALATION ×3 (02:55→20:19)
[2021-10-29] MEDS: LEVALBUTEROL NEB 1.25 MG/3 ML 0.63 MG INHALATION ×3 (02:55→20:22)
[2021-10-29 05:17] LABS: Basophils Percent Auto 0.2 % (0.2-1.2); Eosinophils Percent Auto 0.4 % (0-4.4); Hematocrit 26.8 % (42.0-52.0); Hemoglobin 8.1 g/dL (14.0-18.0); Immature Granulocyte Absolute 0.34 K/mm3 (0.00-0.031); Immature Granulocyte Percent A 7.2 % (0-0.5); Lymphocytes Absolute Auto 0.85 K/mm3 (0.9-3.2); Lymphocytes Percent Auto 17.9 % (18.3-44.2); Mean Corpuscular HGB Conc 30.2 g/dl (32-36); Mean Corpuscular Hemoglobin 31.6 pg (26-34); Mean Corpuscular Volume 104.7 fl (80-100); Mean Platelet Volume 9.8 fl (7.4-10.4); Monocytes Absolute Auto 0.2 K/mm3 (0.1-0.6); Monocytes Percent Auto 4.4 % (2.6-8.5); Neutrophils Absolute Auto 3.3 K/mm3 (1.3-6.7); Neutrophils Percent Auto 69.9 % (45.5-73.1); Platelet Count Result 121 k/mm3 (150-375); Red Blood Count 2.56 M/mm3 (4.6-6.20); Red Cell Distribution Width 15.7 % (11.5-14.5); White Blood Count 4.7 K/mm3 (4.5-10.0)
[2021-10-29] MEDS: DEXTROSE 5%/0.225% SOD CHL 1,000 ML 75 ML IV CONT ×2 (05:23→18:44)
[2021-10-29 05:29] LABS: Alanine Aminotransferase 34 U/L (6-50); Alkaline Phosphatase 102 U/L (38-126); Anion Gap 3 mmol/L (8-16); Aspartate Amino Transferase 22 U/L (17-59); Bilirubin,Total 0.4 mg/dL (0.2-1.3); Blood Urea Nitrogen 17 mg/dL (9-20); Calcium 7.6 mg/dL (8.4-10.2); Carbon Dioxide 26 mmol/L (22-30); Chloride 105 mmol/L (98-107); Estimated CRCL calculation 65 ml/min; Estimated Glomerular Filt Rate > 60; Glucose 102 mg/dL (65-110); Magnesium 1.7 mg/dL (1.6-2.3); Potassium 4.4 mmol/L (3.4-5.0); Sodium 134 mmol/L (137-145)
[2021-10-29 05:37] LABS: INR 1.4; Prothrombin Time 16.5 Seconds (11.1-14.7)
[2021-10-29 06:36] LABS: D Dimer 7.26 ug/mL (<0.48)
[2021-10-29 06:46] LABS: Anisocytosis 1+ (NORMAL); Platelet Estimate Decreased (Adequate)
[2021-10-29] MEDS: ENOXAPARIN 40 MG/0.4 ML SYRINGE SUB-Q (09:22)
[2021-10-29] MEDS: LIDOCAINE 5% PATCH 1 PATCH TRANSDERM (09:23)
[2021-10-29] MEDS: FILGRASTIM-SNDZ 480 MCG/0.8 ML SYRINGE SUB-Q (09:23)
[2021-10-29] MEDS: PANTOPRAZOLE SODIUM IV 40 MG VIAL IV PUSH ×2 (09:33→20:49)
[2021-10-29] MEDS: REMDESIVIR 100 MG/NS 250 ML 100 MG/250 ML BAG 250 MG IVPB (09:39)
--- NOTE | 2021-10-29 10:16 | PM.IMPN ---
Progress Note: A&P Assessment and Plan (1) Small bowel obstruction: Code(s): K56.609 - Unspecified intestinal obstruction, unspecified as to partial versus complete obstruction Status: Acute Assessment and Plan: Small-bowel obstruction with severe constipation status post NG tube decompression, improving, diet advanced 10/29: Regular diet, suspect obstruction resolved, monitor symptoms after meals (2) Pneumonia due to 2019-nCoV: Code(s): U07.1 - COVID-19; J12.82 - Pneumonia due to coronavirus disease 2018 Status: Acute Assessment and Plan: COVID pneumonia, unvaccinated Currently being treated for possible secondary bacterial infection with vancomycin, cefepime azithromycin, started on admission October 25, 2021, not a candidate for DIRK inhibitor Remdesivir started October 26 once renal function improved, end date October 30, to complete 5 doses Dexamethasone started October 26, end date November 04 to complete 10 doses 10/29: MRSA swab came back negative, vanc d/c, switch abx to levaquin today for 3 more days (counting today's dose on the ) to complete 7 day course, last dose October 31 a.m., blood cx NGTD (3) Respiratory failure: Qualifiers: Chronicity: acute Respiratory failure complication: hypoxia Qualified Code(s): J96.01 - Acute respiratory failure with hypoxia Code(s): J96.90 - Respiratory failure, unspecified, unspecified whether with hypoxia or hypercapnia Status: Acute Assessment and Plan: Appears to be multifactorial. History of COPD emphysema, tested positive for COVID-19, CT scan suggestive of pneumonia and air bronchograms 10/25/2021: CT scan of the chest, abdomen and pelvis Right inguinal hernia containing small bowel, with apparent associated small bowel obstruction Prominent gaseous distention of fecal material within the colon. Consider small bowel series and barium enema for more definitive evaluation Prominent bilateral lower lobe and lingular basilar atelectasis with air bronchograms Bilateral subacute and/or old rib fractures Multiple compression and burst fractures of thoracic and lumbar spine Blood cultures pending, wean oxygen as tolerated 10/29: 10L hi ofelia nc, wean as tolerated, blood cultures NGTD (4) Pancytopenia: Code(s): D61.818 - Other pancytopenia Status: Acute Assessment and Plan: From intensive care documentation: 10/26 Patient has pancytopenia likely partly from bone marrow suppression from chemotherapy and also hemodilution Hemoglobin dropped to 6.9 today. Started ppi IV q.12 hours. Discontinue Lovenox. Monitor hemoglobin. Although patient would benefit from anticoagulation but considering patient is refusing to accept transfusion. In light of drop in hemoglobin I will continue to hold anticoagulation. Monitor platelet count Oncology has ordered a Check iron and vitamin B12 level Patient will be started on Epogen and filgrastim per oncology I spoke to patient in detail and he does not want to accept any blood product transfusion at this time. I explained to him that if his anemia or thrombocytopenia deteriorate to a point that it may become life-threatening [place] still do not want transfusion. He again confirmed that he does not want any transfusion in any situation even if his life depended on it. He does want to be full code and wants resuscitation and intubation if needed. 10/27 spoke to patient again today and he again reiterated that he does not want any blood products transfusion due to moral and ethical reasons as those are obtained from another human body (5) Hyperproteinemia: Code(s): E88.09 - Other disorders of plasma-protein metabolism, not elsewhere classified Status: Acute Assessment and Plan: Hyper paraproteinemia could be related to multiple myeloma -patient is on lenalidomide at home will hold for now given patient has small-bowel obstruction -oncology has seen the patient (6) DV
[2021-10-29] MEDS: levoFLOXacin 750 MG TABLET PO (14:56)
[2021-10-29] MEDS: BUDESONIDE RESPULE NEB 0.5 MG/2 ML AMP INHALATION (20:23)
[2021-10-29] MEDS: guaiFENesin 12 HR 600 MG TABCR PO (20:49)
[2021-10-29] MEDS: traZODone HCL 50 MG TABLET PO (20:49)
[2021-10-30] VITALS (24 sets, daily range): BP systolic 112–130; BP diastolic 64–93; PULSE 90–120; RESP 16–30; TEMP 36.1–36.7; O2SAT 98–100
[2021-10-30] MEDS: CYCLOBENZAPRINE HCL 10 MG TABLET PO (00:08)
[2021-10-30 05:13] LABS: Hemoglobin 8.9 g/dL (14.0-18.0); Mean Corpuscular HGB Conc 31.8 g/dl (32-36); Mean Corpuscular Hemoglobin 32.8 pg (26-34); Mean Corpuscular Volume 103.3 fl (80-100); Mean Platelet Volume 9.3 fl (7.4-10.4); Platelet Count Result 157 k/mm3 (150-375); Red Blood Count 2.71 M/mm3 (4.6-6.20); Red Cell Distribution Width 15.7 % (11.5-14.5); White Blood Count 7.2 K/mm3 (4.5-10.0)
[2021-10-30 05:24] LABS: INR 1.4; Prothrombin Time 16.1 Seconds (11.1-14.7)
[2021-10-30 05:33] LABS: Alanine Aminotransferase 33 U/L (6-50); Alkaline Phosphatase 126 U/L (38-126); Anion Gap 4 mmol/L (8-16); Aspartate Amino Transferase 17 U/L (17-59); Bilirubin,Total 0.2 mg/dL (0.2-1.3); Blood Urea Nitrogen 21 mg/dL (9-20); CRP 0.8 mg/dL (<1.0); Calcium 7.4 mg/dL (8.4-10.2); Carbon Dioxide 25 mmol/L (22-30); Chloride 103 mmol/L (98-107); Estimated CRCL calculation 55 ml/min; Estimated Glomerular Filt Rate > 60; Glucose 111 mg/dL (65-110); Magnesium 1.7 mg/dL (1.6-2.3); Potassium 3.5 mmol/L (3.4-5.0); Sodium 132 mmol/L (137-145)
[2021-10-30 05:57] LABS: Band Neutrophils Percent 2 % (0-6); Lymphocytes Absolute Manual 1.15 K/mm3 (1.1-4.5); Monocytes Absolute Manual 0.21 K/mm3 (0.1-0.90); Monocytes Percent Manual 3 % (3-9); Neutrophils Absolute Manual 5.83 K/mm3 (1.3-6.7); Neutrophils Percent Manual 79 % (46-73); Total Cells Counted 100
[2021-10-30 05:58] LABS: Platelet Estimate Adequate (Adequate)
[2021-10-30] MEDS: DEXTROSE 5%/0.225% SOD CHL 1,000 ML 75 ML IV CONT ×2 (08:11→20:27)
[2021-10-30] MEDS: guaiFENesin 12 HR 600 MG TABCR PO ×2 (08:12→20:26)
[2021-10-30] MEDS: FILGRASTIM-SNDZ 480 MCG/0.8 ML SYRINGE SUB-Q (08:12)
[2021-10-30] MEDS: PANTOPRAZOLE SODIUM IV 40 MG VIAL IV PUSH ×2 (08:13→20:26)
[2021-10-30] MEDS: levoFLOXacin 750 MG TABLET PO (08:13)
[2021-10-30] MEDS: BUDESONIDE RESPULE NEB 0.5 MG/2 ML AMP INHALATION ×2 (08:40→20:41)
[2021-10-30] MEDS: LEVALBUTEROL NEB 1.25 MG/3 ML 0.63 MG INHALATION ×3 (08:40→20:37)
[2021-10-30] MEDS: IPRATROPIUM BR 0.02% INH SOLN 0.5 MG/2.5 ML VIAL INHALATION ×3 (08:40→20:41)
[2021-10-30] MEDS: REMDESIVIR 100 MG/NS 250 ML 100 MG/250 ML BAG 250 MG IVPB (12:55)
--- NOTE | 2021-10-30 14:20 | PM.IMPN ---
Progress Note: A&P Assessment and Plan (1) Small bowel obstruction: Code(s): K56.609 - Unspecified intestinal obstruction, unspecified as to partial versus complete obstruction Status: Acute Assessment and Plan: on regular diet. Improved (2) Pneumonia due to 2019-nCoV: Code(s): U07.1 - COVID-19; J12.82 - Pneumonia due to coronavirus disease 2019 Status: Acute Assessment and Plan: COVID pneumonia, unvaccinated Currently being treated for possible secondary bacterial infection with vancomycin, cefepime azithromycin, started on admission October 25, 2021, not a candidate for DIRK inhibitor Remdesivir started October 26 once renal function improved, end date October 30, to complete 5 doses Dexamethasone started October 26, end date November 04 to complete 10 doses 10/29: MRSA swab came back negative, vanc d/c, switch abx to levaquin today for 3 more days (counting today's dose on the ) to complete 7 day course, last dose October 31 a.m., blood cx NGTD (3) Respiratory failure: Qualifiers: Chronicity: acute Respiratory failure complication: hypoxia Qualified Code(s): J96.01 - Acute respiratory failure with hypoxia Code(s): J96.90 - Respiratory failure, unspecified, unspecified whether with hypoxia or hypercapnia Status: Acute Assessment and Plan: secondary to COVID. (4) Pancytopenia: Code(s): D61.818 - Other pancytopenia Status: Acute Assessment and Plan: Monitor, Patient does not want any blood products. (5) Hyperproteinemia: Code(s): E88.09 - Other disorders of plasma-protein metabolism, not elsewhere classified Status: Acute Assessment and Plan: recently diagnosed with multiple myeloma. Follow-up outpatient Hematology Oncology Additional Plan Subjective Date/time seen: 10/30/21 14:20 No new complaints Exam Narrative: General: No acute distress, alert and oriented per baseline HEENT: Atraumatic, normocephalic, mucous membranes moist CV: Regular rate and rhythm, S1, S2 Lungs: No wheezes noted, diminished breath sounds throughout, no rhonchi, rales Abdomen: Soft, nontender, nondistended Extremities: Normal to inspection Skin: No rashes noted, no lesions or wounds seen Psych: Euthymic, normal affect Const: General: cooperative, comfortable, no acute distress, well developed, alert, awake and ill appearing Nutritional Appearance: average body habitus Orientation/consciousness: patient oriented x3 HENMT: Head: normal to inspection, normocephalic and atraumatic Ears: hearing grossly normal bilaterally Face and sinus: normal facial exam Eyes: General: appearance normal, both eyes and all related structures Pupils: Equal, round and reactive pupils present EOM: EOMs intact bilaterally Neck: Neck: full ROM, no lymphadenopathy and no JVD Thyroid: thyroid normal Lymphatic: no lymphadenopathy noted Resp: Effort & Inspection: no audible wheezes, tachypneic, no tripod positioning and other ( on BiPAP) Auscultation: diminished lung sounds Cardio: Jugular venous distension: no JVD Rate: regular rate Rhythm: regular rhythm Heart sounds: S1 normal heart sound present and S2 normal heart sound present GI: Inspection: distended : General: Yes deferred Skin: Rashes: no rashes Wounds: no wounds Neuro: General: patient oriented x3, CN's II-XI intact bilaterally and Unable to assess gait Cranial nerves: Yes CN's II-XII intact bilaterally and Yes Equal, round and reactive pupils present Cognition (Neuro): normal cognition Speech: normal speech Gait exam (Neuro): Unable to assess gait Motor exam (neuro): 5/5 motor strength present throughout Extrem: General: normal to inspection, full ROM, no joint enlargement and no pedal edema Objective Data Vital Signs Vital Signs: Vital Signs - 24 hr 10/29/21 16:40 10/29/21 16:00 10/29/21 16:00 Temperature 97.9 F Pulse Rate 119 H 116 H 85 Respirat
[2021-10-30] MEDS: RIVAROXABAN 10 MG TABLET 20 MG PO (18:44)
[2021-10-30] MEDS: traZODone HCL 50 MG TABLET PO (20:26)
[2021-10-31] VITALS (26 sets, daily range): BP systolic 102–139; BP diastolic 56–77; PULSE 68–117; RESP 14–26; TEMP 36.2–36.9; O2SAT 97–100
[2021-10-31] MEDS: IPRATROPIUM BR 0.02% INH SOLN 0.5 MG/2.5 ML VIAL INHALATION ×4 (02:29→20:00)
[2021-10-31] MEDS: LEVALBUTEROL NEB 1.25 MG/3 ML 0.63 MG INHALATION ×4 (02:30→20:00)
--- NOTE | 2021-10-31 02:32 | PC.NURSE ---
patient is extremely anxious. afraid that if he falls asleep that he will rip his o2 off and slip into a coma and . i had to reassure him that we monitor him via telemetry and we would see something going wrong before that happened.
[2021-10-31 05:20] LABS: Hematocrit 26.4 % (42.0-52.0); Hemoglobin 8.5 g/dL (14.0-18.0); Mean Corpuscular HGB Conc 32.2 g/dl (32-36); Mean Corpuscular Hemoglobin 33.1 pg (26-34); Mean Corpuscular Volume 102.7 fl (80-100); Mean Platelet Volume 8.8 fl (7.4-10.4); Platelet Count Result 156 k/mm3 (150-375); Red Blood Count 2.57 M/mm3 (4.6-6.20); Red Cell Distribution Width 16.1 % (11.5-14.5); White Blood Count 8.8 K/mm3 (4.5-10.0)
[2021-10-31 05:35] LABS: D Dimer 2.95 ug/mL (<0.48)
[2021-10-31 05:38] LABS: Alanine Aminotransferase 25 U/L (6-50); Albumin Level 2.6 g/dL (3.5-5.1); Alkaline Phosphatase 138 U/L (38-126); Anion Gap 2 mmol/L (8-16); Aspartate Amino Transferase 17 U/L (17-59); Bilirubin,Total 0.1 mg/dL (0.2-1.3); Blood Urea Nitrogen 21 mg/dL (9-20); Calcium 7.3 mg/dL (8.4-10.2); Carbon Dioxide 27 mmol/L (22-30); Chloride 103 mmol/L (98-107); Estimated CRCL calculation 55 ml/min; Estimated Glomerular Filt Rate > 60; Glucose 126 mg/dL (65-110); Magnesium 1.7 mg/dL (1.6-2.3); Potassium 3.4 mmol/L (3.4-5.0); Sodium 132 mmol/L (137-145)
[2021-10-31 05:54] LABS: Acanthocytes 1+ (NORMAL); Anisocytosis 1+ (NORMAL); Band Neutrophils Percent 6 % (0-6); Monocytes Absolute Manual 0.35 K/mm3 (0.1-0.90); Monocytes Percent Manual 4 % (3-9); Neutrophils Absolute Manual 6.24 K/mm3 (1.3-6.7); Neutrophils Percent Manual 65 % (46-73); Ovalocytes 1+ (NORMAL); Platelet Estimate Adequate (Adequate); Total Cells Counted 100
[2021-10-31] MEDS: DEXTROSE 5%/0.225% SOD CHL 1,000 ML 75 ML IV CONT ×2 (08:21→20:57)
[2021-10-31] MEDS: LIDOCAINE 5% PATCH 1 PATCH TRANSDERM (08:23)
[2021-10-31] MEDS: guaiFENesin 12 HR 600 MG TABCR PO ×2 (08:23→20:50)
[2021-10-31] MEDS: levoFLOXacin 750 MG TABLET PO (08:23)
[2021-10-31] MEDS: PANTOPRAZOLE SODIUM IV 40 MG VIAL IV PUSH ×2 (08:23→20:51)
[2021-10-31] MEDS: BUDESONIDE RESPULE NEB 0.5 MG/2 ML AMP INHALATION ×2 (08:40→20:00)
[2021-10-31] MEDS: HYDROcodone/acetaminophen (*CRX) 5-325 MG TABLET 1 TAB PO (10:54)
--- NOTE | 2021-10-31 11:50 | PCPTNOTE ---
Attempted PT evaluation, patient reported he is not able to participate in therapy because I'm not ready. RN aware. Will follow.
--- NOTE | 2021-10-31 12:14 | PM.IMPN ---
Progress Note: A&P Assessment and Plan (1) Small bowel obstruction: Code(s): K56.609 - Unspecified intestinal obstruction, unspecified as to partial versus complete obstruction Status: Acute Assessment and Plan: on regular diet. Improved (2) Pneumonia due to 2019-nCoV: Code(s): U07.1 - COVID-19; J12.82 - Pneumonia due to coronavirus disease 2019 Status: Acute Assessment and Plan: COVID pneumonia, unvaccinated Currently being treated for possible bacterial infection as well. With Levaquin continue dexamethasone. Now holding on 3liters. Doing much better (3) Respiratory failure: Qualifiers: Chronicity: acute Respiratory failure complication: hypoxia Qualified Code(s): J96.01 - Acute respiratory failure with hypoxia Code(s): J96.90 - Respiratory failure, unspecified, unspecified whether with hypoxia or hypercapnia Status: Acute Assessment and Plan: improved (4) Pancytopenia: Code(s): D61.818 - Other pancytopenia Status: Acute Assessment and Plan: Monitor, Patient does not want any blood products. (5) Hyperproteinemia: Code(s): E88.09 - Other disorders of plasma-protein metabolism, not elsewhere classified Status: Acute Assessment and Plan: recently diagnosed with multiple myeloma. Follow-up outpatient Hematology Oncology Additional Plan Subjective Date/time seen: 10/31/21 12:14 Significant improvement in respiratory status. Now on 3liters nasal cannula. Exam Narrative: General: No acute distress, alert and oriented per baseline HEENT: Atraumatic, normocephalic, mucous membranes moist CV: Regular rate and rhythm, S1, S2 Lungs: No wheezes noted, diminished breath sounds throughout, no rhonchi, rales Abdomen: Soft, nontender, nondistended Extremities: Normal to inspection Skin: No rashes noted, no lesions or wounds seen Psych: Euthymic, normal affect Const: General: cooperative, comfortable, no acute distress, well developed, alert, awake and ill appearing Nutritional Appearance: average body habitus Orientation/consciousness: patient oriented x3 HENMT: Head: normal to inspection, normocephalic and atraumatic Ears: hearing grossly normal bilaterally Face and sinus: normal facial exam Eyes: General: appearance normal, both eyes and all related structures Pupils: Equal, round and reactive pupils present EOM: EOMs intact bilaterally Neck: Neck: full ROM, no lymphadenopathy and no JVD Thyroid: thyroid normal Lymphatic: no lymphadenopathy noted Resp: Effort & Inspection: no audible wheezes, tachypneic, no tripod positioning and other ( on BiPAP) Auscultation: diminished lung sounds Cardio: Jugular venous distension: no JVD Rate: regular rate Rhythm: regular rhythm Heart sounds: S1 normal heart sound present and S2 normal heart sound present GI: Inspection: distended : General: Yes deferred Skin: Rashes: no rashes Wounds: no wounds Neuro: General: patient oriented x3, CN's II-XI intact bilaterally and Unable to assess gait Cranial nerves: Yes CN's II-XII intact bilaterally and Yes Equal, round and reactive pupils present Cognition (Neuro): normal cognition Speech: normal speech Gait exam (Neuro): Unable to assess gait Motor exam (neuro): 5/5 motor strength present throughout Extrem: General: normal to inspection, full ROM, no joint enlargement and no pedal edema Objective Data Vital Signs Vital Signs: Vital Signs - 24 hr 10/30/21 14:13 10/30/21 14:26 10/30/21 14:00 Temperature Pulse Rate 106 H 120 H 106 H Respiratory Rate 20 24 H Blood Pressure Pulse Oximetry Oxygen Delivery Oxygen Flow Rate Fraction of Inspired Oxygen 10/30/21 16:00 10/30/21 16:00 10/30/21 16:00 Temperature 98.1 F Pulse Rate 110 H 110 H Respiratory Rate 20 Blood Pressure 124/64 Pulse Oximetry 100 100 Oxygen Delivery Nasal Cannula Oxyg
--- NOTE | 2021-10-31 14:43 | PCOTNOTE ---
Attempted to see pt. for occupational therapy evaluation. Pt. refused to participate at this time, stating tomorrow would be better.
--- NOTE | 2021-10-31 15:10 | PC.NURSE ---
This patient, Tommy Antony, was transferred to [ [id number]] on 10/31/21 at 1510. Personal belongings sent with patient. Report given to [ISAI Coleman @ [phone] ]. Appropriate documentation sent with patient.
--- NOTE | 2021-10-31 15:27 | PC.NURSE ---
This patient, Tommy Antony, was received from [imu ] on 10/31/21 at 1525. Patient/family oriented to unit policies and routines
[2021-10-31] MEDS: RIVAROXABAN 10 MG TABLET 20 MG PO (16:33)
[2021-10-31] MEDS: traZODone HCL 50 MG TABLET PO (20:50)
[2021-11-01] VITALS (10 sets, daily range): BP systolic 102–114; BP diastolic 60–72; PULSE 72–111; RESP 16–26; TEMP 36.4–36.6; O2SAT 97–98
[2021-11-01 06:14] LABS: Eosinophils Percent Auto 0.2 % (0-4.4); Hematocrit 28.4 % (42.0-52.0); Hemoglobin 8.8 g/dL (14.0-18.0); Immature Granulocyte Absolute 0.15 K/mm3 (0.00-0.031); Immature Granulocyte Percent A 1.7 % (0-0.5); Lymphocytes Absolute Auto 1.45 K/mm3 (0.9-3.2); Lymphocytes Percent Auto 16.9 % (18.3-44.2); Mean Corpuscular Hemoglobin 32.6 pg (26-34); Mean Corpuscular Volume 105.2 fl (80-100); Mean Platelet Volume 9.4 fl (7.4-10.4); Monocytes Absolute Auto 0.6 K/mm3 (0.1-0.6); Monocytes Percent Auto 7.2 % (2.6-8.5); Neutrophils Absolute Auto 6.4 K/mm3 (1.3-6.7); Nucleated Red Blood Cells Absolute Auto 0.1 K/mm3 (0.0-0.012); Nucleated Red Blood Cells Perc 0.9 % (0.0-0.2); Platelet Count Result 182 k/mm3 (150-375); Red Cell Distribution Width 16.4 % (11.5-14.5); White Blood Count 8.6 K/mm3 (4.5-10.0)
[2021-11-01 06:33] LABS: Alanine Aminotransferase 22 U/L (6-50); Alkaline Phosphatase 172 U/L (38-126); Anion Gap 4 mmol/L (8-16); Aspartate Amino Transferase 19 U/L (17-59); Bilirubin,Total 0.2 mg/dL (0.2-1.3); Blood Urea Nitrogen 20 mg/dL (9-20); CRP 1.1 mg/dL (<1.0); Calcium 7.5 mg/dL (8.4-10.2); Carbon Dioxide 25 mmol/L (22-30); Chloride 102 mmol/L (98-107); Estimated CRCL calculation 61 ml/min; Estimated Glomerular Filt Rate > 60; Glucose 95 mg/dL (65-110); Potassium 3.4 mmol/L (3.4-5.0); Sodium 131 mmol/L (137-145)
[2021-11-01 06:57] LABS: Anisocytosis 1+ (NORMAL); Macrocytosis 1+ (NORMAL); Platelet Estimate Adequate (Adequate)
[2021-11-01 06:58] LABS: Atypical Lymphocytes Present; Hypochromasia 1+ (NORMAL)
[2021-11-01] MEDS: LIDOCAINE 5% PATCH 2 PATCH TRANSDERM (08:14)
[2021-11-01] MEDS: guaiFENesin 12 HR 600 MG TABCR PO ×2 (08:14→21:43)
[2021-11-01] MEDS: BUDESONIDE RESPULE NEB 0.5 MG/2 ML AMP INHALATION ×2 (08:41→20:04)
[2021-11-01] MEDS: IPRATROPIUM BR 0.02% INH SOLN 0.5 MG/2.5 ML VIAL INHALATION ×3 (08:41→20:04)
[2021-11-01] MEDS: LEVALBUTEROL NEB 1.25 MG/3 ML 0.63 MG INHALATION ×3 (08:41→20:04)
--- NOTE | 2021-11-01 10:19 | PM.IMPN ---
Progress Note: A&P Assessment and Plan (1) Small bowel obstruction: Code(s): K56.609 - Unspecified intestinal obstruction, unspecified as to partial versus complete obstruction Status: Acute Assessment and Plan: on regular diet. Improved (2) Pneumonia due to 2019-nCoV: Code(s): U07.1 - COVID-19; J12.82 - Pneumonia due to coronavirus disease 2019 Status: Acute Assessment and Plan: COVID pneumonia, unvaccinated Currently being treated for possible bacterial infection as well. With Levaquin continue dexamethasone. Now holding on 3liters. Doing much better (3) Respiratory failure: Qualifiers: Chronicity: acute Respiratory failure complication: hypoxia Qualified Code(s): J96.01 - Acute respiratory failure with hypoxia Code(s): J96.90 - Respiratory failure, unspecified, unspecified whether with hypoxia or hypercapnia Status: Acute Assessment and Plan: improved (4) Pancytopenia: Code(s): D61.818 - Other pancytopenia Status: Acute Assessment and Plan: Monitor, Patient does not want any blood products. (5) Hyperproteinemia: Code(s): E88.09 - Other disorders of plasma-protein metabolism, not elsewhere classified Status: Acute Assessment and Plan: recently diagnosed with multiple myeloma. Follow-up outpatient Hematology Oncology (6) Hyponatremia: Code(s): E87.1 - Hypo-osmolality and hyponatremia Status: Acute Assessment and Plan: Mild. Could be from the D5 half NS. We will stop the fluids. monitor BMP Additional Plan Subjective Date/time seen: 11/01/21 10:19 Interval history: Patient sitting up in bed eating. Diet has been advanced. He denies any abdominal pain. 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 He declined ear plugs. He states his diaphragm spasms appear improved from yesterday. No overnight events noted. No chest pain or shortness of breath. No nausea, vomiting or diarrhea. No fevers or chills. Exam Narrative: General: No acute distress, alert and oriented per baseline HEENT: Atraumatic, normocephalic, mucous membranes moist CV: Regular rate and rhythm, S1, S2 Lungs: No wheezes noted, diminished breath sounds throughout, no rhonchi, rales Abdomen: Soft, nontender, nondistended Extremities: Normal to inspection Skin: No rashes noted, no lesions or wounds seen Psych: Euthymic, normal affect Const: General: cooperative, comfortable, no acute distress, well developed, alert, awake and ill appearing Nutritional Appearance: average body habitus Orientation/consciousness: patient oriented x3 HENMT: Head: normal to inspection, normocephalic and atraumatic Ears: hearing grossly normal bilaterally Face and sinus: normal facial exam Eyes: General: appearance normal, both eyes and all related structures Pupils: Equal, round and reactive pupils present EOM: EOMs intact bilaterally Neck: Neck: full ROM, no lymphadenopathy and no JVD Thyroid: thyroid normal Lymphatic: no lymphadenopathy noted Resp: Effort & Inspection: no audible wheezes, tachypneic, no tripod positioning and other ( on BiPAP) Auscultation: diminished lung sounds Cardio: Jugular venous distension: no JVD Rate: regular rate Rhythm: regular rhythm Heart sounds: S1 normal heart sound present and S2 normal heart sound present GI: Inspection: distended : General: Yes deferred Skin: Rashes: no rashes Wounds: no wounds Neuro: General: patient oriented x3, CN's II-XI intact bilaterally and Unable to assess gait Cranial nerves: Yes CN's II-XII intact bilaterally and Yes Equal, round and reactive pupils present Cognition (Neuro): normal cognition Speech: normal speech Gait exam (Neuro): Unable to assess gait Motor exam (neuro): 5/5 motor strength present throughout Extrem: General: normal to inspection, full ROM
[2021-11-01] MEDS: PANTOPRAZOLE SODIUM IV 40 MG VIAL IV PUSH ×2 (13:05→21:43)
--- NOTE | 2021-11-01 13:16 | PCNWS ---
Weekly nutritional screen. Patient is tolerating current diet with adequate intake. No weight loss reported. No nutritional needs at this time. Pt is eating close to 100% of his meals and does not report any recent wt loss. Nursing reports he is eating fine and sometimes hoards his food, eating it throughout the day. Agree with diet orders.
--- NOTE | 2021-11-01 13:36 | PCNSR ---
On 11/01/21, the student, Rosio Chau, provided care and completed [facility] documentation on this patient. I have reviewed the student's documentation and agree with the findings.
[2021-11-01] MEDS: RIVAROXABAN 10 MG TABLET 20 MG PO (17:24)
[2021-11-01] MEDS: traZODone HCL 50 MG TABLET PO (21:43)
[2021-11-02] VITALS (7 sets, daily range): BP systolic 109–113; BP diastolic 65–77; PULSE 87–105; RESP 16–20; TEMP 36.1–36.6; O2SAT 93–98
[2021-11-02] MEDS: IPRATROPIUM BR 0.02% INH SOLN 0.5 MG/2.5 ML VIAL INHALATION ×2 (02:15→08:39)
[2021-11-02] MEDS: LEVALBUTEROL NEB 1.25 MG/3 ML 0.63 MG INHALATION ×2 (02:15→08:39)
[2021-11-02 06:23] LABS: Basophils Absolute Auto 0.1 K/mm3 (0.0-0.1); Basophils Percent Auto 0.7 % (0.2-1.2); Hematocrit 28.7 % (42.0-52.0); Hemoglobin 9.1 g/dL (14.0-18.0); Immature Granulocyte Absolute 0.12 K/mm3 (0.00-0.031); Immature Granulocyte Percent A 1.6 % (0-0.5); Lymphocytes Absolute Auto 1.26 K/mm3 (0.9-3.2); Lymphocytes Percent Auto 17.2 % (18.3-44.2); Mean Corpuscular HGB Conc 31.7 g/dl (32-36); Mean Corpuscular Hemoglobin 33.5 pg (26-34); Mean Corpuscular Volume 105.5 fl (80-100); Mean Platelet Volume 8.8 fl (7.4-10.4); Monocytes Absolute Auto 0.4 K/mm3 (0.1-0.6); Monocytes Percent Auto 5.6 % (2.6-8.5); Neutrophils Absolute Auto 5.5 K/mm3 (1.3-6.7); Neutrophils Percent Auto 74.9 % (45.5-73.1); Nucleated Red Blood Cells Absolute Auto 0.1 K/mm3 (0.0-0.012); Nucleated Red Blood Cells Perc 0.7 % (0.0-0.2); Platelet Count Result 189 k/mm3 (150-375); Red Blood Count 2.72 M/mm3 (4.6-6.20); Red Cell Distribution Width 16.8 % (11.5-14.5); White Blood Count 7.3 K/mm3 (4.5-10.0)
[2021-11-02 06:31] LABS: Alanine Aminotransferase 20 U/L (6-50); Albumin Level 2.8 g/dL (3.5-5.1); Alkaline Phosphatase 190 U/L (38-126); Anion Gap 2 mmol/L (8-16); Aspartate Amino Transferase 16 U/L (17-59); Bilirubin,Total 0.2 mg/dL (0.2-1.3); Blood Urea Nitrogen 25 mg/dL (9-20); Calcium 7.7 mg/dL (8.4-10.2); Carbon Dioxide 27 mmol/L (22-30); Chloride 104 mmol/L (98-107); Estimated CRCL calculation 55 ml/min; Estimated Glomerular Filt Rate > 60; Glucose 100 mg/dL (65-110); Potassium 3.6 mmol/L (3.4-5.0); Sodium 133 mmol/L (137-145)
[2021-11-02 06:55] LABS: Anisocytosis 1+ (NORMAL); Macrocytosis 1+ (NORMAL); Platelet Estimate Adequate (Adequate)
[2021-11-02 07:09] LABS: D Dimer 1.99 ug/mL (<0.48)
[2021-11-02] MEDS: BUDESONIDE RESPULE NEB 0.5 MG/2 ML AMP INHALATION (08:39)
[2021-11-02] MEDS: guaiFENesin 12 HR 600 MG TABCR PO (08:53)
[2021-11-02] MEDS: LIDOCAINE 5% PATCH 2 PATCH TRANSDERM (08:54)
--- NOTE | 2021-11-02 11:39 | PM.DS ---
DS: Admitting Diagnosis Discharge Date November 02, 2021 Admitting Diagnosis Respiratory failure secondary to COVID DS: Discharge Diagnosis Discharge Diagnosis (1) Small bowel obstruction: Code(s): K56.609 - Unspecified intestinal obstruction, unspecified as to partial versus complete obstruction Status: Acute Assessment and Plan: Improved. Eating a diet. (2) Pneumonia due to 2019-nCoV: Code(s): U07.1 - COVID-19; J12.82 - Pneumonia due to coronavirus disease 2019 Status: Acute Assessment and Plan: Patient was admitted for hypoxia secondary to COVID pneumonia. He was initially fine significant respiratory support however now is on room air and doing just fine. Patient be continued on dexamethasone on discharge. (3) Respiratory failure: Qualifiers: Chronicity: acute Respiratory failure complication: hypoxia Qualified Code(s): J96.01 - Acute respiratory failure with hypoxia Code(s): J96.90 - Respiratory failure, unspecified, unspecified whether with hypoxia or hypercapnia Status: Acute Assessment and Plan: Resolved. Patient does have underlying lung disease which may lead to needing oxygen in the future. (4) Pancytopenia: Code(s): D61.818 - Other pancytopenia Status: Acute Assessment and Plan: Monitor, Patient does not want any blood products. Has refused this on numerous occasions. (5) Hyperproteinemia: Code(s): E88.09 - Other disorders of plasma-protein metabolism, not elsewhere classified Status: Acute Assessment and Plan: recently diagnosed with multiple myeloma. Follow-up outpatient Hematology Oncology (6) Hyponatremia: Code(s): E87.1 - Hypo-osmolality and hyponatremia Status: Acute Assessment and Plan: Monitor as an outpatient DS: Summary Hospital Course Reason for hospitalization: Respiratory failure Hospital Course: See discharge planning diagnoses Time Spent with Patient Time attestation: Total time spent providing and/or coordinating discharge services: Exam Narrative: General: No acute distress, alert and oriented per baseline HEENT: Atraumatic, normocephalic, mucous membranes moist CV: Regular rate and rhythm, S1, S2 Lungs: No wheezes noted, diminished breath sounds throughout, no rhonchi, rales Abdomen: Soft, nontender, nondistended Extremities: Normal to inspection Skin: No rashes noted, no lesions or wounds seen Psych: Euthymic, normal affect Const: General: cooperative, comfortable, no acute distress, well developed, alert, awake and ill appearing Nutritional Appearance: average body habitus Orientation/consciousness: patient oriented x3 HENMT: Head: normal to inspection, normocephalic and atraumatic Ears: hearing grossly normal bilaterally Face and sinus: normal facial exam Eyes: General: appearance normal, both eyes and all related structures Pupils: Equal, round and reactive pupils present EOM: EOMs intact bilaterally Neck: Neck: full ROM, no lymphadenopathy and no JVD Thyroid: thyroid normal Lymphatic: no lymphadenopathy noted Resp: Effort & Inspection: no audible wheezes, tachypneic, no tripod positioning and other ( on BiPAP) Auscultation: diminished lung sounds Cardio: Jugular venous distension: no JVD Rate: regular rate Rhythm: regular rhythm Heart sounds: S1 normal heart sound present and S2 normal heart sound present GI: Inspection: distended : General: Yes deferred Skin: Rashes: no rashes Wounds: no wounds Neuro: General: patient oriented x3, CN's II-XI intact bilaterally and Unable to assess gait Cranial nerves: Yes CN's II-XII intact bilaterally and Yes Equal, round and reactive pupils present Cognition (Neuro): normal cognition Speech: normal speech Gait exam (Neuro): Unable to assess gait Motor exam (neuro): 5/5 motor strength present throughout Extrem: General: normal to inspection, full ROM, no joint enlargem
[2021-11-15 09:02] LABS: Glucose Point of Care 125 mg/dl (65-105)
== END 2021-11-02 14:45 | DRG 137 ==
LOC: ANHED 19:43 → ANHICU 10-25 01:12 → ANH3MEDSUR 11-01 07:16 → ANHICU 11-03 09:17 → ANHIMU 11-03 09:17
PROVIDERS: Internal Medicine; Internal Medicine Hematology & Oncology; Student in an Organized Health Care Education/Training Program; Admitting Provider Internal Medicine; Emergency Provider Emergency Medicine; PCP Internal Medicine; Visit Provider Internal Medicine
DX: U07.1 COVID-19 (principal); J96.01 Acute respiratory failure with hypoxia; N40.0 Benign prostatic hyperplasia without lower urinary tract symptoms; K56.609 Unspecified intestinal obstruction, unspecified as to partial versus complete obstruction; I87.8 Other specified disorders of veins; E11.9 Type 2 diabetes mellitus without complications; I10 Essential (primary) hypertension; J12.82 Pneumonia due to coronavirus disease 2019; N17.9 Acute kidney failure, unspecified; J43.9 Emphysema, unspecified; M81.0 Age-related osteoporosis without current pathological fracture; J15.9 Unspecified bacterial pneumonia; C90.00 Multiple myeloma not having achieved remission; D53.9 Nutritional anemia, unspecified; E88.09 Other disorders of plasma-protein metabolism, not elsewhere classified; I21.A1 Myocardial infarction type 2; Z86.718 Personal history of other venous thrombosis and embolism; Z79.01 Long term (current) use of anticoagulants; D72.819 Decreased white blood cell count, unspecified; D63.0 Anemia in neoplastic disease; N39.0 Urinary tract infection, site not specified; D61.810 Antineoplastic chemotherapy induced pancytopenia; T45.1X5A Adverse effect of antineoplastic and immunosuppressive drugs, initial encounter; Z28.310 Unvaccinated for COVID-19; K59.00 Constipation, unspecified; K40.90 Unilateral inguinal hernia, without obstruction or gangrene, not specified as recurrent
CPT/HCPCS: 36415; 36600; 71045; 71275; 74019; 74177; 74270; 80053; 80202; 81001; 82607; 82728; 82746; 82805; 82948; 83540; 83550; 83690; 83735; 84100; 85025; 85027; 85380; 85610; 85730; 86140; 86850; 86900; 86901; 87040; 87081; 93005; 94003; 94640; 94660; 96361; 96365; 96367; 97161; 97165; 99285; A9270; C9113; C9803; G0378; G0379; J0248; J0456; J0692; J1100; J1650; J1940; J3370; J7030; J7040; J7120; J8540; Q5101; Q5105; Q9967; U0003; U0005

== ENCOUNTER 2022-02-22 11:08 | Outpatient (CLI) | payer OTHER, SELFPAY ==
[2022-02-22 13:59] LABS: NT Pro B Type Natriuretic Pept 28 pg/mL (5-100)
[2022-02-22 14:15] LABS: Creatinine Urine 124.7 mg/dL
[2022-02-22 14:19] LABS: MALB Creatinine Ratio 47.4 mg/g (0-30); Microalbumin Urine Random 59.1 mg/L (0-16.7)
== END 2022-02-22 11:09 | disposition home or self-care (01) ==
LOC: ANHLAB 11:10
PROVIDERS: PCP Internal Medicine; Visit Provider Internal Medicine Cardiovascular Disease
DX: G47.30 Sleep apnea, unspecified (principal); R73.09 Other abnormal glucose; I51.9 Heart disease, unspecified; I82.90 Acute embolism and thrombosis of unspecified vein; I87.2 Venous insufficiency (chronic) (peripheral); E61.1 Iron deficiency; Z13.9 Encounter for screening, unspecified; R80.9 Proteinuria, unspecified; Z20.89 Contact with and (suspected) exposure to other communicable diseases; Z79.01 Long term (current) use of anticoagulants
CPT/HCPCS: 36415; 82043; 83880

== ENCOUNTER 2022-03-20 00:33 | Day surgery (SDC) | payer OTHER, SELFPAY ==
[2022-03-14 08:55] VITALS: BMI 28.0
--- NOTE | 2022-03-14 09:11 | PC.NURSE ---
PRE-OP INSTRUCTIONS, PLEASE READ CAREFULLY Report to the Outpatient Waiting Room, entrance under the green pavilion located off [facility], at time _0800_ on date _03/20/22_. Planned Procedure Time: _1000_. Time changes happen often and if your time is changed the preop area will call you the afternoon before. - You and your visitor will be asked to self-screen and do not enter if you have any COVID symptoms. - Only one visitor is requested with a max of two and NO children visitors are allowed at this time. - The patient visitor may be requested to leave or wait in car when not with patient due to distancing restrictions. - A mask is optional within the hospital. Patients may have clear liquids (water, carbonated beverages, clear teas, apple juice) until 3 hours prior to surgery with a maximum of 20 ounces. - No food from midnight until time of surgery Take the following medications with a SIP of water the morning of surgery: _DEXAMETHASONE, LENALIDOMIDE _ Medications to discontinue per DR. HERNANDEZ - _XARELTO, Date to take last dose 03/12/22_ Medications to discontinue per ANESTHESIA - _PROBIOTIC 3 DAYS PRIOR TO SURGERY, Date to take last dose 03/16/22_ Please no make-up, nail mongolian, hairspray, perfume, deodorant, or body powder the day of surgery. No jewelry (including any body piercings) or valuables the day of surgery, leave them at home. Please take a shower or bath the night before, or the morning of, surgery with an antibacterial soap. Wear comfortable, loose fitting clothing. - Jewelry must be removed prior to entering the operating room. Rings and piercings that are not removed may be cut off. - The hospital will not accept responsibility for valuables. - Please leave all valuables, including medications, at home the day of surgery. If you are going home after surgery, a licensed class b driver must drive you home. - NO public transportation without another adult if you receive anesthesia. - We recommend that an adult stay with you for 24 hours following discharge. - We also recommend that you do not drive, make important decision, drink alcoholic beverages, or take any drugs that were not prescribed by your health care provider for at least 24 hours after your discharge time. Follow any additional instructions given to you from your surgeon. If you or anyone in your household have experienced Covid symptoms in the past week, please notify your surgeon or the nurse liaison at the phone number below for possible testing. Telephone instructions given to and asked if any additional questions and then verbalized understanding. Patient advised to call surgeon office or pre surgery nurse liaison [phone] if any additional questions.
--- NOTE | ~2022-03-20 | XR_ITS ---
XR chest port-a-cath/central DATE: 03/20/2022 15:27 INDICATION: Port-A-Cath insertion TECHNIQUE: 03/12/2022 portable upright AP chest at 1523 hours COMPARISON: 10/31/2021 portable AP chest FINDINGS: Interval placement of left subclavian Port-A-Cath, catheter tip overlying the superior vena cava. Cardiomegaly. Aortic tortuosity. There is pulmonary vascular redistribution which may indicate pulmonary venous hypertension. Left basilar infiltrate and/or atelectasis. No pneumothorax is detected. Diffuse osteopenia. Osteoarthritic change at the glenohumeral joints. IMPRESSION: Left subclavian Port-A-Cath catheter tip overlying superior vena cava; no evidence of pne umothorax Left basilar infiltrate or atelectasis Cardiomegaly Pulmonary vascular redistribution, which may indicate mild pulmonary venous hypertension Osteopenia Reviewed, dictated and finalized at [facility]. Reviewed, dictated and finalized at [facility]. TRIC REFRIGERATOR SERVICER IMPRESSION: Left subclavian Port-A-Cath catheter tip overlying superior vena ca va; no evidence of pneumothorax Left basilar infiltrate or atelectasis Cardiomegaly Pulmonary vascular redistribution, which may indicate mild pulmonary venous hyp ertension Osteopenia
--- NOTE | ~2022-03-20 | XR_ITS ---
XR fl guide central line place 03/20/2022 15:05 Indication: Portacatheter placement Procedure: Fluoroscopic images of the upper chest. 60 seconds of fluoroscopy. Comparison: Chest x-ray dated 10/31/2021. Findings: Interval placement of left subclavian erik catheter, tip not well visualized, although lik felicita in the SVC. Evaluation for pneumothorax limited by resolution. Impression: 1: Interval placement of left subclavian erik catheter, tip likely in the SVC. Reviewed, dictated and finalized at location [facility]. RS INSPECTOR Impression: 1: Interval placement of left subclavian erik catheter, tip likely in the SVC.
--- NOTE | 2022-03-20 13:15 | WPDANESEPPF ---
Anes - Initial Pre Proc Eval Procedure: Operation Date: 03/20/22 14:30 Proposed Procedures p Insertion Suki Cath - Maddie Hamilton MD Date/Time: 03/20/22 13:15 Surgeon: Maddie Hamilton MD Pre Op Diagnosis: Mult Myeloma Patient Data Age: 71 Gender: M Height: 1.7 m Weight: 81.36 kg Allergies Allergy/AdvReac Type Severity Reaction Status Date / Time Penicillins Allergy Intermediate Rash Verified 03/20/22 12:47 Home Medications Medication Instructions Recorded Confirmed Type cholecalciferol (vitamin D3) 1,250 50,000 unit PO DAILY 09/02/21 03/14/22 History mcg (50,000 unit) capsule ferrous sulfate 325 mg (65 mg 325 mg PO DAILY 09/02/21 03/14/22 History iron) tablet cyanocobalamin (vitamin B-12) 1,000 mcg PO QAM #30 tabs 09/07/21 03/20/22 Rx 1,000 mcg tablet (Vitamin B-12) cyclobenzaprine 10 mg tablet 10 mg PO TID PRN muscle spasm #10 09/07/21 03/20/22 Rx tabs rivaroxaban 20 mg tablet (Xarelto) 10 mg PO DAILY@1700 #30 tabs 09/07/21 03/20/22 Rx Saccharomyces boulardii 250 mg 1 cap PO DAILY 10/25/21 03/20/22 History capsule (Daily Probiotic (S. boulardii)) acyclovir 200 mg capsule 200 mg PO BID 10/25/21 03/14/22 History dexamethasone 4 mg tablet 4 mg PO DAILY 10/25/21 03/20/22 History docusate sodium 100 mg capsule 100 mg PO DAILY 10/25/21 03/20/22 History lenalidomide 25 mg capsule 25 mg PO DAILY 10/25/21 03/14/22 History sulfamethoxazole 800 See Rx Instructions .Route .COMPLEX 10/25/21 03/20/22 History mg-trimethoprim 160 mg tablet (Bactrim DS) tamsulosin 0.4 mg capsule 1 cap PO DAILY 10/25/21 03/14/22 History triamcinolone acetonide 0.1 % See Rx Instructions .Route .COMPLEX 10/25/21 03/20/22 History topical cream levalbuterol HCl 1.25 mg/3 mL 0.63 mg (1.512 mL) inhalation 11/02/21 03/14/22 Rx solution for nebulization Q6HRT 7 days #42.336 mL trazodone 50 mg tablet 50 mg PO HS 30 days #30 tabs 11/02/21 03/20/22 Rx albuterol 90 mcg/actuation aerosol 90 mcg inhalation Q4H PRN Wheezing 03/14/22 03/14/22 History inhaler budesonide-formoterol HFA 160 2 puff inhalation Q12H 03/14/22 03/14/22 History mcg-4.5 mcg/actuation aerosol inhaler (Symbicort) lisinopril 2.5 mg tablet 2.5 mg PO DAILY 03/14/22 03/20/22 History Laboratory Tests 03/20/22 12:49 PT Pending INR Pending APTT Pending Patient hx anesthesia problems: none Family hx anesthesia problems: none Results Review: All pre-operative results and documents have been reviewed as part of the pre-operative evaluation. [facility] Past Medical History Medical History BPH (benign prostatic hyperplasia) S/p TURP Chronic venous stasis Stents in common iliac veins for the chronic edema Diabetes mellitus IGT versus DM2 DVT (deep venous thrombosis) Right common femoral in 2014 History of nephrolithiasis obstructing req hosp in 2014 Hx of essential hypertension Patient denies Multiple myeloma Osteoporosis Surgical History Surgical History History of colonoscopy Most recent colonoscopy 2016 reportedly negative History of right inguinal hernia repair History of transurethral resection of prostate Hx of hemorrhoidectomy Hx of tonsillectomy Family History Family History Mother Heart disease CHF (congestive heart failure) Father Parkinson disease Social History Social History Social History: Patient lives alone. Lifelong nonsmoker. Rare alcohol use. No drug use. Full code. He does not have an individual who would make medical decisions for him if he is unable. Smoking status: Never smoker Alcohol intake: former Substance use: never Living arrangements: correction Additional living arrangements comments: [facility] [phone]
[2022-03-20] MEDS: LACTATED RINGERS 1,000 ML 30 ML IV CONT (13:20)
[2022-03-20] MEDS: KETOROLAC 15 MG/ML VIAL (*BKC) IV PUSH (13:30)
[2022-03-20 13:35] LABS: INR 1.1; Prothrombin Time 13.8 Seconds (11.1-14.7)
[2022-03-20 13:36] LABS: Partial Thromboplastin Time 26.5 SECONDS (22.3-36.8)
--- NOTE | 2022-03-20 13:39 | PM.IMHP ---
H&P: HPI History of Present Illness Date/Time: 03/20/22 13:39 Chief Complaint: multiple myeloma Narrative: Pt is a 71 y/o M presenting for VAD placement. Pt requiring access for treatment of multiple myeloma. Pt denies previous central venous catheterization. Pt is R handed. Review of Systems Review of Systems: All systems reviewed & are unremarkable except as noted in HPI and below PMFSH Past Medical History Medical History BPH (benign prostatic hyperplasia) S/p TURP Chronic venous stasis Stents in common iliac veins for the chronic edema Diabetes mellitus IGT versus DM2 DVT (deep venous thrombosis) Right common femoral in 2014 History of nephrolithiasis obstructing req hosp in 2014 Hx of essential hypertension Patient denies Multiple myeloma Osteoporosis Surgical History Surgical History History of colonoscopy Most recent colonoscopy 2016 reportedly negative History of right inguinal hernia repair History of transurethral resection of prostate Hx of hemorrhoidectomy Hx of tonsillectomy Family History Family History Mother Heart disease CHF (congestive heart failure) Father Parkinson disease Social History Social History Social History: Patient lives alone. Lifelong nonsmoker. Rare alcohol use. No drug use. Full code. He does not have an individual who would make medical decisions for him if he is unable. Smoking status: Never smoker Alcohol intake: former Substance use: never Living arrangements: long term Additional living arrangements comments: [facility] [phone] Spiritual care concerns: Yes (No blood products) Meds Home Medications and Allergies Home Medications Medication Instructions Recorded Confirmed Type cholecalciferol (vitamin D3) 1,250 50,000 unit PO DAILY 09/02/21 03/14/22 History mcg (50,000 unit) capsule ferrous sulfate 325 mg (65 mg 325 mg PO DAILY 09/02/21 03/14/22 History iron) tablet cyanocobalamin (vitamin B-12) 1,000 mcg PO QAM #30 tabs 09/07/21 03/20/22 Rx 1,000 mcg tablet (Vitamin B-12) cyclobenzaprine 10 mg tablet 10 mg PO TID PRN muscle spasm #10 09/07/21 03/20/22 Rx tabs rivaroxaban 20 mg tablet (Xarelto) 10 mg PO DAILY@1700 #30 tabs 09/07/21 03/20/22 Rx Saccharomyces boulardii 250 mg 1 cap PO DAILY 10/25/21 03/20/22 History capsule (Daily Probiotic (S. boulardii)) acyclovir 200 mg capsule 200 mg PO BID 10/25/21 03/14/22 History dexamethasone 4 mg tablet 4 mg PO DAILY 10/25/21 03/20/22 History docusate sodium 100 mg capsule 100 mg PO DAILY 10/25/21 03/20/22 History lenalidomide 25 mg capsule 25 mg PO DAILY 10/25/21 03/14/22 History sulfamethoxazole 800 See Rx Instructions .Route .COMPLEX 10/25/21 03/20/22 History mg-trimethoprim 160 mg tablet (Bactrim DS) tamsulosin 0.4 mg capsule 1 cap PO DAILY 10/25/21 03/14/22 History triamcinolone acetonide 0.1 % See Rx Instructions .Route .COMPLEX 10/25/21 03/20/22 History topical cream levalbuterol HCl 1.25 mg/3 mL 0.63 mg (1.512 mL) inhalation 11/02/21 03/14/22 Rx solution for nebulization Q6HRT 7 days #42.336 mL trazodone 50 mg tablet 50 mg PO HS 30 days #30 tabs 11/02/21 03/20/22 Rx albuterol 90 mcg/actuation aerosol 90 mcg inhalation Q4H PRN Wheezing 03/14/22 03/14/22 History inhaler budesonide-formoterol HFA 160 2 puff inhalation Q12H 03/14/22 03/14/22 History mcg-4.5 mcg/actuation aerosol inhaler (Symbicort) lisinopril 2.5 mg tablet 2.5 mg PO DAILY 03/14/22 03/20/22 History Allergies Allergy/AdvReac Type Severity Reaction Status Date / Time Penicillins Allergy Intermediate Rash Verified 03/20/22 12:47 Exam Const: General: cooperative, comfortable, no acute distress, ill appearing and average body habitus Neck:
--- NOTE | 2022-03-20 13:41 | WPDHPUPDATE1 ---
History and Physical Update Update Date/Time: 03/20/22 13:41 History and Physical has been reviewed, including an updated exam of the patient. There are NO changes in the patient's condition. Risks, benefits, and alternatives have been discussed and questions answered. Patient agrees to proceed with procedure.
[2022-03-20] MEDS: ceFAZolin 2 GM/D5W 50 ML 2 GM/50 ML BAG IVPB (14:26)
[2022-03-20] MEDS: BUPIVACAINE/EPINEPHRINE 0.25% 50 ML VIAL 30 ML INFILTRATE (14:47)
[2022-03-20] MEDS: HEPARIN SODIUM 5,000 UNITS/ML VIAL 5000 UNITS IRRIGATION (14:48)
[2022-03-20] MEDS: HEPARIN SODIUM, PORCINE 10,000 UNITS/10 ML VIAL 10000 UNITS IV PUSH (14:50)
--- NOTE | 2022-03-20 15:06 | W.PM.PROC2 ---
Procedure Note - Detailed Date of Procedure 03/20/22 Pre-op Diagnosis Multiple Myeloma Post-op Diagnosis Same Procedure Performed Placement of left subclavian venous access device under fluoroscopic guidance Surgeon Maddie Hamilton MD Anesthesia MAC and Local Indications 71-year-old male with multiple myeloma requiring access for treatment Findings first stick L SCV Description of Procedure Patient was brought into the operating room and placed in the supine position. After adequate induction of mac anesthesia, the patient was prepped and draped in normal sterile fashion. Time-out was then done to verify the patient's identity, as well as the procedure being performed. I began by making a small incision in the left chest, I then gained access into the left subclavian vein with an 18 gauge needle. I then placed the guidewire into the vein and confirmed placement via fluoroscopic guidance. I then locally anesthetized the area in the left chest. I then enlarged the incision around the guidewire including making a subcutaneous pocket inferiorly to allow placement of the port itself. I then placed a dilating sheath over the guidewire into the left subclavian vein via sterile Seldinger technique. This was once again done and confirmed via fluoroscopic guidance. I then removed the dilator and the guidewire, now just leaving the sheath in the vein. I then fed the previously flushed catheter into the left subclavian vein under fluoroscopic guidance. At approximately 20 cm, the catheter was noted to be near the atrial caval junction. I then peeled away the sheath, now just leaving the catheter in the vein. I then was able to easily draw and flush from the catheter. The catheter was cut to fit and attached to the port itself. The port was placed into the previously made subcutaneous pocket and sutured in with 0 Ethibond suture. Final fluoroscopic view showed the termination of the catheter at the atrial caval junction with a nice smooth curvature back to the port itself. I was able to gain access to the port with a Nicole needle and was able to easily draw and flush from the port. I then flushed 4 cc of a final heparin flush into the port. The incision was closed with 3 0 Vicryl suture in the subcutaneous tissue and the skin was closed with 4 O Monocryl subcuticular suture. Dermabond was then placed on wound. The patient tolerated the procedure well and will be sent to the recovery room in stable condition. Implants L SCV VAD Estimated Blood Loss 5 Drains No Packing No Pathology None sent Complications No immediate complications Condition Stable Disposition PACU [facility] Billing Surgery - Charge Forward: Surgery Billing
[2022-03-20 15:13] VITALS: BP 114/78; PULSE 111; RESP 16; O2SAT 91
--- NOTE | 2022-03-20 15:25 | SUR.PHASEII ---
PORTABLE CXR DONE.
[2022-03-20 15:40] VITALS: BP 117/81; PULSE 110; RESP 16; O2SAT 94
[2022-03-20 16:08] VITALS: BP 115/79; PULSE 111; RESP 16
--- NOTE | 2022-03-20 16:13 | SUR.PHASEII ---
DRESSED, WAITING FOR RIDE.
== END 2022-03-20 16:35 | disposition home or self-care (01) ==
PROVIDERS: PCP Family Medicine; Visit Provider Surgery
PROC: (CPT 36561; principal; 2022-03-20 14:30)
DX: C90.00 Multiple myeloma not having achieved remission (principal); E11.9 Type 2 diabetes mellitus without complications; I87.8 Other specified disorders of veins; M81.0 Age-related osteoporosis without current pathological fracture; Z86.718 Personal history of other venous thrombosis and embolism; Z79.01 Long term (current) use of anticoagulants; Z79.51 Long term (current) use of inhaled steroids
CPT/HCPCS: 36561; 36415; 77001; 85610; 85730; C1788; J0690; J1644; J1885; J2704; J3010; J7120